=== PATIENT | male | born 1960 | race Caucasian/White ===

== ENCOUNTER 2020-09-25 19:25 | Emergency (ER) | payer BC, OTHER, SELFPAY ==
--- NOTE | 2020-09-25 19:34 | ED.EAR ---
HPI - Ear Problem General Chief complaint: Ear Stated complaint: Cough,Congestion, Lt ear History of Present Illness HPI Narrative: Patient states he has been having sinus congestion, nasal running at time with ear pressure and sore throat that started on Saturday progressed on Saturday and his ear started to really hurt today so he decided to take a nap and if it did not get better he would come in. Patient states that the ear did not feel better but worse . Related Data Home Medications Medication Instructions Recorded Confirmed adalimumab [Humira Pen] 40 mg SUBCUT MONTHLY 09/25/20 09/25/20 aspirin 81 mg PO DAILY 09/25/20 09/25/20 budesonide-formoterol [Symbicort] 4.5 inh INHALATION DAILY 09/25/20 09/25/20 chlorthalidone 52 mg PO DAILY 09/25/20 09/25/20 ibuprofen 800 mg PO DAILY 09/25/20 09/25/20 losartan 25 mg PO DAILY 09/25/20 09/25/20 Allergies Allergy/AdvReac Type Severity Reaction Status Date / Time acetaminophen [From [place]] AdvReac Severe Hallucinati Verified 09/25/20 19:51 ng hydrocodone [From [place]] AdvReac Severe Hallucinati Verified 09/25/20 19:51 ng Review of Systems Review of Systems: Narrative: CONSTITUTIONAL: Denies fever, chills, or sweats. EYES: Denies visual changes, redness, or discharge. ENT: Reports rhinorrhea, congestion, sore throat, or complains of otalgia. CARDIOVASCULAR:Denies chest pain, palpitations, or edema. RESPIRATORY: Reports cough or dyspnea. GASTROINTESTINAL: Denies abdominal pain, nausea, vomiting, or diarrhea. GENITOURINARY: Denies dysuria or hematuria. SKIN:[Denies rash or itching. MUSCULOSKELETAL:Denies back pain, joint pain, or myalgia. NEUROLOGIC: Denies headache, numbness, or weakness. PSYCHIATRIC:Denies anxiety or depression PMFSH Social History Social History Alcohol intake: current Comments At time as signature, I have reviewed and agree with nursing past medical, social, surgical and family history. Please see nursing chart for further information. There is no relevant family history pertinent to the presenting complaint. Exam Narrative: Exam Narrative: My normal exam GENERAL:Well-appearing, well-nourished, and in no acute distress. HEAD:Normocephalic, atraumatic. EYES: PERRLA and EOMI. ENT: Nares clear, clear rhinorrhea . Mucous membranes moist. left TM bulging and fluid noted with erythema and blood noted in auditory canal. Pharyngeal erythema congestion noted. NECK: Supple. CHEST: Clear to auscultation. No respiratory distress. HEART: Regular rate and rhythm. No murmur heard. Normal peripheral pulses. ABDOMEN: Soft, nontender, nondistended, normal active bowel sounds. EXTREMITIES: Normal range of motion. No edema. SKIN: Warm, dry, no rash. NEURO: No focal deficits. Alert and oriented x3. Course OUTPATIENT ADMITTING CLERK/PA Physician Supervision Discussion with patient that he could take antihistamines but it is not recommended for long period of time since he has high blood pressure but for the next couple of day he may benefit from it and get the fluid out from behind his ear. Vital Signs Vital signs: Vital Signs Temperature 97.7 F 09/25/20 19:38 Pulse Rate 09/25/20 19:38 Respiratory Rate 09/25/20 19:38 Blood Pressure 146/82 H 09/25/20 19:38 Pulse Oximetry 98 09/25/20 19:38 Temperature 97.7 F 09/25/20 19:38 Pulse Rate 09/25/20 19:38 Respiratory Rate 18 09/25/20 19:38 Blood Pressure 146/82 H 09/25/20 19:38 Pulse Oximetry 98 09/25/20 19:38 Medical Decision Making Vital Signs Vital Signs: Vital Signs Temperature 97.7 F 09/25/20 19:38 Pulse Rate 09/25/20 19:38 Respiratory Rate 09/25/20 19:38 Blood Pressure 146/82 H 09/25/20 19:38 Pulse Oximetry 98 09/25/20 19:38 Temperature 97.7 F 09/25/20 19:38 Pulse Rate 09/25/20 19:38 Respiratory Rate 18 09/25/20 19:38 Blood Pressure 146/82 H 09/25/20 19:38 Pulse Oximetry 98 09/25/20 19:38 Discharge Plan [facility]charge [facility]
[2020-09-25 19:38] VITALS: BP 146/82; PULSE 69; RESP 18; TEMP 36.5; O2SAT 98
== END 2020-09-25 20:02 | disposition home or self-care (01) ==
PROVIDERS: Emergency Provider Nurse Practitioner Family
DX: H72.92 Unspecified perforation of tympanic membrane, left ear (principal); H66.90 Otitis media, unspecified, unspecified ear; I10 Essential (primary) hypertension; J45.909 Unspecified asthma, uncomplicated; M06.9 Rheumatoid arthritis, unspecified; Z96.653 Presence of artificial knee joint, bilateral
CPT/HCPCS: 99213; G0463

== ENCOUNTER 2022-07-02 18:55 | Emergency (ER) | payer BC, OTHER, SELFPAY ==
[2022-07-02 19:09] VITALS: BP 133/77; PULSE 84; RESP 18; TEMP 37.4; O2SAT 95
--- NOTE | 2022-07-02 19:33 | ED.URI ---
HPI - URI/Sore Throat General Chief Complaint: Upper Respiratory Infection Stated Complaint: covid + home test Source: patient Mode of arrival: ambulatory Limitations: no limitations History of Present Illness HPI Narrative: 62-year-old male [facility] complains of headache, runny nose, cough, body aches, chills, fatigue since yesterday. Patient reports that he tested positive for COVID tonight at 5:00 p.m.. Patient reports that he is here today wanting antivirals. Patient reports that he has inhaler at home that he has not used. Patient is a nonsmoker. Patient denies recent travel. Patient denies sick contacts. Patient has shortness of breath, wheezing, nausea vomiting or diarrhea. Patient has history of RA, has received his last Humira injection approximately 1 week ago MD elicited complaint: cough, rhinorrhea and nasal congestion Onset (ago): day(s) (2) Able to tolerate fluids by mouth: Yes Exacerbating factors: nothing Relieving factors: nothing Treatments prior to arrival: cold medicine Related Data Home Medications Medication Instructions Recorded Confirmed adalimumab 40 mg/0.8 mL 40 mg subcut MONTHLY 09/25/20 07/02/22 subcutaneous pen kit (Humira Pen) chlorthalidone 25 mg tablet 52 mg PO DAILY 09/25/20 07/02/22 losartan 25 mg tablet 25 mg PO DAILY 09/25/20 07/02/22 mometasone-formoterol HFA 200 inhalation 07/02/22 mcg-5 mcg/actuation aerosol inhaler (Dulera) tamsulosin 0.4 mg capsule mg PO 07/02/22 Allergies Allergy/AdvReac Type Severity Reaction Status Date / Time acetaminophen [From [place]] AdvReac Severe Hallucinati Verified 10/11/20 10:49 ng hydrocodone [From [place]] AdvReac Severe Hallucinati Verified 10/11/20 10:49 ng Review of Systems Constitutional: Constitutional: Reports chills, Reports fatigue, Denies fever(s) and Denies weakness ENT: Denies vertigo, Denies dizziness, Denies epistaxis, Reports nasal congestion and Reports sore throat Respiratory: Respiratory: Reports cough, Denies dyspnea and Denies wheezing Gastrointestinal: Gastrointestinal: Denies diarrhea, Denies nausea and Denies vomiting Integumentary/Breasts: Skin/Breast: Denies pruritus, Denies erythema, Denies rash and Denies skin ulcer Neurologic: Denies confusion, Denies vertigo, Denies dizziness, Denies syncope and Reports headache(s) PMFSH Family History Family History Father Heart disease Mother Diabetes mellitus Heart disease Grandparent Diabetes mellitus Social History Social History Smoking status: Never smoker Alcohol intake: current Substance use: never Substance use type: does not use Gender identity (if verbalized by the patient): Male Comments At time of signature, I agree with nursing past medical, surgical, social and family history. There is no relevant family history pertinent to the presenting complaint. Exam Const: General: healthy appearing and no acute distress Nutritional Appearance: well nourished Orientation/consciousness: patient oriented x3 Limitations: no limitations HENMT: Head: normal to inspection Ears: external ears normal, TM's normal bilaterally and EAC's normal Face and sinus: normal facial exam Mouth: Yes Normal oral and palatal mucosa present, Yes lip normal and Yes moist mucous membranes Teeth and gingiva: dentition normal Throat: posterior oropharynx normal and uvula midline Other: Moderate nasal congestion noted Eyes: Conjunctivae: conjunctivae normal Neck: Neck: normal visual inspection Resp: Effort & Inspection: normal respiratory effort and not labored Auscultation: clear to auscultation bilaterally, no crackles, no rales, no rhonchi and no wheezes Cardio: Rate: regular rate Rhythm: regular rhythm Heart sounds: no murmurs Skin: General skin exam: normal color Rashes: no rashes Neuro: General: patient reinaldo
== END 2022-07-02 19:47 | disposition home or self-care (01) ==
PROVIDERS: Emergency Provider Nurse Practitioner Family
DX: U07.1 COVID-19 (principal); I10 Essential (primary) hypertension; J45.909 Unspecified asthma, uncomplicated; M06.9 Rheumatoid arthritis, unspecified; Z96.653 Presence of artificial knee joint, bilateral
CPT/HCPCS: 99213; G0463

== ENCOUNTER 2023-09-16 08:43 | Inpatient (IN) | payer BC, OTHER, SELFPAY ==
[2023-09-16] VITALS (33 sets, daily range): BP systolic 108–150; BP diastolic 66–84; PULSE 78–118; RESP 10–23; TEMP 36.8–38.1; O2SAT 92–99; BMI 29.5
--- NOTE | ~2023-09-16 | US_ITS ---
EXAMINATION: US carotid duplex BI DATE: 09/20/2023 11:56 INDICATION: Cerebrovascular disease. TECHNIQUE: Grayscale, color Doppler, and pulsed Doppler images of the cervical carotid arteries were obtained. The degree of vessel stenosis is placed in one of the following categories: normal, <50%, 5 0-69%, >=70% but less than near-occlusion, near-occlusion, or total occlusion. Note that percent sten osis relative to normal distal artery lumen diameter is indirectly measured from velocity measurement s as described by Jaxon, et al. Radiology 2003; 229:340-346. COMPARISON: None. FINDINGS: RIGHT: The right common carotid artery (CCA) peak systolic velocity (PSV) is 68 cm/s. The right internal car otid artery (ICA) PSV is 50 cm/s. The right ICA end-diastolic velocity (EDV) is 20 cm/s. The right IC A/CCA PSV ratio is 0.7. Grayscale and color Doppler images yield an estimate of <50% diameter reducti on from plaque in the ICA. There is antegrade flow in the right vertebral artery. LEFT: The left CCA PSV is 58 cm/s. The left ICA PSV is 63 cm/s. The left ICA EDV is 22 cm/s. The left ICA/C CA PSV ratio is 1.1. Grayscale and color Doppler images yield an estimate of <50% diameter reduction from plaque in the ICA. There is antegrade flow in the left vertebral artery. IMPRESSION: 1. <50% stenosis in the right internal carotid artery. 2. <50% stenosis in the left internal carotid artery. Reviewed, dictated and finalized at location A.
--- NOTE | ~2023-09-16 | CT_ITS ---
EXAMINATION: CT chest abdomen pelvis w con DATE: 09/21/2023 16:44 INDICATION: sepsis, chest wall cellulitis . TECHNIQUE: Computed tomography (CT) of the chest, abdomen, and pelvis was performed with 100 mL Omnip aque-350 intravenous contrast. Automated exposure control and iterative reconstruction technique were employed. The dose-length product was 1090.88 mGy-cm. COMPARISON: CT soft tissue neck, 10/08 FINDINGS: CHEST: Thoracic aorta: No significant dilation. No dissection. Lung parenchyma and airways: Biapical pleural scarring. Bilateral dependent atelectasis. Patent airwa ys. Thoracic inlet, axillae and chest wall: No thyroid or soft tissue mass. Prominent right subpectoral a nd axillary lymph nodes. Enlarged right paratracheal lymph nodes. Subcutaneous stranding in the right lower neck. Mediastinum: No mass or lymphadenopathy. Heart and pericardium: Mild cardiomegaly. No pericardial effusion. Coronary artery calcifications: Moderate. Pleura: Trace left pleural and small right pleural fluid collections. Thoracic bones: No acute osseous finding in the chest. ABDOMEN/PELVIS: Liver: Normal. Biliary/Gallbladder: Cholelithiasis. No bile duct dilation. Pancreas: No mass or duct dilation. Spleen: 13 mm hemangioma. Adrenals:No mass. Kidneys: No suspicious mass, obstructing stone, or hydronephrosis. Simple bilateral renal cysts. Mild bilateral perinephric and periureteral stranding. GI tract: No small or large bowel dilation. Normal appendix. Diverticulosis without diverticulitis. Mesentery/Peritoneum: No ascites, mass, or free air. Retroperitoneum: No mass Atherosclerotic abdominal aortic and/or arterial calcifications. Pelvis: Pelvic organs are within normal limits. Minimal free pelvic fluid. Soft Tissues: Soft tissues and body wall unremarkable. Abdominopelvic bones: No acute osseous finding in the abdomen/pelvis. IMPRESSION: Bilateral dependent atelectasis, greater in the right lung. Infection is not excluded. Trace left and small right pleural effusions. Right lower neck subcutaneous stranding, with paratracheal lymphadenopathy, similar to the prior exam ination. Correlate for recent procedure or clinical findings of infection/cellulitis. Mild perinephric stranding and periureteral stranding, which could represent ascending infection. Cor relate with urinalysis. Reviewed, dictated and finalized at location K. IMPRESSION: Bilateral dependent atelectasis, greater in the right lung. Infection is not ex cluded. Trace left and small right pleural effusions. Right lower neck subcutaneous stranding, with paratracheal lymphadenopathy, sim ilar to the prior examination. Correlate for recent procedure or clinical findi ngs of infection/cellulitis. Mild perinephric stranding and periureteral stranding, which could represent as cending infection. Correlate with urinalysis.
--- NOTE | ~2023-09-16 | CT_ITS ---
CT soft tissue neck w con Ordering provider: Juany Pastor PA-C History: 63 years Male with . swelling/fullness R lateral lower neck . Comparison: None. Technique: CT soft tissues neck was performed with contrast. . Automated exposure control and iterat gibran reconstruction technique were employed. The dose-length product was 611.87 mGy-cm. 100 mL Omnipaq ue 350 was given IV. Findings: LOWER HEAD: The visualized brain parenchyma, optic globes/orbits and mastoids are normal. Bilateral ethmoid sinus disease. Bilateral maxillary sinus disease. SALIVARY GLANDS: Normal. THYROID: Normal. SUPRAHYOID DEEP SPACES: Enlarged lymph nodes are seen in the parapharyngeal and posterior triangle ar eas. The largest measures 1.4 x 0.9 CNM. CAROTID ARTERIES: Normal. JUGULAR VEINS: Normal. TONSILS: Normal. ORAL CAVITY: Partially obscured by dental amalgam but normal as visualized. PHARYNX, LARYNX AND TRACHEA: Patent and normal. No prevertebral soft tissue swelling. SUPERFICIAL SOFT TISSUES: Fat stranding in the right supraclavicular area with multiple lymph nodes t he largest measures 2.2 cm. Edema in the right subcutaneous tissues of the supraclavicular area is al so noted THORACIC INLET/VISUALIZED UPPER CHEST: Normal. SKELETAL: Age appropriate degenerative changes. IMPRESSION: 1. Fat stranding in the right lower neck with swelling and subcutaneous edema. This is most likely i nflammatory. Follow-up advised. 2. Enlarged lymph nodes in the parapharyngeal and posterior triangle areas. Reviewed, dictated and finalized at location A. IMPRESSION: 1. Fat stranding in the right lower neck with swelling and subcutaneous edema. This is most likely inflammatory. Follow-up advised. 2. Enlarged lymph nodes in the parapharyngeal and posterior triangle areas.
--- NOTE | ~2023-09-16 | MR_ITS ---
MRI of the cervical spine Clinical History: Demyelinating disease Technique: Axial T2-weighted and gradient images, and sagittal T1-weighted, T2-weighted, and STIR tania ges were acquired. Following intravenous administration of 20 cc MultiHance gadolinium, T1-weighted f at-sat imaging was performed in the axial and sagittal planes. Findings: There is no fracture or subluxation of the cervical spine. No suspicious bone marrow signal abnormality seen. At C2-C3, there is mild central disc bulge. There is mild bilateral facet arthropathy. No central can al stenosis, cord compression or definite neural foraminal narrowing. At C3-C4, there is disc osteophyte complex and mild facet arthropathy, with moderate to severe canal stenosis and cord compression. There is bilateral significant neural foraminal narrowing. At C4-C5, there is advanced degenerative disc narrowing. Disc osteophyte complex and facet arthropath y result in moderate to severe spinal canal stenosis and cord compression. There is severe bilateral neural foraminal narrowing. At C5-C6, there is advanced degenerative disc narrowing. There is disc osteophyte complex resulting i n moderate canal stenosis and cord compression. There is severe bilateral neural foraminal narrowing. At C6-C7, there is disc osteophyte complex resulting in moderate to severe spinal canal stenosis and cord compression. There is moderate to severe bilateral neural foraminal narrowing, left worse than r ight, with left-sided facet arthropathy in particular. Possible minimal areas of central increased signal in the spinal cord, this is most likely related to myelomalacia/compression changes rather than demyelinating disease. Paravertebral soft tissues are u nremarkable. No abnormal postcontrast enhancement identified. Impression: Severe degenerative spondylosis, as detailed above, with moderate to severe spinal canal stenosis and cord compression at C3-C4, C4-C5, C5-C6, and C6-C7. Mild increased signal centrally in the cord is l ikely related to myelomalacia/cord compression rather than demyelinating disease. Multilevel neural foraminal narrowing, as above. Reviewed, dictated and finalized at location M. Impression: Severe degenerative spondylosis, as detailed above, with moderate to severe spi nal canal stenosis and cord compression at C3-C4, C4-C5, C5-C6, and C6-C7. Mild increased signal centrally in the cord is likely related to myelomalacia/cord compression rather than demyelinating disease. Multilevel neural foraminal narrowing, as above.
--- NOTE | ~2023-09-16 | MR_ITS ---
MR brain/brain stem wo/w con Ordering provider: Mateo Fonseca MD History: 63 years Male with . hallucinations, bacteremia . Comparison: CT head performed yesterday. Technique: MRI brain was performed with and without contrast. 20 mL of MultiHance was given IV. FINDINGS: BONES: Normal. CRANIOCERVICAL JUNCTION: normal. PITUITARY: Normal. MAJOR INTRACRANIAL VESSELS: Normal flow void. OPTIC NERVES AND CRANIAL NERVES VII AND VIII COMPLEXES: Bright signal is seen in the right optic nerv e with postcontrast enhancement. Evaluation for optic neuritis is advised. BRAIN PARENCHYMA AND CSF SPACES: Mild nonspecific T2 white matter hyperintensities are seen in a yvette ateral periventricular and deep white matter distribution which are likely related to chronic ischemi c small vessel disease. Mild diffuse cortical atrophy. The brainstem and cerebellum are normal. No ac baljinder or chronic intracranial hemorrhage. No extra axial fluid collections. Diffusion weighted and ADC mapping images reveal no recent ischemia. No midline shift or mass effect. No abnormal contrast enhan cement. PARANASAL SINUSES: Bilateral ethmoid sinus disease. Bilateral sphenoid sinus disease. Bilateral maxil esa sinus disease. MASTOIDS: Minimal fluid effusions seen in the left mastoid air cells posteriorly. SUPERFICIAL/SURROUNDING SOFT TISSUES: Normal. IMPRESSION: 1. Multiple T2 and FLAIR hyperintense signal areas which is suggestive of deep white matter ischemic changes versus white matter disease. Clinical correlation advised. 2. T2 bright signal in the right optic nerve with postcontrast enhancement. Evaluation for optic arely ritis is advised.. 3. Pansinusitis. 4. No other definite abnormality seen. Reviewed, dictated and finalized at location A. IMPRESSION: 1. Multiple T2 and FLAIR hyperintense signal areas which is suggestive of deep white matter ischemic changes versus white matter disease. Clinical correlatio n advised. 2. T2 bright signal in the right optic nerve with postcontrast enhancement. Ev aluation for optic neuritis is advised.. 3. Pansinusitis. 4. No other definite abnormality seen.
--- NOTE | ~2023-09-16 | MR_ITS ---
MRI of the thoracic spine Clinical History: Demyelinating disease Technique: Axial T2-weighted and gradient images, and sagittal T1-weighted, T2-weighted, and STIR tania ges were acquired. Following intravenous administration of 20 cc MultiHance gadolinium, T1-weighted f at-sat imaging was performed in the axial and sagittal planes. Findings: There is no fracture or subluxation of the thoracic spine. Vertebral bodies maintain normal height and alignment. No suspicious bone marrow signal abnormality seen. No disc bulge or herniation seen at any thoracic level. There is no spinal canal stenosis, cord compr ession, or definite neural foraminal narrowing at any thoracic level. No abnormal signal seen in the spinal cord. Paravertebral soft tissues are unremarkable. No abnormal postcontrast enhancement seen. IMPRESSION: No significant abnormality. Reviewed, dictated and finalized at [facility]. IMPRESSION: No significant abnormality.
--- NOTE | ~2023-09-16 | MR_ITS ---
EXAMINATION: MR brain/brain stem wo/w con DATE: 09/24/2023 13:11 INDICATION: Right optic neuritis. TECHNIQUE: Magnetic resonance imaging (MRI) of the brain and brainstem was performed without and with 20 mL Multihance intravenous contrast. Sequences included sagittal and axial T1-weighted SE, axial d iffusion-weighted FS SE, axial 3D SWAN, axial T2-weighted FLAIR, and axial T2-weighted FSE. Postcontr ast axial and coronal T1-weighted SE was obtained. Apparent diffusion coefficient (ADC) maps were cre ated. COMPARISON: 09/18/2023 FINDINGS: There are no areas of restricted diffusion to suggest acute infarction. No intracranial hemorrhage or abnormal intracranial mass lesion. There are scattered areas of nonspecific increased T2-weighted si gnal intensity in the cerebral white matter, predominantly involving the deep and periventricular whi te matter which is within normal limits for age and likely sequela of chronic small vessel ischemic d isease. There are no intraparenchymal signal abnormalities seen on the other pulse sequences. The helena tricles are symmetric and normal in size. There are no abnormal extra-axial fluid collections. Flow v oids are seen in the cerebral arteries on the T2-weighted sequences consistent with their expected pa tency. Visualized orbits and soft tissues are unremarkable. Specifically there is no asymmetric swell ing or abnormal T2 signal or enhancement along either optic nerve. There has been interval decrease i n previously moderate severity, currently mild mucosal thickening in the bilateral ethmoid maxillary and sphenoid sinuses. Unchanged small left mastoid effusion. There are no areas of abnormal enhanceme nt on the post contrast images. IMPRESSION: 1. Mild scattered foci of white matter T2 hyperintensity which is within normal limits for age and li raissa sequela of chronic small vessel ischemic disease. No acute intracranial process. 2. Normal symmetric appearance to the bilateral optic nerves with no swelling, increased T2 signal or enhancement to suggest optic neuritis. 3. Interval improvement in previously moderate, now mild mucosal thickening throughout the bilateral maxillary, ethmoid and sphenoid sinuses. Reviewed, dictated and finalized at location A. IMPRESSION: 1. Mild scattered foci of white matter T2 hyperintensity which is within normal limits for age and likely sequela of chronic small vessel ischemic disease. No acute intracranial process. 2. Normal symmetric appearance to the bilateral optic nerves with no swelling, increased T2 signal or enhancement to suggest optic neuritis. 3. Interval improvement in previously moderate, now mild mucosal thickening thr oughout the bilateral maxillary, ethmoid and sphenoid sinuses.
--- NOTE | ~2023-09-16 | US_ITS ---
EXAMINATION: US venous doppler [facility] DATE: 09/22/2023 08:34 INDICATION: Fever. TECHNIQUE: Grayscale ultrasound images without and with compression and Doppler ultrasound images of the bilateral lower extremity veins were obtained. COMPARISON: None. FINDINGS: The visualized portions of right common femoral vein, profunda (deep) femoral vein, femoral vein, pop liteal vein, peroneal veins, posterior tibial veins, and greater saphenous vein outflow are patent. The visualized portions of left common femoral vein, profunda femoral vein, femoral vein, popliteal v ein, peroneal veins, posterior tibial veins, and greater saphenous vein outflow are patent. IMPRESSION: 1. No deep venous thrombosis. Reviewed, dictated and finalized at location E.
--- NOTE | ~2023-09-16 | US_ITS ---
EXAMINATION: US venous doppler [facility] DATE: 09/23/2023 14:31 INDICATION: Lower limb swelling TECHNIQUE: Grayscale images without and with compression and Doppler images of the bilateral upper ex tremity veins were obtained. COMPARISON: None. FINDINGS: There is noncompressible occlusive appearing thrombus of the right cephalic vein at the elbow The rig ht internal jugular vein, subclavian vein, axillary vein, brachial vein, basilic vein, cephalic vein, radial vein, and ulnar vein are patent. IMPRESSION: 1. Occlusive appearing superficial venous thrombosis in the portion of the right cephalic vein at the elbow. No other venous thrombosis throughout the remainder of the right upper limb. Reviewed, dictated and finalized at location A. IMPRESSION: 1. Occlusive appearing superficial venous thrombosis in the portion of the righ t cephalic vein at the elbow. No other venous thrombosis throughout the remaind er of the right upper limb.
--- NOTE | 2023-09-16 09:59 | ED.GENADULT ---
HPI - General Adult General Chief complaint: Unspecified Stated complaint: swollen neck, vomiting, Time Seen by Provider: 09/16/23 09:41 Source: patient Mode of arrival: ambulatory Limitations: no limitations History of Present Illness HPI narrative: patient is a 63-year-old male who presents the ED with report of swelling to his right lateral neck. Patient reports he has had sinus drainage and a mild cough over the last several days. He has been taking DayQuil/ NyQuil for the symptoms with relief. This morning, he woke up with nausea and fullness/ swelling to his right lateral lower neck/ upper chest. Reports some discomfort with turning/rotating neck to L. Denies vomiting, abdominal pain. Denies any known injury. He then prompted here for further evaluation. He denies noticing any swelling yesterday. He denies difficulty breathing or swallowing. Denies shortness of breath. Denies fevers. Denies anterior chest pain. Related Data Home Medications Medication Instructions Recorded Confirmed chlorthalidone 25 mg tablet 25 mg PO DAILY 09/25/20 09/16/23 losartan 25 mg tablet 25 mg PO DAILY 09/25/20 09/16/23 mometasone-formoterol HFA 200 2 puff inhalation BID 07/02/22 09/16/23 mcg-5 mcg/actuation aerosol inhaler (Dulera) adalimumab 40 mg/0.8 mL See Rx Instructions .Route .COMPLEX 09/16/23 09/16/23 subcutaneous pen kit (Humira Pen) Allergies Allergy/AdvReac Type Severity Reaction Status Date / Time acetaminophen [From [place]] AdvReac Severe Hallucinati Verified 10/11/20 10:49 ng hydrocodone [From [place]] AdvReac Severe Hallucinati Verified 10/11/20 10:49 ng Review of Systems Review of Systems: CONSTITUTIONAL: Denies fever, chills, or sweats. ENT: See HPI. CARDIOVASCULAR: Denies chest pain. RESPIRATORY: Denies dyspnea. GASTROINTESTINAL: See HPI. GENITOURINARY: Denies dysuria or hematuria. MUSCULOSKELETAL: See HPI. NEUROLOGIC: Denies headache, dizziness, numbness, or weakness. All systems reviewed & are unremarkable except as noted in HPI and below PMFSH Past Medical History Medical History (Updated 09/16/23 @ 17:11 by Juany Pastor PA-C) Asthma Hypertension Rheumatoid arthritis Surgical History Surgical History History of bilateral knee arthroplasty (2016) Family History Family History Father Heart disease Mother Diabetes mellitus Heart disease Grandparent Diabetes mellitus Social History Social History (Updated 09/16/23 @ 13:26 by Gail Schreiber PA-C) Social History: Surrogate medical decision maker: Tori Irene, spouse. Code status: Full code. Smoking status: Never smoker Alcohol intake: current Substance use: never Substance use type: does not use Do You Feel Safe in your Home?: Yes Lack of Transportation: No Lack of Food: Never True Current Housing: I Have Housing Concerned About Future Housing: No Difficulty Paying Gas/Electric Bills: No Difficulty Paying for Meds: No Currently Unemployed: No Education: Trade/Vocational Certificate Difficulty w/ Childcare or Family Care: No Additional living arrangements comments: Lives with spouse in [place]. Additional occupation/education comments: [employer]. Spiritual care concerns: No Exam Narrative: GENERAL: Well appearing, well-nourished, non-toxic, in no acute distress. HEAD: Normocephalic, atraumatic. NECK: No midline cervical spinal tenderness. Area of swelling, fullness to R lateral lower neck down to R clavicular region, extending to R upper chest. No appreciable crepitus. Mild bruising vs erythema forming. Mild focal tenderness. No significant warmth or palpable fluctuance. No wounds. RESPIRATORY: Airway patent, respirations nonlabored. Clear to auscultation bilaterally, no rales, rhonchi, wheezing. No focal lung sounds. No stridor. CARDIOVASCULAR
[2023-09-16 10:00] LABS: Basophils Absolute Auto 0.1 K/mm3 (0.0-0.1); Basophils Percent Auto 0.4 % (0.2-1.2); Eosinophils Percent Auto 0.1 % (0-4.4); Hematocrit 39.9 % (42.0-52.0); Hemoglobin 14.1 g/dL (14.0-18.0); Immature Granulocyte Absolute 0.24 K/mm3 (0.00-0.031); Immature Granulocyte Percent A 1.2 % (0-0.5); Lymphocytes Percent Auto 3.4 % (18.3-44.2); Mean Corpuscular HGB Conc 35.3 g/dl (32-36); Mean Corpuscular Hemoglobin 34.6 pg (26-34); Mean Platelet Volume 10.8 fl (7.4-10.4); Monocytes Absolute Auto 1.7 K/mm3 (0.1-0.6); Monocytes Percent Auto 8.1 % (2.6-8.5); Neutrophils Percent Auto 86.8 % (45.5-73.1); Platelet Count Result 251 k/mm3 (150-375); Red Blood Count 4.07 M/mm3 (4.6-6.20); Red Cell Distribution Width 12.2 % (11.5-14.5); White Blood Count 20.7 K/mm3 (4.5-10.0)
[2023-09-16 10:11] LABS: Alanine Aminotransferase 30 U/L (6-50); Alkaline Phosphatase 73 U/L (38-126); Anion Gap 8 mmol/L (4-12); Aspartate Amino Transferase 36 U/L (17-59); Bilirubin,Total 0.8 mg/dL (0.2-1.3); Blood Urea Nitrogen 23 mg/dL (9-20); Calcium 9.1 mg/dL (8.4-10.2); Carbon Dioxide 27 mmol/L (22-30); Chloride 103 mmol/L (98-107); Estimated CRCL calculation 98 ml/min; Estimated Glomerular Filt Rate > 60; Glucose 111 mg/dL (65-110); Potassium 3.2 mmol/L (3.4-5.0); Sodium 138 mmol/L (137-145)
[2023-09-16 10:36] LABS: Influenza A QL RT-PCR Negative (Negative); Influenza B QL RT-PCR Negative (Negative); RSV RNA, RT-PCR Negative (Negative); SARS-CoV-2 RNA PCR Negative (Negative)
[2023-09-16] MEDS: POTASSIUM CHLORIDE 20 MEQ ER TABLET 40 MEQ PO (11:12)
[2023-09-16 11:20] LABS: Magnesium 1.6 mg/dL (1.6-2.3)
[2023-09-16] MEDS: MAGNESIUM SULF 1 GM/D5W 100 ML 1 GM/100 ML BAG IVPB (11:56)
[2023-09-16] MEDS: PIPERACILLN/TAZ 3.375GM/NS50ML 3.375 GM/50 ML BAG IVPB (13:09)
[2023-09-16] MEDS: MORPHINE SULFATE (*CRX) 4 MG/ML INJ IV PUSH (13:09)
[2023-09-16] MEDS: ONDANSETRON INJ 4 MG/2 ML VIAL IV PUSH (13:09)
--- NOTE | 2023-09-16 13:18 | PM.IMHP ---
H&P: HPI History of Present Illness Date/Time: 09/16/23 14:15 Chief Complaint: Swelling in the right neck. Narrative: This is a very pleasant 63-year-old male with hypertension, asthma, and rheumatoid arthritis on Humira who presented to the emergency department for evaluation of swelling in the right neck the patient provides the following history. He gives a 3 day history of sinus congestion and nonproductive cough for which he has been taking DayQuil and NyQuil with symptom relief. This morning he awoke with discomfort and fullness in the right lower neck/upper chest and with further questioning he mentions that bilateral supraclavicular lymph nodes seemed a bit swollen and tender the last day or so. He has not had any injury or trauma and denied open wounds over the affected area. He also denies fever, otalgia, odynophagia, dental pain, shortness of breath, and difficulties swallowing. He has no history of cellulitis and has no known history multidrug resistant organisms. In the ED: He was afebrile on arrival with stable vital signs. Labs were significant for a WBC count of 20.7, potassium 3.2, BUN 23, creatinine 0.80, lactic acid 1.2. Viral panel was negative. Soft tissue neck CT showed fat stranding in the right lower neck with swelling and subcutaneous edema, likely inflammatory, and enlarged lymph nodes in the pair of pharyngeal and posterior triangle areas. He was given a dose of piperacillin/tazobactam and vancomycin and is being admitted in this setting for further treatment. Review of Systems Review of Systems: 12 systems were reviewed and are negative except for as per HPI. [facility] Past Medical History Medical History (Updated 09/16/23 @ 20:12 by Gail Schreiber PA-C) Asthma Hypertension Immunocompromised patient Rheumatoid arthritis Surgical History Surgical History History of bilateral knee arthroplasty (2016) Family History Family History Father Heart disease Mother Diabetes mellitus Heart disease Grandparent Diabetes mellitus Social History Social History Social History: Surrogate medical decision maker: Tori Irene, spouse. Code status: Full code. Smoking status: Never smoker Alcohol intake: current Substance use: never Substance use type: does not use Do You Feel Safe in your Home?: Yes Lack of Transportation: No Lack of Food: Never True Current Housing: I Have Housing Concerned About Future Housing: No Difficulty Paying Gas/Electric Bills: No Difficulty Paying for Meds: No Currently Unemployed: No Education: Trade/Vocational Certificate Difficulty w/ Childcare or Family Care: No Additional living arrangements comments: Lives with spouse in [place]. Additional occupation/education comments: [employer]. Spiritual care concerns: No Meds Home Medications and Allergies Home Medications Medication Instructions Recorded Confirmed Type chlorthalidone 25 mg tablet 25 mg PO DAILY 09/25/20 09/16/23 History losartan 25 mg tablet 25 mg PO DAILY 09/25/20 09/16/23 History mometasone-formoterol HFA 200 2 puff inhalation BID 07/02/22 09/16/23 History mcg-5 mcg/actuation aerosol inhaler (Dulera) adalimumab 40 mg/0.8 mL See Rx Instructions .Route .COMPLEX 09/16/23 09/16/23 History subcutaneous pen kit (Humira Pen) Allergies Allergy/AdvReac Type Severity Reaction Status Date / Time acetaminophen [From [place]] AdvReac Severe Hallucinati Verified 10/11/20 10:49 ng hydrocodone [From [place]] AdvReac Severe Hallucinati Verified 10/11/20 10:49 ng Vital Signs Vital Signs - 24 hr 09/16/23 08:49 09/16/23 09:40 09/16/23 09:44 Temperature 99.1 F Pulse Rate 106 H 95 Respiratory Rate 14 20 18 Blood Pressure 126/84 121/72 Pulse Oximetry 95 96 95 Oxygen Delivery Room
[2023-09-16 13:19] LABS: Lactic Acid Reflex 1.2 mmol/L (0.7-2.0)
--- NOTE | 2023-09-16 13:42 | PC.NURSE ---
called report at 1342- Nurse busy in a patient room and was told she would call back in about five minutes
--- NOTE | 2023-09-16 14:06 | ADMGEN ---
This patient, Montez Irene, was admitted to Medical Room 241-. Patient/family oriented to hospital policies and general routines including ID bracelet, bed and alarms, visiting hours, pain management, procedures, bathroom and other care routines, personal items, smoking policy, room service/diet, and visiting hours. Information on how to activate the Rapid Response Team has been discussed. Patient/Family are encouraged to report perceived risks to care and to ask questions if they do not understand what they are told or what they should do.
[2023-09-16] MEDS: VANCOMYCIN 1,250 MG/NS 250 ML 1,250 MG/250 ML BAG 166.67 MG IVPB ×2 (14:21→15:50)
[2023-09-16 15:06] LABS: MRSA (PCR) NOT DETECTED (NOT DETECTE)
[2023-09-16] MEDS: CEFEPIME 2 GM/NS 50 ML 2 GM/50 ML BAG IVPB ×2 (15:32→21:58)
[2023-09-16] MEDS: MORPHINE SULFATE (*CRX) 4 MG/ML INJ 2 MG IV PUSH (15:56)
--- NOTE | 2023-09-16 20:20 | PCRCNOTE ---
Patient is refusing to wear his home cpap unit due to too much going on . Pt states he will wear it Saturday night.
[2023-09-16] MEDS: FLUTICASONE/SALMETEROL 230-21 MCG INHALER 1 PUFF 2 PUFF INHALATION (20:30)
[2023-09-16] MEDS: LACTATED RINGERS 1,000 ML 100 ML IV CONT (22:37)
[2023-09-17] VITALS (14 sets, daily range): BP systolic 116–126; BP diastolic 62–69; PULSE 86–102; RESP 16; TEMP 37.1–37.4; O2SAT 91–95
[2023-09-17] MEDS: VANCOMYCIN 1,500 MG/NS 500 ML 1,500 MG/500 ML BAG 250 MG IVPB ×2 (01:47→13:51)
[2023-09-17] MEDS: CEFEPIME 2 GM/NS 50 ML 2 GM/50 ML BAG IVPB ×3 (05:11→22:15)
[2023-09-17 05:26] LABS: Hematocrit 37.2 % (42.0-52.0); Hemoglobin 12.6 g/dL (14.0-18.0); Mean Corpuscular HGB Conc 33.9 g/dl (32-36); Mean Corpuscular Hemoglobin 34.3 pg (26-34); Mean Corpuscular Volume 101.4 fl (80-100); Mean Platelet Volume 11.3 fl (7.4-10.4); Platelet Count Result 232 k/mm3 (150-375); Red Blood Count 3.67 M/mm3 (4.6-6.20); Red Cell Distribution Width 12.8 % (11.5-14.5); White Blood Count 30.7 K/mm3 (4.5-10.0)
[2023-09-17 05:50] LABS: Anion Gap 7 mmol/L (4-12); Blood Urea Nitrogen 20 mg/dL (9-20); Calcium 8.2 mg/dL (8.4-10.2); Carbon Dioxide 25 mmol/L (22-30); Chloride 102 mmol/L (98-107); Estimated CRCL calculation 88 ml/min; Estimated Glomerular Filt Rate > 60; Glucose 129 mg/dL (65-110); Magnesium 1.8 mg/dL (1.6-2.3); Potassium 3.1 mmol/L (3.4-5.0); Sodium 134 mmol/L (137-145)
[2023-09-17 05:57] LABS: CRP 22.8 mg/dL (<1.0)
--- NOTE | 2023-09-17 07:18 | PM.IMPN ---
Progress Note: A&P Assessment and Plan (1) Cellulitis of neck: Code(s): L03.221 - Cellulitis of neck Status: Acute Assessment and Plan: Swelling to right neck without airway compromise CT of soft tissue neck shows fat stranding in the right lower neck with swelling with subcutaneous edema, most likely inflammatory. TMAX: 100.6 started on cefepime and vancomycin wbc 20.7-->30.7 upper respiratory panel negative, MRSA negative 09/16: Patient with ?burning? sore throat for 1 week with poor intake. Subjective chills. Suspect that he may have strep pharyngitis. Strep PCR ordered with culture. Procalcitonin was positive at 5.2 indicating bacterial infection. Patient is hemodynamically stable. While he does have quite an increase in his white count he likely has a degree of dehydration given his poor intake. Will put him on NS at 100 mL an hour. (2) Immunocompromised patient: Code(s): D84.9 - Immunodeficiency, unspecified Status: Acute Assessment and Plan: On Humira for RA. Medication currently on hold. (3) Hypokalemia: Code(s): E87.6 - Hypokalemia Status: Acute Assessment and Plan: Potassium 3.1 today replace with K+ 40 meq x 1 (4) Hypertension: Code(s): I10 - Essential (primary) hypertension Status: Acute Assessment and Plan: Blood pressures ranging 108-120's/60-70 review daily Resume home chlorthalidone and losartan (5) Asthma: Code(s): J45.909 - Unspecified asthma, uncomplicated Status: Acute Assessment and Plan: Stable Continue Dulera Plan Feeding: regular Analgesia: Tylenol Thromboembolic prophylaxis: Lovenox Lines: PIV Antibiotics: Cefepime and Vancomycin Disposition: Home when medically ready Advance Care Plan I have confirmed that the patient's Advanced Care Plan is present, code status is documented, or surrogate decision maker is listed in patient medical record.: Yes Medication Reconciliation I have utilized all available resources to obtain, update and review the patients current medications (includes all prescriptions, OTC, herbals, cannabis, and nutritional supplements).: Yes Subjective Date/time seen: 09/17/23 07:18 Interval history: This is a very pleasant 63-year-old male with hypertension, asthma, and rheumatoid arthritis on Humira who presented to the emergency department for evaluation of swelling in the right neck. 09/16: Patient is seen resting in bed with at bedside. He does not appear in acute distress. He states over the last week he has had a sore throat that he describes as burning. He has not been able to eat anything of substance other than Jell-O. He does admit to having 3 episodes of vomiting yesterday. He also has subjective chills and a minor headache. He denies dizziness, chest pain, shortness a breath, abdominal pain, diarrhea or constipation. His reports that he has also been having lower back pain which the patient attributes to poor body mechanics over time and likely arthritis. They also mention that he has intermittently been having capillary breaks to his left and right eye that occurs approximately every 3 months. Nursing and mention that the patient would like to transfer to [facility] given the elevation in his white count and specialist at that location. I did discuss with them that clinically he does not meet the means for transfer at this time. Unfortunately rheumatology does not admit to inpatient and medicine would not accept this transfer as there is no clinical need at this time. Review of Systems Review of Systems: 12 systems were reviewed and are negative except for as per HPI. All systems reviewed & are unremarkable except as noted in HPI and below Exam Narrative: General: well appearing, appears stated age. HEENT: normocephalic, atraumatic. Mucous membranes moist. EOMI,
[2023-09-17] MEDS: FLUTICASONE/SALMETEROL 230-21 MCG INHALER 1 PUFF 2 PUFF INHALATION ×2 (08:01→19:25)
[2023-09-17 08:49] LABS: Procalcitonin 5.2 ng/mL
[2023-09-17] MEDS: LOSARTAN POTASSIUM 25 MG TABLET PO (09:00)
[2023-09-17] MEDS: ENOXAPARIN 40 MG/0.4 ML SYRINGE SUB-Q (09:00)
[2023-09-17] MEDS: CHLORTHALIDONE 25 MG TABLET PO (09:00)
[2023-09-17] MEDS: POTASSIUM CHLORIDE 20 MEQ ER TABLET 40 MEQ PO (09:03)
[2023-09-17 10:29] LABS: Band Neutrophils Percent 28 % (0-6); Lymphocytes Absolute Manual 0.61 K/mm3 (1.1-4.5); Monocytes Absolute Manual 0.61 K/mm3 (0.1-0.90); Monocytes Percent Manual 2 % (3-9); Neutrophils Absolute Manual 29.47 K/mm3 (1.3-6.7); Neutrophils Percent Manual 68 % (46-73); Total Cells Counted 100
[2023-09-17 10:30] LABS: Platelet Estimate Adequate (Adequate); Schistocytes None Seen
[2023-09-17] MEDS: SODIUM CHLORIDE 0.9% IV 1,000 ML 100 ML IV CONT (11:06)
[2023-09-17 11:51] LABS: Strep Group A RT-PCR NOT DETECTED (Negative)
[2023-09-17 16:12] LABS: Monoscreen Negative (Negative); Negative Monotest Control Negative (Negative); Positive Monotest Control Positive (Positive)
[2023-09-18] VITALS (13 sets, daily range): BP systolic 125–141; BP diastolic 65–76; PULSE 71–82; RESP 14–18; TEMP 36.4–37.6; O2SAT 92–98
[2023-09-18] MEDS: SODIUM CHLORIDE 0.9% IV 1,000 ML 100 ML IV CONT ×2 (00:55→16:03)
[2023-09-18 02:09] LABS: Vancomycin Trough 8.2 ug/mL (10.0-20.0)
[2023-09-18] MEDS: VANCOMYCIN 1,750 MG/NS 500 ML 1,750 MG/500 ML BAG 250 MG IVPB ×3 (02:46→18:57)
[2023-09-18 04:54] LABS: Hemoglobin 11.5 g/dL (14.0-18.0); Mean Corpuscular HGB Conc 35.9 g/dl (32-36); Mean Corpuscular Hemoglobin 35.3 pg (26-34); Mean Corpuscular Volume 98.2 fl (80-100); Platelet Count Result 189 k/mm3 (150-375); Red Blood Count 3.26 M/mm3 (4.6-6.20); Red Cell Distribution Width 12.4 % (11.5-14.5); White Blood Count 27.7 K/mm3 (4.5-10.0)
[2023-09-18 05:14] LABS: Estimated CRCL calculation 111 ml/min; Estimated Glomerular Filt Rate > 60; Magnesium 1.8 mg/dL (1.6-2.3)
[2023-09-18 05:22] LABS: CRP 26.5 mg/dL (<1.0)
[2023-09-18 05:37] LABS: Procalcitonin 3.4 ng/mL
[2023-09-18 05:52] LABS: Band Neutrophils Percent 4 % (0-6); Neutrophils Percent Manual 96 % (46-73); Platelet Estimate Adequate (Adequate); Schistocytes None Seen; Total Cells Counted 100
[2023-09-18] MEDS: CEFEPIME 2 GM/NS 50 ML 2 GM/50 ML BAG IVPB ×3 (06:03→20:57)
[2023-09-18] MEDS: ACETAMINOPHEN 325 MG TABLET 650 MG PO ×2 (07:56→20:56)
[2023-09-18] MEDS: CHLORTHALIDONE 25 MG TABLET PO (08:13)
[2023-09-18] MEDS: ENOXAPARIN 40 MG/0.4 ML SYRINGE SUB-Q (08:13)
[2023-09-18] MEDS: LOSARTAN POTASSIUM 25 MG TABLET PO (08:13)
[2023-09-18 08:29] LABS: Alanine Aminotransferase 32 U/L (6-50); Alkaline Phosphatase 70 U/L (38-126); Anion Gap 7 mmol/L (4-12); Aspartate Amino Transferase 46 U/L (17-59); Bilirubin,Total 0.7 mg/dL (0.2-1.3); Blood Urea Nitrogen 17 mg/dL (9-20); Calcium 8.4 mg/dL (8.4-10.2); Carbon Dioxide 24 mmol/L (22-30); Chloride 100 mmol/L (98-107); Estimated CRCL calculation 111 ml/min; Estimated Glomerular Filt Rate > 60; Glucose 108 mg/dL (65-110); Potassium 3.1 mmol/L (3.4-5.0); Sodium 131 mmol/L (137-145)
[2023-09-18] MEDS: FLUTICASONE/SALMETEROL 230-21 MCG INHALER 1 PUFF 2 PUFF INHALATION (08:35)
--- NOTE | 2023-09-18 16:12 | PM.IMPN ---
Progress Note: A&P Assessment and Plan (1) Sepsis: Qualifiers: Sepsis acute organ dysfunction status: unspecified Sepsis type: sepsis due to unspecified organism Qualified Code(s): A41.9 - Sepsis, unspecified organism Code(s): A41.9 - Sepsis, unspecified organism Status: Acute Assessment and Plan: Patient developed sore throat that progressed to swelling and erythema to right neck without airway compromise. Sepsis present on admission with fever, leukocytosis, subjective chills and tachycardia. CT of soft tissue neck shows fat stranding in the right lower neck with swelling with subcutaneous edema, most likely inflammatory. Cultures obtained and started on cefepime and vancomycin WBC 21K-->31K -->27K Monospot negative. Group A Strept PCR negative, Influenza/RSV/COVID PCR negative. MRSA note detected. BCx 09/15 growing Group A strept. Repeat BCx 09/16 NGTD having odd neurologic symptoms. Related to strept toxin? Doubt meningeal inflammation. Continue current abx. Check Echo. Check brain MRI. (2) Cellulitis of neck: Code(s): L03.221 - Cellulitis of neck Status: Acute Assessment and Plan: As above (3) Immunocompromised patient: Code(s): D84.9 - Immunodeficiency, unspecified Status: Acute Assessment and Plan: Patient with RA on Humira. Humira on hold. (4) Hypokalemia: Code(s): E87.6 - Hypokalemia Status: Acute Assessment and Plan: Potassium low and has naima replaced Potassium better at 3.1 Continue to replace. Replace mag today as well. Stop IV fluids since might be washing out potassium (5) Hypertension: Code(s): I10 - Essential (primary) hypertension Status: Acute Assessment and Plan: Patient's blood pressure was reviewed on 09/17 Blood pressure remains well controlled. Will hold chlorthalidone as we try to correct potassium (6) Asthma: Code(s): J45.909 - Unspecified asthma, uncomplicated Status: Acute Assessment and Plan: Stable . no wheezing. Hold Advair given this increases risk of PNA Plan Brief run of NSVT - Check Echo. Replace electrolytes. Continue tele DVT prophylaxis - Lovenox Code status - full Disposition: Home when medically ready Subjective Date/time seen: 09/18/23 16:12 Interval history: 63yo male with HTN, asthma and RA on Humira who presented to the emergency department for evaluation of swelling in the right neck. Assuming care. Chart reviewed. Patient's sore throat is better. The neck pain is improved. He is able to look to the left and right without much difficulty now. Last night he was having hallucinations when he closes eyes seeing pictures of bases. Does feel mildly confused today. He states when he looks out the window to the right he sees spots like bugs flying in different directions (but not if looking elsewhere). He denies any chest pain or palpitations. The drainage in the back of his throat is improved as well. No shortness of breath. No weakness in arms or legs. No numbness or tingling in his extremities. He has been up walking to the bathroom. Exam Narrative: AF 98.6 129/69 75 18 94% ra Gen - NARD siting up in the chair Neck -normal ROM without signs of meningismus. Bulky adenopathy right supraclavicular area. Chest - CTA bilaterally, nml RR CV - RRR S1/S2. Telemetry showing 8 beat run of nonsustained V-tach as well as PVCs. Abd - Soft, NT/ND, Positive BS Ext - No pedal edema Neuro - Alert and orientedx4. Nonfocal exam. Psych - Nml mood and affect Skin - Warm and dry. Large erythematous patch starting at the base of the right side of the neck extending into his right upper arm and right upper chest. Spares the axilla. No open areas. Objective Data Vital Signs Vital Signs: Vital Signs - 24 hr 09/17/23 16:29 09/17/23 20:45 09/17/23 20:00 Temperature 99.0 F 98.8 F Pulse R
[2023-09-18] MEDS: MAGNESIUM SULF 2 GM/WATER 50ML 2 GM/50 ML BAG IVPB (17:59)
[2023-09-18] MEDS: POTASSIUM CHLORIDE 20 MEQ ER TABLET 40 MEQ PO (17:59)
[2023-09-19] VITALS (11 sets, daily range): BP systolic 121–141; BP diastolic 68–75; PULSE 65–75; RESP 14–20; TEMP 36.3–37.1; O2SAT 94–99
[2023-09-19 02:18] LABS: Vancomycin Trough 17.5 ug/mL (10.0-20.0)
[2023-09-19] MEDS: VANCOMYCIN 1,750 MG/NS 500 ML 1,750 MG/500 ML BAG 250 MG IVPB ×3 (03:42→18:35)
[2023-09-19 05:20] LABS: Hematocrit 34.2 % (42.0-52.0); Hemoglobin 11.9 g/dL (14.0-18.0); Mean Corpuscular HGB Conc 34.8 g/dl (32-36); Mean Corpuscular Hemoglobin 34.3 pg (26-34); Mean Corpuscular Volume 98.6 fl (80-100); Mean Platelet Volume 11.4 fl (7.4-10.4); Platelet Count Result 223 k/mm3 (150-375); Red Blood Count 3.47 M/mm3 (4.6-6.20); White Blood Count 26.9 K/mm3 (4.5-10.0)
[2023-09-19 05:42] LABS: Alanine Aminotransferase 33 U/L (6-50); Albumin Level 3.1 g/dL (3.5-5.1); Alkaline Phosphatase 81 U/L (38-126); Anion Gap 6 mmol/L (4-12); Aspartate Amino Transferase 38 U/L (17-59); Bilirubin,Total 0.7 mg/dL (0.2-1.3); Blood Urea Nitrogen 13 mg/dL (9-20); Carbon Dioxide 26 mmol/L (22-30); Chloride 101 mmol/L (98-107); Estimated CRCL calculation 128 ml/min; Estimated Glomerular Filt Rate > 60; Glucose 108 mg/dL (65-110); Potassium 2.8 mmol/L (3.4-5.0); Sodium 133 mmol/L (137-145)
[2023-09-19 05:50] LABS: CRP 18.8 mg/dL (<1.0)
--- NOTE | 2023-09-19 05:51 | ECG_ITS ---
Test Date: 2023-09-19 11:14:56 Measurements Intervals Dale Rate: 61 P: 31 AK: 159 QRS: -12 QRSD: 99 T: -10 QT: 441 QTc: 447 Interpretive Statements SINUS RHYTHM VOLTAGE CRITERIA FOR LVH CONSIDER INFERIOR INFARCT, AGE INDETERMINATE ABNORMAL ECG No previous ECG available for comparison Electronically Signed On 09-19-2023 16:59:17 CDT by Magdy Robles D.O.
[2023-09-19 05:53] LABS: Band Neutrophils Percent 13 % (0-6); Eosinophils Absolute Manual 0.26 K/mm3 (0.02-0.50); Eosinophils Percent Manual 1 % (0-4); Lymphocytes Absolute Manual 1.61 K/mm3 (1.1-4.5); Monocytes Percent Manual 3 % (3-9); Neutrophils Absolute Manual 24.21 K/mm3 (1.3-6.7); Neutrophils Percent Manual 77 % (46-73); Total Cells Counted 100
[2023-09-19 05:55] LABS: Anisocytosis 1+; Hypochromasia 2+; Platelet Estimate Adequate (Adequate)
[2023-09-19 05:56] LABS: Schistocytes None Seen
[2023-09-19] MEDS: CEFEPIME 2 GM/NS 50 ML 2 GM/50 ML BAG IVPB (05:57)
[2023-09-19 06:05] LABS: Procalcitonin 2.1 ng/mL
[2023-09-19] MEDS: POTASSIUM CHLORIDE 20 MEQ ER TABLET 40 MEQ PO ×2 (06:21→13:26)
[2023-09-19] MEDS: POTASSIUM CHLORIDE INJ 40 MEQ in SODIUM CHLORIDE 0.9% IV 500 ML 130 MEQ IVPB (06:22)
[2023-09-19] MEDS: LOSARTAN POTASSIUM 25 MG TABLET PO (08:08)
[2023-09-19] MEDS: CYANOCOBALAMIN 1,000 MCG TABLET 1000 MCG PO (08:08)
[2023-09-19] MEDS: THIAMINE HCL 200 MG/2 ML VIAL 100 MG IV PUSH (08:08)
[2023-09-19] MEDS: ENOXAPARIN 40 MG/0.4 ML SYRINGE SUB-Q (08:08)
[2023-09-19] MEDS: ACETAMINOPHEN 325 MG TABLET 650 MG PO (08:14)
[2023-09-19 08:56] LABS: Folic Acid 8.3 ng/mL (2.76->20)
[2023-09-19 09:33] LABS: Anion Gap 7 mmol/L (4-12); Blood Urea Nitrogen 12 mg/dL (9-20); Calcium 8.1 mg/dL (8.4-10.2); Carbon Dioxide 24 mmol/L (22-30); Chloride 101 mmol/L (98-107); Estimated CRCL calculation 128 ml/min; Estimated Glomerular Filt Rate > 60; Glucose 164 mg/dL (65-110); Potassium 3.3 mmol/L (3.4-5.0); Sodium 132 mmol/L (137-145)
[2023-09-19] MEDS: cefTRIAXone 2 GM/NS 100 ML 2 GM/100 ML BAG IVPB (12:52)
--- NOTE | 2023-09-19 12:59 | PM.IMPN ---
Progress Note: A&P Assessment and Plan (1) Sepsis: Qualifiers: Sepsis acute organ dysfunction status: unspecified Sepsis type: sepsis due to unspecified organism Qualified Code(s): A41.9 - Sepsis, unspecified organism Code(s): A41.9 - Sepsis, unspecified organism Status: Acute Assessment and Plan: Patient developed sore throat that progressed to swelling and erythema to right neck without airway compromise. Sepsis present on admission with fever, leukocytosis, subjective chills and tachycardia. CT of soft tissue neck shows fat stranding in the right lower neck with swelling with subcutaneous edema, most likely inflammatory. Cultures obtained and started on cefepime and vancomycin WBC 21K-->31K -->27K --> 27K Monospot negative. Group A Strept PCR negative, Influenza/RSV/COVID PCR negative. MRSA note detected. BCx 09/15 growing Group A strept. Repeat BCx 09/16 NGTD Echo ordered Continue IV Vanco for now. Okay to change Cefepime to Rocephin. Watch WBC. Repeat scans if WBC does not improve as expected. (2) Right optic neuritis: Code(s): H46.9 - Unspecified optic neuritis Status: Acute Assessment and Plan: Patient having visual changes. MRI brain showin. Multiple T2 and FLAIR hyperintense signal areas which is suggestive of deep white matter ischemic changes versus white matter disease. 2. T2 bright signal in the right optic nerve with postcontrast enhancement 3. Pansinusitis. Optic neuritis usually causes pain but patietn only conplains of visual changes. Could be related to his RA. Consider related to his current inflammartory process. B12 and folate deficiency can cause this so will check levels. Ischemic neuropathy? No steroids given ongoing infection. Will consult neurology. (3) White matter disease, unspecified: Code(s): R90.82 - White matter disease, unspecified Status: Acute Assessment and Plan: As above. Could be part of the process associated with his optic nerve findings or related to chronic cerebral white matter disease. Neurology consult (4) Cellulitis of neck: Code(s): L03.221 - Cellulitis of neck Status: Acute Assessment and Plan: As above (5) Immunocompromised patient: Code(s): D84.9 - Immunodeficiency, unspecified Status: Acute Assessment and Plan: Patient with RA on Humira. Humira on hold. (6) Hypokalemia: Code(s): E87.6 - Hypokalemia Status: Acute Assessment and Plan: Potassium low and was replaced. Potassium 2.8 this morning and replaced again. Mag 2.0 Continue to replace. (7) Hypertension: Code(s): I10 - Essential (primary) hypertension Status: Acute Assessment and Plan: Patient's blood pressure was reviewed on 09/18 Blood pressure remains well controlled. Holding chlorthalidone as we correct potassium (8) Asthma: Code(s): J45.909 - Unspecified asthma, uncomplicated Status: Acute Assessment and Plan: Stable . no wheezing. Holding Advair Plan Brief run of NSVT - Check Echo. Replace electrolytes. Continue tele DVT prophylaxis - Lovenox Code status - full Disposition: Home when medically ready Subjective Date/time seen: 09/19/23 12:59 Interval history: 63yo male with HTN, asthma and RA on Humira who presented to the emergency department for evaluation of swelling in the right neck. Patient feels better. Still has the spots (like flying bugs) when he looks to the right but this symptom has improved. It is with both eyes. No nausea or vomiting. Eating better. Had a bowel movement. He is up walking to the bathroom. Also having less episodes with seeing pictures and faces when he closes his eyes. Exam Narrative: AF 98.0 128/68 68 16 97% ra Gen - NARD HEENT -the oropharynx is clear. Palpable temporal pulses without bruits. Neck -decrease in the bulky carmen
--- NOTE | 2023-09-19 15:30 | WPDNEURCNPN ---
Assessment and Plan Assessment and plan (1) Right optic neuritis: Code(s): H46.9 - Unspecified optic neuritis Status: Acute (2) White matter disease, unspecified: Code(s): R90.82 - White matter disease, unspecified Status: Acute (3) Asthma: Code(s): J45.909 - Unspecified asthma, uncomplicated Status: Acute (4) Cellulitis of neck: Code(s): L03.221 - Cellulitis of neck Status: Acute Plan The patient is being treated for cellulitis on the right side of the neck. The white cell count fairly high at around 27,000. The finding of optic neuritis on the right side indeed would be of some concern since he does see dark hole in the right field of vision. However there is no significant afferent pupillary defect. I am unable to perform detailed fundus examination here. He has had eye examination within the past year has been told that he has some growth of small blood vessels frequently. There is a history of rheumatoid arthritis which can also lead to vasculitis in some cases. The finding on the MRI of the brain could also result from vasculitis or vascular disease. The possibility of multiple sclerosis may also be a consideration although given his age and stage this will be lesser of the likelihood. Would suggest to treat his infection 1st then in 2 months time he should have a detailed eye examination and follow-up with me to see if he will require a spinal tap and more detailed focus study of the retro-orbital area and brain and also MRI of the cervical and thoracic spine to look for demyelinating disease. He may also require an opinion from a neuro floor covering installer which I can arrange. Inflammatory reaction of the optic nerve on the same side from infection and the neck did come to mind but I am not sure about this as a different possibility however it would be relevant to follow it up as his infection improved. I discussed these possibilities with the patient and given him my phone number to call to see me in 2-3 months time after discharge. Consult date: 09/19/23 HPI: Montez Irene is a 63 year old male with history of a pain and swelling in the right side of the neck found to have cellulitis being treated for the same. White cell count still around 27,000. He had some strange symptoms according to the hospitalist's notes and they ordered an MRI of the brain to look into it which shows some white matter changes and evidence for some swelling around the right optic nerve. Patient states that he does have some visual difficulty with the right eye when he is looking at the window he sees a black hole in his right visual field as against the left side. 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 Other than that he denies any bladder or bowel changes. No weakness in upper lower limbs. He has been healthy and a worse than tobias. Does not smoke. He may drink 2 beers a day. He also history of bronchial asthma for which she uses inhaler. Usually he will have an eye examination once a year and has been found to have some excessive blood vessels probably for 18 in the eyes for which the eye doctors at taking care of or observing them. No history of previous stroke or myocardial infarction or any cardiac disease. Review of Systems Review of Systems: Patient still has some discomfort in the right side of the neck for which she is being treated at this time. All systems reviewed & are unremarkable except as noted in HPI and below PMFSH Past Medical History Medical History (Updated 09/19/23 @ 15:38 by Tacos Rollins MD) Asthma Hypertension Immunocompromised patient Rheumatoid arthritis Right optic neuritis White matter disease, unspecified Surgical History Surgical History History of bilateral knee arthroplasty (2016) Family History Family History (Reviewed
[2023-09-19 19:30] LABS: Cholesterol 138 mg/dL (0-200); HDL Direct 17 mg/dL; Triglycerides 135 mg/dL (<150)
[2023-09-19 19:34] LABS: Fibrinogen 695 mg/dl (215-510)
[2023-09-19 19:39] LABS: Vancomycin Trough 29.1 ug/mL (10.0-20.0)
[2023-09-19 19:41] LABS: LDL Cholesterol Direct 96 mg/dL
[2023-09-19 19:46] LABS: CRP 15.7 mg/dL (<1.0)
[2023-09-19 19:53] LABS: Vitamin D 25 Hydroxy 25.9 ng/mL
--- NOTE | 2023-09-19 19:54 | PHAR ---
VANCOMYCIN TROUGH LEVEL = 29.1 VANC PLACED ON HOLD & RANDOM LEVEL ORDERED FOR 1200 09/19. FUTURE DOSES PER FUTURE LEVELS.
--- NOTE | 2023-09-19 20:18 | PC.NURSE ---
Stopped patient's vancomycin early due to vancomycin trough level being high. Discussed with pharmacist prior to doing so. Charted accurate intake of vancomycin.
[2023-09-20] VITALS (7 sets, daily range): BP systolic 125–147; BP diastolic 69–86; PULSE 64–76; RESP 16–20; TEMP 36.3–37.2; O2SAT 97–99
--- NOTE | 2023-09-20 | ECHO_ITS ---
Patient Info Name: Montez Irene Age: 63 years : 1960 Gender: Male Ht: 75 in Wt: 235 lbs BSA: 2.39 m2 HR: 64 bpm BP: 140 / 76 mmHg Technical Quality: Fair Exam Date: 09/20/2023 10:59 AM Exam Location: Echo Lab Patient Status: Inpatient Admit Date: 09/17/2023 Staff Ordering Physician: Tacos Rollins MD Field Adjuster: Mary Diaz RDCS Attending Provider: Lilia Durant APRN Referring Physician: Ria MATHEW; Exam Type: CA echo dop bubble study w con Study Info Indications I69.90 - Unspecified sequelae of unspecified cerebrovascular disease Complete two-dimentional, color flow and Doppler transthoracic echocardiogram is performed with agitated saline and with contrast to opacify the left ventricle and to improve the delineation of the left ventricle endocardial borders. Contrast/Agitated Saline Contrast/Ag. Saline: Definity Amount: 2.00 ml IV Access Condition: patent with no signs of infiltration Contrast/Ag. Saline: Agitated Saline Amount: 14.00 ml IV Access Condition: patent with no signs of infiltration Summary 1. Definity contrast administered improved wall motion interpretation. 2. Left ventricular chamber dimension is normal. 3. Left ventricular systolic function is normal, estimated at 60-65%. 4. The left ventricular diastolic function is normal. 5. Left atrial chamber dimension is moderately enlarged. 6. Right atrial chamber dimension is moderately enlarged. 7. There is trace aortic valve regurgitation. 8. The mitral valve has moderately calcified annulus. 9. There is mild to moderate mitral valve regurgitation. 10. There is mild to moderate tricuspid valve regurgitation. 11. Mild pulmonary hypertension, estimated pulmonary arterial systolic pressure is 49 mmHg. 12. There is trace pulmonic regurgitation. Left Ventricle Definity contrast administered improved wall motion interpretation. Tissue doppler E/e' is not performed. Left ventricular chamber dimension is normal. Left ventricular systolic function is normal, estimated at 60-65%. The left ventricular diastolic function is normal. Right Ventricle Right ventricular systolic function is normal and with normal TAPSE 2.1 cm. Right ventricular chamber dimension is normal. Left Atria Left atrial chamber dimension is moderately enlarged. Right Atria Right atrial chamber dimension is moderately enlarged. Atrial Septum Agitated saline injection with and without valsalva maneuver opacified right side cardiac chambers without shunt to left side cardiac chambers. Intact interatrial septum visualized by 2D and agitated saline imaging. Aortic Valve The aortic valve is trileaflet. There is no aortic valve stenosis. There is trace aortic valve regurgitation. Pulmonic Valve There is trace pulmonic regurgitation. Mitral Valve The mitral valve has moderately calcified annulus. There is no mitral valve stenosis. There is mild to moderate mitral valve regurgitation. Tricuspid Valve There is mild to moderate tricuspid valve regurgitation. Mild pulmonary hypertension, estimated pulmonary arterial systolic pressure is 49 mmHg. Pericardium/Pleural There is no pericardial effusion. Inferior Vena Cava Normal inferior vena cava with >50% collapse upon inspiration consistent with normal right atrial pressure, 5 mmHg. Aorta The aortic root size at the sinus of Valsalva is normal. Left Ventricular Outflow Tract Name
[2023-09-20 06:24] LABS: Basophils Absolute Auto 0.1 K/mm3 (0.0-0.1); Basophils Percent Auto 0.4 % (0.2-1.2); Eosinophils Absolute Auto 0.4 K/mm3 (0-0.3); Eosinophils Percent Auto 1.8 % (0-4.4); Hematocrit 33.1 % (42.0-52.0); Hemoglobin 11.9 g/dL (14.0-18.0); Immature Granulocyte Absolute 0.12 K/mm3 (0.00-0.031); Immature Granulocyte Percent A 0.6 % (0-0.5); Lymphocytes Absolute Auto 1.87 K/mm3 (0.9-3.2); Lymphocytes Percent Auto 9.7 % (18.3-44.2); Mean Corpuscular Hemoglobin 34.7 pg (26-34); Mean Corpuscular Volume 96.5 fl (80-100); Mean Platelet Volume 11.4 fl (7.4-10.4); Monocytes Absolute Auto 1.1 K/mm3 (0.1-0.6); Monocytes Percent Auto 5.7 % (2.6-8.5); Neutrophils Absolute Auto 15.8 K/mm3 (1.3-6.7); Neutrophils Percent Auto 81.8 % (45.5-73.1); Platelet Count Result 257 k/mm3 (150-375); Red Blood Count 3.43 M/mm3 (4.6-6.20); Red Cell Distribution Width 12.1 % (11.5-14.5); White Blood Count 19.3 K/mm3 (4.5-10.0)
[2023-09-20 06:38] LABS: Alanine Aminotransferase 33 U/L (6-50); Albumin Level 3.1 g/dL (3.5-5.1); Alkaline Phosphatase 81 U/L (38-126); Anion Gap 7 mmol/L (4-12); Aspartate Amino Transferase 33 U/L (17-59); Bilirubin,Total 0.6 mg/dL (0.2-1.3); Blood Urea Nitrogen 11 mg/dL (9-20); Carbon Dioxide 26 mmol/L (22-30); Chloride 100 mmol/L (98-107); Estimated CRCL calculation 128 ml/min; Estimated Glomerular Filt Rate > 60; Glucose 104 mg/dL (65-110); Magnesium 1.9 mg/dL (1.6-2.3); Sodium 133 mmol/L (137-145)
[2023-09-20 06:50] LABS: CRP 12.1 mg/dL (<1.0)
[2023-09-20 06:51] LABS: Procalcitonin 1.2 ng/mL
[2023-09-20] MEDS: MAGNESIUM SULF 2 GM/WATER 50ML 2 GM/50 ML BAG IVPB (08:13)
[2023-09-20] MEDS: CHOLECALCIFEROL 400 UNITS TABLET (VIT D) PO (09:17)
[2023-09-20] MEDS: THIAMINE HCL 100 MG TABLET PO (09:17)
[2023-09-20] MEDS: POTASSIUM CHLORIDE 20 MEQ ER TABLET 40 MEQ PO (09:17)
[2023-09-20] MEDS: CYANOCOBALAMIN 1,000 MCG TABLET 1000 MCG PO (09:17)
[2023-09-20] MEDS: LOSARTAN POTASSIUM 25 MG TABLET PO (09:18)
[2023-09-20] MEDS: ENOXAPARIN 40 MG/0.4 ML SYRINGE SUB-Q (09:18)
[2023-09-20] MEDS: ACETAMINOPHEN 325 MG TABLET 650 MG PO (09:24)
--- NOTE | 2023-09-20 11:11 | PM.IMPN ---
Progress Note: A&P Assessment and Plan (1) Sepsis: Qualifiers: Sepsis acute organ dysfunction status: unspecified Sepsis type: sepsis due to unspecified organism Qualified Code(s): A41.9 - Sepsis, unspecified organism Code(s): A41.9 - Sepsis, unspecified organism Status: Acute Assessment and Plan: Patient developed sore throat that progressed to swelling and erythema to right neck without airway compromise. Sepsis present on admission with fever, leukocytosis, subjective chills and tachycardia. CT of soft tissue neck shows fat stranding in the right lower neck with swelling with subcutaneous edema, most likely inflammatory. Cultures obtained and started on cefepime and vancomycin WBC 21K-->31K -->27K --> 27K --> 19K Monospot negative. Group A Strept PCR negative, Influenza/RSV/COVID PCR negative. MRSA note detected. BCx 09/15 growing Group A strept. Repeat BCx 09/16 NGTD Echo ordered. Carotid doppler ordered. Changed Cefepime to Rocephin 09/18. WBC better. Okay to stop Vanco now. Follow. (2) Right optic neuritis: Code(s): H46.9 - Unspecified optic neuritis Status: Acute Assessment and Plan: Patient having visual changes. MRI brain showin. Multiple T2 and FLAIR hyperintense signal areas which is suggestive of deep white matter ischemic changes versus white matter disease. 2. T2 bright signal in the right optic nerve with postcontrast enhancement 3. Pansinusitis. Optic neuritis usually causes pain but patient only conplains of visual changes. Could be related to his RA or other autoimmune process. Consider related to his current inflammatory process since symptoms better as his clinical condition improves. B12 and folate levels okay. Ischemic neuropathy? No steroids since has ongoing infection. Neurology consult noted and appreciated. (3) White matter disease, unspecified: Code(s): R90.82 - White matter disease, unspecified Status: Acute Assessment and Plan: As above. Could be part of the process associated with his optic nerve findings or related to chronic cerebral white matter disease. Neurology consulted (4) Cellulitis of neck: Code(s): L03.221 - Cellulitis of neck Status: Acute Assessment and Plan: As above (5) Immunocompromised patient: Code(s): D84.9 - Immunodeficiency, unspecified Status: Acute Assessment and Plan: Patient with RA on Humira. Humira on hold. (6) Hypokalemia: Code(s): E87.6 - Hypokalemia Status: Acute Assessment and Plan: Potassium low and was replaced. Chlorthalidone held Potassium 3.0 this morning and replaced again. Mag 2.0 Continue to replace. (7) Hypertension: Code(s): I10 - Essential (primary) hypertension Status: Acute Assessment and Plan: Patient's blood pressure was reviewed on 09/19 Blood pressure remains well controlled. Holding chlorthalidone as we correct potassium (8) Asthma: Code(s): J45.909 - Unspecified asthma, uncomplicated Status: Acute Assessment and Plan: Stable . no wheezing. Holding Advair Plan Brief run of NSVT - No recurrence. [place] related to low potassium. Echo ordered. Replace electrolytes. Okay to stop tele DVT prophylaxis - Lovenox Code status - full Disposition: Home when medically ready Subjective Date/time seen: 09/20/23 11:11 Interval history: 63yo male with HTN, asthma and RA on Humira who presented to the emergency department for evaluation of swelling in the right neck. Walking to the BR. No CP or SOB. Still with mild headache better with Tylenol. Vision changes improving. No longer seeing faces or pictures when he closes his eyes. Exam Narrative: AF 97.3 125/86 69 16 97% ra Gen - NARD Neck -decrease in the bulky adenopathy in the right supraclavicular area and less tender Chest - CTA bilaterally, nml RR CV - RRR
[2023-09-20] MEDS: PERFLUTREN LIPID MICROSPHERES 1.5 ML VIAL DILUTED TO 10 ML TOTAL VOLUME IV PUSH (11:33)
[2023-09-20] MEDS: cefTRIAXone 2 GM/NS 100 ML 2 GM/100 ML BAG IVPB (14:00)
[2023-09-21] VITALS (7 sets, daily range): BP systolic 127–154; BP diastolic 76–83; PULSE 65–74; RESP 16–18; TEMP 36.7–37.8; O2SAT 95–98
[2023-09-21 04:58] LABS: Basophils Absolute Auto 0.1 K/mm3 (0.0-0.1); Basophils Percent Auto 0.4 % (0.2-1.2); Eosinophils Absolute Auto 0.3 K/mm3 (0-0.3); Eosinophils Percent Auto 1.7 % (0-4.4); Hematocrit 36.4 % (42.0-52.0); Hemoglobin 12.3 g/dL (14.0-18.0); Immature Granulocyte Absolute 0.14 K/mm3 (0.00-0.031); Immature Granulocyte Percent A 0.8 % (0-0.5); Lymphocytes Absolute Auto 2.09 K/mm3 (0.9-3.2); Lymphocytes Percent Auto 12.6 % (18.3-44.2); Mean Corpuscular HGB Conc 33.8 g/dl (32-36); Mean Corpuscular Hemoglobin 34.4 pg (26-34); Mean Corpuscular Volume 101.7 fl (80-100); Mean Platelet Volume 11.2 fl (7.4-10.4); Monocytes Absolute Auto 1.2 K/mm3 (0.1-0.6); Monocytes Percent Auto 7.2 % (2.6-8.5); Neutrophils Absolute Auto 12.8 K/mm3 (1.3-6.7); Neutrophils Percent Auto 77.3 % (45.5-73.1); Platelet Count Result 278 k/mm3 (150-375); Red Blood Count 3.58 M/mm3 (4.6-6.20); White Blood Count 16.6 K/mm3 (4.5-10.0)
[2023-09-21 05:10] LABS: Alanine Aminotransferase 34 U/L (6-50); Albumin Level 3.3 g/dL (3.5-5.1); Alkaline Phosphatase 79 U/L (38-126); Anion Gap 9 mmol/L (4-12); Aspartate Amino Transferase 36 U/L (17-59); Bilirubin,Total 0.7 mg/dL (0.2-1.3); Blood Urea Nitrogen 13 mg/dL (9-20); Carbon Dioxide 26 mmol/L (22-30); Chloride 98 mmol/L (98-107); Estimated CRCL calculation 128 ml/min; Estimated Glomerular Filt Rate > 60; Glucose 114 mg/dL (65-110); Magnesium 2.1 mg/dL (1.6-2.3); Potassium 3.1 mmol/L (3.4-5.0); Sodium 133 mmol/L (137-145)
[2023-09-21] MEDS: ACETAMINOPHEN 325 MG TABLET 650 MG PO ×2 (08:10→18:05)
[2023-09-21] MEDS: CYANOCOBALAMIN 1,000 MCG TABLET 1000 MCG PO (08:10)
[2023-09-21] MEDS: THIAMINE HCL 100 MG TABLET PO (08:10)
[2023-09-21] MEDS: CHOLECALCIFEROL 400 UNITS TABLET (VIT D) PO (08:10)
[2023-09-21] MEDS: LOSARTAN POTASSIUM 25 MG TABLET PO (08:10)
[2023-09-21] MEDS: ENOXAPARIN 40 MG/0.4 ML SYRINGE SUB-Q (08:20)
[2023-09-21 10:04] LABS: EVB DNA,QN PCR 3.45; Epstein Barr Virus PCR 2803 copies/mL; Source WHOLE BLOOD
[2023-09-21] MEDS: cefTRIAXone 2 GM/NS 100 ML 2 GM/100 ML BAG IVPB (12:21)
--- NOTE | 2023-09-21 14:05 | PM.IMPN ---
Progress Note: A&P Assessment and Plan (1) Sepsis: Qualifiers: Sepsis acute organ dysfunction status: unspecified Sepsis type: sepsis due to unspecified organism Qualified Code(s): A41.9 - Sepsis, unspecified organism Code(s): A41.9 - Sepsis, unspecified organism Status: Acute Assessment and Plan: Patient developed sore throat that progressed to swelling and erythema to right neck without airway compromise. Sepsis present on admission with fever, leukocytosis, subjective chills and tachycardia. CT of soft tissue neck shows fat stranding in the right lower neck with swelling with subcutaneous edema, most likely inflammatory. Cultures obtained and started on cefepime and vancomycin WBC 21K-->31K -->27K --> 27K --> 19K --> 16K Monospot negative. Group A Strept PCR negative, Influenza/RSV/COVID PCR negative. MRSA note detected. BCx 09/15 growing Group A strept. Repeat BCx 09/16 NGTD Echo showing EF 60% with moderate valvular disease and mild pHTN. Carotid doppler showing <50% in the bilateral ICA. EBV DNA 2800 with 3.5 log copies/mL Changed Cefepime to Rocephin 09/18. Vanco stopped 09/19 WBC continuing to trend down. Clinically better except for erythema tracking caudally. Dependent erthema? Discussed case with ID at [facility] [place] (Dr Corado). The EBV could be reactive from the current infection or possibly chronic given his immune state. If chronic, then he is at risk for lymphoproliferative disorders. Also unclear why erythema spreading as he improves and inflammatory markers improve. Check CT ch/A/P. Follow. (2) Right optic neuritis: Code(s): H46.9 - Unspecified optic neuritis Status: Acute Assessment and Plan: Patient having visual changes. MRI brain showin. Multiple T2 and FLAIR hyperintense signal areas which is suggestive of deep white matter ischemic changes versus white matter disease. 2. T2 bright signal in the right optic nerve with postcontrast enhancement 3. Pansinusitis. Optic neuritis usually causes pain but patient only conplains of visual changes. Could be related to his RA or other autoimmune process. Suspect related to his current inflammatory process since symptoms have resolved as his clinical condition improved. B12 and folate levels okay. Ischemic neuropathy? No steroids since has ongoing infection. Neurology consult noted and appreciated. (3) White matter disease, unspecified: Code(s): R90.82 - White matter disease, unspecified Status: Acute Assessment and Plan: As above. Could be part of the process associated with his optic nerve findings or related to chronic cerebral white matter disease. Neurology consulted (4) Cellulitis of neck: Code(s): L03.221 - Cellulitis of neck Status: Acute Assessment and Plan: As above (5) Immunocompromised patient: Code(s): D84.9 - Immunodeficiency, unspecified Status: Acute Assessment and Plan: Patient with RA on Humira. Humira on hold. (6) Hypokalemia: Code(s): E87.6 - Hypokalemia Status: Acute Assessment and Plan: Potassium low and was replaced. Chlorthalidone held Potassium 3.1 this morning and replaced again. Mag 2.1 Continue to replace. (7) Hypertension: Code(s): I10 - Essential (primary) hypertension Status: Acute Assessment and Plan: Patient's blood pressure was reviewed on 09/20 Blood pressure remains reasonably well controlled. Holding chlorthalidone as we correct potassium (8) Asthma: Code(s): J45.909 - Unspecified asthma, uncomplicated Status: Acute Assessment and Plan: Stable . no wheezing. Holding Advair Plan Brief run of NSVT - No recurrence. [place] related to low potassium. Echo as above. Replace electrolytes. DVT prophylaxis - Lovenox Code status - full Disposition: Home when medically ready Subjective Date/time seen: 09/21/23 14:0
[2023-09-21] MEDS: SODIUM CHLORIDE 0.9% IV 1,000 ML 100 ML IV CONT (16:53)
[2023-09-21 19:30] LABS: Add Urine Microscopic? YES; Appearance Urine Clear (Clear); Bacteria Urine None Seen /hpf; Bilirubin Urine Negative (Negative); Blood Urine Trace (Negative); Color Urine Yellow (Yellow); Glucose Urine UA Negative (Negative); Ketones Urine Negative (Negative); Leukocyte Esterase Ur Negative LEU/UL (Negative); Nitrate Urine Negative (Negative); Non Pathogenic Casts 0-2; Protein Urine 1+ mg/dL (Negative); Specific Grav Ur > 1.045 (1.001-1.035); Squamous Epithelial Cell Urine None Seen /hpf (Few); WBC Urine 0-5 /hpf (0-3); pH Urine 7.5 (5.0-9.0)
[2023-09-22] VITALS (8 sets, daily range): BP systolic 120–168; BP diastolic 65–104; PULSE 67–88; RESP 16–20; TEMP 36.5–37.6; O2SAT 90–98
[2023-09-22 05:10] LABS: Basophils Absolute Auto 0.1 K/mm3 (0.0-0.1); Basophils Percent Auto 0.5 % (0.2-1.2); Eosinophils Absolute Auto 0.2 K/mm3 (0-0.3); Eosinophils Percent Auto 1.8 % (0-4.4); Hematocrit 34.4 % (42.0-52.0); Immature Granulocyte Absolute 0.13 K/mm3 (0.00-0.031); Lymphocytes Absolute Auto 2.01 K/mm3 (0.9-3.2); Lymphocytes Percent Auto 15.6 % (18.3-44.2); Mean Corpuscular HGB Conc 34.9 g/dl (32-36); Mean Corpuscular Hemoglobin 34.2 pg (26-34); Monocytes Absolute Auto 1.3 K/mm3 (0.1-0.6); Monocytes Percent Auto 9.9 % (2.6-8.5); Neutrophils Absolute Auto 9.2 K/mm3 (1.3-6.7); Neutrophils Percent Auto 71.2 % (45.5-73.1); Platelet Count Result 310 k/mm3 (150-375); Red Blood Count 3.51 M/mm3 (4.6-6.20); Red Cell Distribution Width 12.1 % (11.5-14.5); White Blood Count 12.9 K/mm3 (4.5-10.0)
[2023-09-22 05:35] LABS: Alanine Aminotransferase 31 U/L (6-50); Albumin Level 3.2 g/dL (3.5-5.1); Alkaline Phosphatase 76 U/L (38-126); Anion Gap 7 mmol/L (4-12); Aspartate Amino Transferase 31 U/L (17-59); Bilirubin,Total 0.6 mg/dL (0.2-1.3); Blood Urea Nitrogen 12 mg/dL (9-20); Calcium 8.2 mg/dL (8.4-10.2); Carbon Dioxide 26 mmol/L (22-30); Chloride 102 mmol/L (98-107); Estimated CRCL calculation 111 ml/min; Estimated Glomerular Filt Rate > 60; Glucose 116 mg/dL (65-110); Sodium 135 mmol/L (137-145)
[2023-09-22] MEDS: CYANOCOBALAMIN 1,000 MCG TABLET 1000 MCG PO (09:43)
[2023-09-22] MEDS: ENOXAPARIN 40 MG/0.4 ML SYRINGE SUB-Q (09:43)
[2023-09-22] MEDS: LOSARTAN POTASSIUM 25 MG TABLET PO (09:43)
[2023-09-22] MEDS: THIAMINE HCL 100 MG TABLET PO (09:43)
[2023-09-22] MEDS: CHOLECALCIFEROL 400 UNITS TABLET (VIT D) PO (09:43)
[2023-09-22] MEDS: cefTRIAXone 2 GM/NS 100 ML 2 GM/100 ML BAG IVPB (12:56)
--- NOTE | 2023-09-22 16:16 | PM.IMPN ---
Progress Note: A&P Assessment and Plan (1) Sepsis: Qualifiers: Sepsis acute organ dysfunction status: unspecified Sepsis type: sepsis due to unspecified organism Qualified Code(s): A41.9 - Sepsis, unspecified organism Code(s): A41.9 - Sepsis, unspecified organism Status: Acute Assessment and Plan: Patient developed sore throat that progressed to swelling and erythema to right neck without airway compromise. Sepsis present on admission with fever, leukocytosis, subjective chills and tachycardia. CT of soft tissue neck shows fat stranding in the right lower neck with swelling with subcutaneous edema, most likely inflammatory. Cultures obtained and started on cefepime and vancomycin. WBC 21K-->31K -->27K --> 27K --> 19K --> 16K -->13K Monospot negative. Group A Strept PCR negative,. Influenza/RSV/COVID PCR negative. MRSA not detected. BCx 09/15 growing Group A strept. Repeat BCx 09/16 NGTD Surface Echo showing EF 60% with moderate valvular disease and mild pHTN. Carotid doppler showing <50% in the bilateral ICA. EBV DNA 2800 with 3.5 log copies/mL Changed Cefepime to Rocephin 09/18. Vanco stopped 09/19 WBC and CRP continuing to trend down. Clinically better and erythema fading. Suspect erythema is dependent and stopping at the waist band Discussed case with ID at [place] (Dr Corado) on 09/20. The EBV could be reactive from the current infection or possibly chronic given his immune state. If chronic, then he is at risk for lymphoproliferative disorders (need to make sure his adenopathy resolves). Fever again yesterday. On DVT prophylaxis. LE venous dopplers negative for DVT. CT Ch/A/P showing bilateral dependent atelectasis, greater in the right lung. Infection is not excluded. Trace left and small right pleural effusions. Right lower neck subcutaneous stranding, with paratracheal lymphadenopathy, similar to the prior examination. Mild perinephric stranding and periureteral stranding, which could represent ascending infection. UA showing SG 1.045, 1+ protein and 6-10 RBC. Renal fxn normal so doubt urinary issue. Fever associated with atelectasis? Incentive spirometry ordered and patient is compliant. Order CPAP at night. Some cough with swallowing so will have Speech evaluate the patient. Check doppler RUE. BCx repeated Follow. (2) Right optic neuritis: Code(s): H46.9 - Unspecified optic neuritis Status: Acute Assessment and Plan: Patient having visual changes. MRI brain showin. Multiple T2 and FLAIR hyperintense signal areas which is suggestive of deep white matter ischemic changes versus white matter disease. 2. T2 bright signal in the right optic nerve with postcontrast enhancement 3. Pansinusitis. Optic neuritis usually causes pain but patient only conplains of visual changes. Could be related to his RA or other autoimmune process. Suspect related to his current inflammatory process since symptoms have resolved as his clinical condition improved. B12 and folate levels okay. Ischemic neuropathy? No steroids since has ongoing infection. Neurology consult noted and appreciated. Coagulopathy workup ordered. Okay to stop B12 and thiamine. (3) White matter disease, unspecified: Code(s): R90.82 - White matter disease, unspecified Status: Acute Assessment and Plan: As above. Could be part of the process associated with his optic nerve findings or related to chronic cerebral white matter disease. Neurology consulted (4) Cellulitis of neck: Code(s): L03.221 - Cellulitis of neck Status: Acute Assessment and Plan: As above (5) Immunocompromised patient: Code(s): D84.9 - Immunodeficiency, unspecified Status: Acute Assessment and Plan: Patient with RA on Humira. Humira on hold. (6) Hypokalemia: Code(s): E87.6 - Hypokalemia Status: Acute Assessment and Plan: Potassium low and was replaced. Chlorthalid
--- NOTE | 2023-09-22 18:59 | ECG_ITS ---
Test Date: 2023-09-22 19:25:10 Measurements Intervals [place] Rate: 66 P: 37 KS: 154 QRS: -16 QRSD: 101 T: -1 QT: 432 QTc: 455 Interpretive Statements SINUS RHYTHM POSSIBLE LEFT ATRIAL ENLARGEMENT LEFT VENTRICULAR HYPERTROPHY WITH ST-T CHANGE INFERIOR INFARCT, AGE INDETERMINATE ABNORMAL ECG Compared to ECG 09/19/2023 11:14:56 No significant changes Electronically Signed On 09-22-2023 20:46:59 CDT by Magdy Robles D.O.
[2023-09-22] MEDS: POTASSIUM CHLORIDE 20 MEQ ER TABLET 40 MEQ PO (19:59)
[2023-09-23] VITALS (7 sets, daily range): BP systolic 134–178; BP diastolic 76–92; PULSE 65–87; RESP 18–20; TEMP 36.4–36.6; O2SAT 95–100
[2023-09-23 04:14] LABS: Methylmalonic Acid 114 nmol/L (69-390)
[2023-09-23 04:55] LABS: Basophils Percent Auto 0.4 % (0.2-1.2); Eosinophils Absolute Auto 0.3 K/mm3 (0-0.3); Eosinophils Percent Auto 2.5 % (0-4.4); Hematocrit 35.3 % (42.0-52.0); Hemoglobin 12.1 g/dL (14.0-18.0); Immature Granulocyte Absolute 0.08 K/mm3 (0.00-0.031); Immature Granulocyte Percent A 0.8 % (0-0.5); Lymphocytes Percent Auto 16.9 % (18.3-44.2); Mean Corpuscular HGB Conc 34.3 g/dl (32-36); Mean Corpuscular Hemoglobin 33.9 pg (26-34); Mean Corpuscular Volume 98.9 fl (80-100); Monocytes Absolute Auto 1.3 K/mm3 (0.1-0.6); Monocytes Percent Auto 11.9 % (2.6-8.5); Neutrophils Absolute Auto 7.2 K/mm3 (1.3-6.7); Neutrophils Percent Auto 67.5 % (45.5-73.1); Platelet Count Result 316 k/mm3 (150-375); Red Blood Count 3.57 M/mm3 (4.6-6.20); Red Cell Distribution Width 12.3 % (11.5-14.5); White Blood Count 10.7 K/mm3 (4.5-10.0)
[2023-09-23 05:02] LABS: Alanine Aminotransferase 31 U/L (6-50); Albumin Level 3.4 g/dL (3.5-5.1); Alkaline Phosphatase 70 U/L (38-126); Anion Gap 9 mmol/L (4-12); Aspartate Amino Transferase 27 U/L (17-59); Bilirubin,Total 0.6 mg/dL (0.2-1.3); Blood Urea Nitrogen 13 mg/dL (9-20); Calcium 8.5 mg/dL (8.4-10.2); Carbon Dioxide 26 mmol/L (22-30); Chloride 102 mmol/L (98-107); Estimated CRCL calculation 98 ml/min; Estimated Glomerular Filt Rate > 60; Glucose 122 mg/dL (65-110); Magnesium 2.1 mg/dL (1.6-2.3); Potassium 3.4 mmol/L (3.4-5.0); Sodium 137 mmol/L (137-145)
[2023-09-23] MEDS: CHOLECALCIFEROL 400 UNITS TABLET (VIT D) PO (09:05)
[2023-09-23] MEDS: POTASSIUM CHLORIDE 20 MEQ ER TABLET 40 MEQ PO (09:05)
[2023-09-23] MEDS: LOSARTAN POTASSIUM 25 MG TABLET PO ×2 (09:05→16:31)
[2023-09-23] MEDS: ENOXAPARIN 40 MG/0.4 ML SYRINGE SUB-Q (09:09)
--- NOTE | 2023-09-23 09:14 | WPDNEUROPN ---
Progress Note: A&P Assessment and Plan (1) White matter disease, unspecified: Code(s): R90.82 - White matter disease, unspecified Status: Acute (2) Right optic neuritis: Code(s): H46.9 - Unspecified optic neuritis Status: Acute (3) Immunocompromised patient: Code(s): D84.9 - Immunodeficiency, unspecified Status: Acute (4) Rheumatoid arthritis: Code(s): M06.9 - Rheumatoid arthritis, unspecified Status: Acute Plan Mr. Irene is a 63 year old male with a history of HTN, asthma, RA on Humira who presented with R neck swelling, concerning for infectious lymphadenitis. MRI brain obtained due to vision concerns which showed white matter lesions in the subcortical region as well as increased signal/contrast enhancement in the R optic nerve. Considering infectious etiology given same side as infection vs inflammatory (h/o RA) vs demyelinating (MS/NMO). We are not administrating high dose steroids currently due to patient's current infection. His vision symptoms have resolved. He denied any vision loss or double vision. - I would recommend obtaining MRI cervical spine and thoracic spine with and without contrast to see if there is any evidence of demyelination in the spine - Agree with outpatient follow-up with Dr. Rollins -- patient already given clinic number to call Subjective Date/time seen: 09/23/23 09:14 Interval history: Mr. Irene is a 63 year old male with a history of HTN, asthma, RA on Humira who presented with R neck swelling in the setting of sinus congestion and cough. His initial work-up was significant for WBC of 20.7. Soft tissue neck CT showed fat stranding in the right lower neck with swelling and subcutaneous edema, likely inflammatory, and enlarged lymph nodes in the pair of pharyngeal and posterior triangle areas. He was started on IV antibiotics and subsequently admitted. Blood cultures from admission growing GAS. He is on vancomycin and Rocephin currently. During admission he noted visual changes. MRI brain was done with and without contrast which showed T2 hyperintensities in the deep white matter, T2 hyperintensity involving the R optic nerve with post-contrast enhancement. Steroids have been held due to current infection. Dr. Fonseca discussed case with [facility] ID who brought up that MRI findings could be caused by embolism from thrombophlebitis. When asked about what his visual symptoms were, he reports that about a week ago, whenever he would close his eyes, he would see images like a 'movie' and when he would open his eyes it would go away. He reports that it involved both eyes. He denies any focal vision loss, double vision, dysphagia, dysarthria, focal weakness/numbness, bowel/bladder incontinence. He is no longer having the vision symptoms. Review of Systems Review of Systems: All systems reviewed & are unremarkable except as noted in HPI and below Exam Const: General: comfortable, no acute distress and well nourished Nutritional Appearance: well nourished HENMT: Head: normocephalic and atraumatic Ears: hearing grossly normal bilaterally and external ears normal Face/Nose/Sinus: Normal external nose present and normal facial exam Face and sinus: normal facial exam Mouth: Yes Normal oral and palatal mucosa present Eyes: General: appearance normal, both eyes and all related structures Eyelids: eyelids normal Conjunctivae: conjunctivae normal Pupils: Equal, round and reactive pupils present EOM: EOMs intact bilaterally and No Nystagmus present Resp: Effort & Inspection: normal respiratory effort Skin: General skin exam: normal color and no rashes or lesions noted Neuro: Cranial nerves: Yes CN's II-XII intact bilaterally, Yes Equal, round and reactive pupils present, Yes Bilaterally intact EOM present, Yes Nystagmus not present, Yes Normal facial strength present, Yes facial symmetry, Yes Midline tongue present, Yes Symmetric palate elevation present, Yes Normal he
--- NOTE | 2023-09-23 09:40 | PCSTNOTE ---
Please refer to the Bedside Swallow Evaluation in the EMR. Please note, silent aspiration cannot be ruled out at bedside. The above pleasant and cooperative pt was seen for a swallow evaluation at bedside. The pt was positioned upright in a chair. He was alert & oriented and able to follow commands. He is currently on a regular diet and denies dysphagia. Oral mucosa is normal; natural dentition is in good condition; Informal oral peripheral exam revealed lingual and labial structures to be normal. He was able to dry swallow on command and exhibited a strong cough and clear vocal quality. He was tested with uncontrolled amounts of applesauce, pudding, cracker and thin liquids. The oral stages appeared WNL. No oral residue, leakage, or pocketing was noted. During the pharyngeal stage, swallow reflex appeared prompt & laryngeal elevation adequate. No overt s/s of aspiration were exhibited; however, silent aspiration cannot be ruled at bedside. General impression is normal swallow ability. Recommendation: Continue current diet. Thank you for this referral.
[2023-09-23] MEDS: LINEZOLID 600 MG TABLET PO ×2 (11:25→19:57)
--- NOTE | 2023-09-23 11:52 | IVDEFINITY ---
Prior to administration of IV Definity the patient was educated on the risks and benefits of the imaging enhancing agent including potential adverse side effects. The patient verbalized understanding. Allergies were verified. No exclusion criteria were identified and at least one of the following inclusion criteria were met: 1) physician request, 2) patient technically difficult to image (per the [place] [employer] guidelines of two or more segments not discernable within the apical view), or 3) questionable left ventricular function. ?
[2023-09-23 15:08] LABS: Thrombin Clotting Time 16 sec (13-19)
[2023-09-23 15:18] LABS: Hexagonal Phase Confirm POSITIVE (NEGATIVE); Lupus dRVVT Screen 39 sec (< OR = 45); PTT-LA Screen 45 sec (< OR = 40)
--- NOTE | 2023-09-23 15:21 | PM.IMPN ---
Progress Note: A&P Assessment and Plan (1) Sepsis: Qualifiers: Sepsis acute organ dysfunction status: unspecified Sepsis type: sepsis due to unspecified organism Qualified Code(s): A41.9 - Sepsis, unspecified organism Code(s): A41.9 - Sepsis, unspecified organism Status: Acute Assessment and Plan: Patient developed sore throat that progressed to swelling and erythema to right neck without airway compromise. Sepsis present on admission with fever, leukocytosis, subjective chills and tachycardia. CT of soft tissue neck shows fat stranding in the right lower neck with swelling with subcutaneous edema, most likely inflammatory. Cultures obtained and started on cefepime and vancomycin. WBC 21K-->31K -->27K --> 27K --> 19K --> 16K -->13K Monospot negative. Group A Strept PCR negative,. Influenza/RSV/COVID PCR negative. MRSA not detected. BCx 09/15 growing Group A strept. Repeat BCx 09/16 NGTD Surface Echo showing EF 60% with moderate valvular disease and mild pHTN. Carotid doppler showing <50% in the bilateral ICA. EBV DNA 2800 with 3.5 log copies/mL Changed Cefepime to Rocephin 09/18. Vanco stopped 09/19 WBC and CRP continuing to trend down. Clinically better and erythema fading. Suspect erythema is dependent and stopping at the waist band Discussed case with ID at [place] (Dr Corado) on 09/20. The EBV could be reactive from the current infection or possibly chronic given his immune state. If chronic, then he is at risk for lymphoproliferative disorders (need to make sure his adenopathy resolves). Fever again yesterday. On DVT prophylaxis. LE venous dopplers negative for DVT. CT Ch/A/P showing bilateral dependent atelectasis, greater in the right lung. Infection is not excluded. Trace left and small right pleural effusions. Right lower neck subcutaneous stranding, with paratracheal lymphadenopathy, similar to the prior examination. Mild perinephric stranding and periureteral stranding, which could represent ascending infection. UA showing SG 1.045, 1+ protein and 6-10 RBC. Renal fxn normal so doubt urinary issue. Fever associated with atelectasis? Incentive spirometry ordered and patient is compliant. CPAP ordered and tolerating. Some cough with swallowing but normal Speech evaluation. Doppler RUE pending BCx repeated and are NGTD MRI order of cervical and lumbar region No recurrent fever. Follow. Discussed with [facility] ID who recommended abx adjustment which was done (2) Right optic neuritis: Code(s): H46.9 - Unspecified optic neuritis Status: Acute Assessment and Plan: Patient having visual changes. MRI brain showin. Multiple T2 and FLAIR hyperintense signal areas which is suggestive of deep white matter ischemic changes versus white matter disease. 2. T2 bright signal in the right optic nerve with postcontrast enhancement 3. Pansinusitis. Optic neuritis usually causes pain but patient only conplains of visual changes. Could be related to his RA or other autoimmune process. Suspect related to his current inflammatory process since symptoms have resolved as his clinical condition improved. B12 and folate levels okay. Ischemic neuropathy? No steroids since has ongoing infection. Neurology consult noted and appreciated. Coagulopathy workup ordered with positive lupus anticoagulant. Will discuss with neurology (3) White matter disease, unspecified: Code(s): R90.82 - White matter disease, unspecified Status: Acute Assessment and Plan: As above. Could be part of the process associated with his optic nerve findings or related to chronic cerebral white matter disease. Neurology consulted (4) Cellulitis of neck: Code(s): L03.221 - Cellulitis of neck Status: Acute Assessment and Plan: As above (5) Immunocompromised patient: Code(s): D84.9 - Immunodeficiency, unspecified Status: Acute Assessment and Plan: Patient with RA on Humira.
[2023-09-24] VITALS (7 sets, daily range): BP systolic 141–174; BP diastolic 81–87; PULSE 62–72; RESP 18–20; TEMP 36.4–37.3; O2SAT 96–99
[2023-09-24 04:47] LABS: Basophils Absolute Auto 0.1 K/mm3 (0.0-0.1); Basophils Percent Auto 0.6 % (0.2-1.2); Eosinophils Absolute Auto 0.3 K/mm3 (0-0.3); Eosinophils Percent Auto 3.1 % (0-4.4); Hematocrit 35.9 % (42.0-52.0); Hemoglobin 12.4 g/dL (14.0-18.0); Immature Granulocyte Absolute 0.08 K/mm3 (0.00-0.031); Immature Granulocyte Percent A 0.9 % (0-0.5); Lymphocytes Absolute Auto 1.64 K/mm3 (0.9-3.2); Lymphocytes Percent Auto 18.4 % (18.3-44.2); Mean Corpuscular HGB Conc 34.5 g/dl (32-36); Mean Corpuscular Hemoglobin 34.3 pg (26-34); Mean Corpuscular Volume 99.4 fl (80-100); Mean Platelet Volume 10.8 fl (7.4-10.4); Monocytes Absolute Auto 0.9 K/mm3 (0.1-0.6); Monocytes Percent Auto 10.6 % (2.6-8.5); Neutrophils Absolute Auto 5.9 K/mm3 (1.3-6.7); Neutrophils Percent Auto 66.4 % (45.5-73.1); Platelet Count Result 369 k/mm3 (150-375); Red Blood Count 3.61 M/mm3 (4.6-6.20); Red Cell Distribution Width 12.3 % (11.5-14.5); White Blood Count 8.9 K/mm3 (4.5-10.0)
[2023-09-24 05:00] LABS: Alanine Aminotransferase 27 U/L (6-50); Albumin Level 3.3 g/dL (3.5-5.1); Alkaline Phosphatase 64 U/L (38-126); Anion Gap 9 mmol/L (4-12); Aspartate Amino Transferase 26 U/L (17-59); Bilirubin,Total 0.5 mg/dL (0.2-1.3); Blood Urea Nitrogen 13 mg/dL (9-20); Calcium 8.4 mg/dL (8.4-10.2); Carbon Dioxide 23 mmol/L (22-30); Chloride 105 mmol/L (98-107); Estimated CRCL calculation 88 ml/min; Estimated Glomerular Filt Rate > 60; Glucose 136 mg/dL (65-110); Magnesium 2.1 mg/dL (1.6-2.3); Potassium 3.7 mmol/L (3.4-5.0); Sodium 137 mmol/L (137-145)
[2023-09-24] MEDS: LINEZOLID 600 MG TABLET PO ×2 (08:25→20:33)
[2023-09-24] MEDS: LOSARTAN POTASSIUM 50 MG TABLET PO (08:25)
[2023-09-24] MEDS: ENOXAPARIN 40 MG/0.4 ML SYRINGE SUB-Q (08:26)
[2023-09-24] MEDS: CHOLECALCIFEROL 400 UNITS TABLET (VIT D) PO (08:26)
[2023-09-24 09:19] LABS: APC Ratio 4.5 ratio (>=2.1)
--- NOTE | 2023-09-24 10:15 | PCNWS ---
Weekly nutritional screen. Patient is tolerating current diet with adequate intake. No weight loss reported. No nutritional needs at this time.
[2023-09-24 11:13] LABS: Anti Cardio Antibody IgM <2.0 MPL-U/mL; Anti Cardiolipin Antibody IgA <2.0 APL-U/mL; Anti Cardiolipin Antibody IgG <2.0 GPL-U/mL
--- NOTE | 2023-09-24 11:50 | PC.NURSE ---
To MRI via WC.
--- NOTE | 2023-09-24 13:10 | PC.NURSE ---
Returned from MRI via wheelchair.
[2023-09-24] MEDS: ACETAMINOPHEN 325 MG TABLET 650 MG PO (15:21)
--- NOTE | 2023-09-24 15:46 | PM.IMPN ---
Progress Note: A&P Assessment and Plan (1) Cervical spinal stenosis: Code(s): M48.02 - Spinal stenosis, cervical region Status: Acute Assessment and Plan: Neurology ordered MRIs showing: Brain MRI showing resolution of the optic neuritis and improvement of the sinusitis. Thoracic MRI showing no significant abnormalities. Cervical MRI showing severe degenerative spondylosis with moderate to severe spinal canal stenosis and cord compression at C3-C4, C4-C5, C5-C6, and C6-C7. Mild increased signal centrally in the cord is likely related to myelomalacia/cord compression rather than demyelinating disease. Suspect cervical spinal stenosis with cord compression related to RA. Discussed with neurology who will see patient in the morning to discuss. Recommended Neurosurgery consult to discuss prognosis and education about how to prevent complications. He will be need to notify anesthesiologist about this issue to prevent cervical hyperextension with intubation. Copies of these reports provided to patient. Hopefully home tomorrow (2) Sepsis: Qualifiers: Sepsis acute organ dysfunction status: unspecified Sepsis type: sepsis due to unspecified organism Qualified Code(s): A41.9 - Sepsis, unspecified organism Code(s): A41.9 - Sepsis, unspecified organism Status: Acute Assessment and Plan: Patient developed sore throat that progressed to swelling and erythema to right neck without airway compromise. Sepsis present on admission with fever, leukocytosis, subjective chills and tachycardia. CT of soft tissue neck shows fat stranding in the right lower neck with swelling with subcutaneous edema, most likely inflammatory. Cultures obtained and started on cefepime and vancomycin. WBC 21K-->31K -->27K --> 27K --> 19K --> 16K -->13K --> normal Monospot negative. Group A Strept PCR negative,. Influenza/RSV/COVID PCR negative. MRSA not detected. BCx 09/15 growing Group A strept. Repeat BCx 09/16 NGTD Surface Echo showing EF 60% with moderate valvular disease and mild pHTN. Carotid doppler showing <50% in the bilateral ICA. EBV DNA 2800 with 3.5 log copies/mL Changed Cefepime to Rocephin 09/18. Vanco stopped 09/19 WBC and CRP continuing to trend down. Clinically better and erythema fading. Suspect erythema is dependent and stopping at the waist band Discussed case with ID at [place] (Dr Corado) on 09/20. The EBV could be reactive from the current infection or possibly chronic given his immune state. If chronic, then he is at risk for lymphoproliferative disorders (need to make sure his adenopathy resolves). Fever again yesterday. On DVT prophylaxis. LE venous dopplers negative for DVT. CT Ch/A/P showing bilateral dependent atelectasis, greater in the right lung. Infection is not excluded. Trace left and small right pleural effusions. Right lower neck subcutaneous stranding, with paratracheal lymphadenopathy, similar to the prior examination. Mild perinephric stranding and periureteral stranding, which could represent ascending infection. UA showing SG 1.045, 1+ protein and 6-10 RBC. Renal fxn normal so doubt urinary issue. Fever associated with atelectasis? Incentive spirometry ordered and patient is compliant. CPAP ordered and tolerating (when he wears this). Some cough with swallowing but normal Speech evaluation. Doppler RUE showing superficial thrombophlebitis. Warm compresses ordered. BCx repeated and are NGTD No recurrent fever. Discussed with [facility]ard[facility] ID who recommended abx adjustment which was done (3) Right optic neuritis: Code(s): H46.9 - Unspecified optic neuritis Status: Acute Assessment and Plan: Patient having visual changes. MRI brain showin. Multiple T2 and FLAIR hyperintense signal areas which is suggestive of deep white matter ischemic changes versus white matter disease. 2. T2 bright signal in the right optic nerve with postcontrast enhancement 3. Pansinusitis. Optic neuritis usually
[2023-09-25] VITALS: BP 146/81; PULSE 65; RESP 18; TEMP 36.8; O2SAT 95
[2023-09-25 03:53] VITALS: BP 151/92; PULSE 76; RESP 18; TEMP 36.7; O2SAT 95
[2023-09-25 04:04] LABS: Antithrombin III Activity 59 % normal (80-135)
[2023-09-25 06:48] VITALS: BP 148/77; PULSE 66; RESP 18; TEMP 36.5; O2SAT 99
--- NOTE | 2023-09-25 07:49 | PM.IMPN ---
Progress Note: A&P Assessment and Plan (1) Cervical spinal stenosis: Code(s): M48.02 - Spinal stenosis, cervical region Status: Acute (2) Sepsis: Qualifiers: Sepsis acute organ dysfunction status: unspecified Sepsis type: sepsis due to unspecified organism Qualified Code(s): A41.9 - Sepsis, unspecified organism Code(s): A41.9 - Sepsis, unspecified organism Status: Acute (3) Right optic neuritis: Code(s): H46.9 - Unspecified optic neuritis Status: Acute (4) White matter disease, unspecified: Code(s): R90.82 - White matter disease, unspecified Status: Acute (5) Cellulitis of neck: Code(s): L03.221 - Cellulitis of neck Status: Acute (6) Hypokalemia: Code(s): E87.6 - Hypokalemia Status: Acute (7) Hypertension: Code(s): I10 - Essential (primary) hypertension Status: Acute (8) Asthma: Code(s): J45.909 - Unspecified asthma, uncomplicated Status: Acute Plan (1) Cervical spinal stenosis: Code(s): M48.02 - Spinal stenosis, cervical region Status: Acute Assessment and Plan: Neurology ordered MRIs showing: Brain MRI showing resolution of the optic neuritis and improvement of the sinusitis. Thoracic MRI showing no significant abnormalities. Cervical MRI showing severe degenerative spondylosis with moderate to severe spinal canal stenosis and cord compression at C3-C4, C4-C5, C5-C6, and C6-C7. Mild increased signal centrally in the cord is likely related to myelomalacia/cord compression rather than demyelinating disease. Suspect cervical spinal stenosis with cord compression related to RA. Discussed with neurology who will see patient in the morning to discuss. Recommended Neurosurgery consult to discuss prognosis and education about how to prevent complications. He will be need to notify anesthesiologist about this issue to prevent cervical hyperextension with intubation. Copies of these reports provided to patient. 09/24: per neurologist recommendation, consult neurosurgeon for evaluation treatment. I had a thorough discussion about patient condition of myelomalacia/cord compression, regarding risk of quadriplegia due to progression or manner neck injury. Patient patient request to be discharged and follow up with his own neurosurgeon, and they have declined to to see our neurosurgeon in [facility] (2) Sepsis: Qualifiers: Sepsis acute organ dysfunction status: unspecified Sepsis type: sepsis due to unspecified organism Qualified Code(s): A41.9 - Sepsis, unspecified organism Code(s): A41.9 - Sepsis, unspecified organism Status: Acute Assessment and Plan: Patient developed sore throat that progressed to swelling and erythema to right neck without airway compromise. Sepsis present on admission with fever, leukocytosis, subjective chills and tachycardia. CT of soft tissue neck shows fat stranding in the right lower neck with swelling with subcutaneous edema, most likely inflammatory. Cultures obtained and started on cefepime and vancomycin. WBC 21K-->31K -->27K --> 27K --> 19K --> 16K -->13K --> normal Monospot negative. Group A Strept PCR negative,. Influenza/RSV/COVID PCR negative. MRSA not detected. BCx 09/15 growing Group A strept. Repeat BCx 09/16 NGTD Surface Echo showing EF 60% with moderate valvular disease and mild pHTN. Carotid doppler showing <50% in the bilateral ICA. EBV DNA 2800 with 3.5 log copies/mL Changed Cefepime to Rocephin 09/18. Vanco stopped 09/19 WBC and CRP continuing to trend down. Clinically better and erythema fading. Suspect erythema is dependent and stopping at the waist band Discussed case with ID at [place] (Dr Corado) on 09/20. The EBV could be reactive from the current infection or possibly chronic given his immune state. If chronic, then he is at risk for lymphoproliferative disorders (need to make sure his adenopathy resolves). Fever
[2023-09-25 08:00] VITALS: BP 150/97; PULSE 61; RESP 16; TEMP 36.5; O2SAT 93
[2023-09-25] MEDS: ENOXAPARIN 40 MG/0.4 ML SYRINGE SUB-Q (08:22)
[2023-09-25] MEDS: LINEZOLID 600 MG TABLET PO (08:22)
[2023-09-25] MEDS: LOSARTAN POTASSIUM 50 MG TABLET PO (08:22)
[2023-09-25] MEDS: CHOLECALCIFEROL 400 UNITS TABLET (VIT D) PO (08:22)
--- NOTE | 2023-09-25 09:59 | WPDNEUROPN ---
Subjective Date/time seen: 09/25/23 09:59 Interval history: 63 years old right-handed with ongoing history of rheumatoid arthritis in addition to the history of hypertension, bronchial asthma, rheumatoid arthritis for which he is on Humira underwent investigation during this particular hospitalization MRI of the cervical spine was obtained which revealed severe degenerative spondylosis with moderate to severe spinal canal stenosis and cord compression at the level of C3-4 C4-C5 C5-C6 and C6 and 7 along with the multilevel neural foraminal narrowing. Patient has had the thoracic MRI as well which is normal and the MRI of the brain only revealed mild scattered foci of white matter hyperintensities which is within normal limits for the age on the basis of the chronic small vessel ischemic disease with bilaterally symmetrical optic nerves without any swelling or enhancement. I received a call from Dr. Fonseca and discussed with the patient this morning about the finding he will definitely need a neurosurgical intervention on elective basis and we can make an appointment with the neurosurgical services either at [facility] or [facility] at this stage he can be discharged if our neurosurgical group have been consulted and they want to see him before he goes home they can decide accordingly. On re-examination today he is awake alert cooperative, in no obvious acute distress, generally feeling well. Pupils round regular carroll of vision full in all 4 quadrants extraocular movements full with no nystagmus facial sensation intact face symmetrical tongue midline uvula midline motor examination revealed him to have no drift of the upper extremities against gravity and with no focal atrophy of the muscles of the upper extremities reflexes are sluggish but symmetrical motor exam of the lower extremities normal he is able to stand on heels and toes take steps and the Romberg's test is negative. Objective Data Vital Signs Vital Signs: Vital Signs - 24 hr 09/24/23 12:00 09/24/23 16:00 09/24/23 19:28 Temperature 36.4 C 36.4 C 36.6 C Pulse Rate 72 64 71 Respiratory Rate 18 18 18 Blood Pressure 156/83 H 174/85 H 141/81 H Pulse Oximetry 99 98 97 Oxygen Delivery 09/25/23 00:00 09/25/23 03:53 09/25/23 06:48 Temperature 36.8 C 36.7 C 36.5 C Pulse Rate 65 76 66 Respiratory Rate 18 18 18 Blood Pressure 146/81 H 151/92 H 148/77 H Pulse Oximetry 95 95 99 Oxygen Delivery 09/25/23 08:00 09/25/23 08:20 Temperature 36.5 C Pulse Rate 61 Respiratory Rate 16 Blood Pressure 150/97 H Pulse Oximetry 93 Oxygen Delivery Room Air Intake/Output Intake/Output: Intake & Output 09/22/23 09/23/23 09/24/23 09/25/23 23:59 23:59 23:59 23:59 Intake Total 2435 1270 2320 Output Total 1100 Balance 1335 1270 2320 Meds/Results Medications: Active Medications Generic Name Dose Route Start Last Admin Trade Name Freq PRN Reason Stop Dose Admin Acetaminophen 650 mg 09/16/23 12:59 09/24/23 15:21 Acetaminophen 325 Mg Tablet PO 650 mg Q4H PRN Administration Mild Pain (1-3) or Fever Enoxaparin Sodium 40 mg 09/17/23 09:00 09/25/23 08:22 Enoxaparin 40 Mg/0.4 Ml Syringe SUB-Q 40 mg DAILY FIOR Administration Linezolid 600 mg 09/23/23 12:00 09/25/23 08:22 Linezolid 600 Mg Tablet PO 09/30/23 23:59 600 mg Q12HR FIOR Administration Losartan Potassium 50 mg 09/24/23 09:00 09/25/23 08:22 Losartan Potassium 50 Mg Tablet PO 50 mg DAILY FIOR Administration Morphine Sulfate 2 mg 09/16/23 14:58 09/16/23 15:56 Morphine Sulfate (*Crx) 4 Mg/Ml Inj IV PUSH 2 mg Q2H PRN Administration Pain Rated 7-10 Ondansetron HCl 4 mg 09/16/23 12:59 Ondansetron Inj 4 Mg/2 Ml Vial IV PUSH Q4H PRN Nausea Vitamin D 400 units 09/20/23 09:00 09/25/23 08:22 Cholecalciferol 400 Units Tablet (Vit D) PO 400 units QAM FIOR Administration Radiology Results: ITS Impressions Soft Tissue Neck CT
[2023-09-25 10:00] VITALS: BP 143/93; PULSE 67; RESP 16; TEMP 36.6; O2SAT 97
--- NOTE | 2023-09-25 10:47 | PM.DS ---
DS: Admitting Diagnosis Discharge Date 09/24 Admitting Diagnosis (1) Cervical spinal stenosis: Code(s): M48.02 - Spinal stenosis, cervical region Status: Acute (2) Sepsis: Qualifiers: Sepsis acute organ dysfunction status: unspecified Sepsis type: sepsis due to unspecified organism Qualified Code(s): A41.9 - Sepsis, unspecified organism Code(s): A41.9 - Sepsis, unspecified organism Status: Acute (3) Right optic neuritis: Code(s): H46.9 - Unspecified optic neuritis Status: Acute (4) White matter disease, unspecified: Code(s): R90.82 - White matter disease, unspecified Status: Acute (5) Cellulitis of neck: Code(s): L03.221 - Cellulitis of neck Status: Acute (6) Hypokalemia: Code(s): E87.6 - Hypokalemia Status: Acute (7) Hypertension: Code(s): I10 - Essential (primary) hypertension Status: Acute (8) Asthma: Code(s): J45.909 - Unspecified asthma, uncomplicated Status: Acute DS: Discharge Diagnosis Discharge Diagnosis (1) Cervical spinal stenosis: Code(s): M48.02 - Spinal stenosis, cervical region Status: Acute (2) Sepsis: Qualifiers: Sepsis acute organ dysfunction status: unspecified Sepsis type: sepsis due to unspecified organism Qualified Code(s): A41.9 - Sepsis, unspecified organism Code(s): A41.9 - Sepsis, unspecified organism Status: Acute (3) Right optic neuritis: Code(s): H46.9 - Unspecified optic neuritis Status: Acute (4) White matter disease, unspecified: Code(s): R90.82 - White matter disease, unspecified Status: Acute (5) Cellulitis of neck: Code(s): L03.221 - Cellulitis of neck Status: Acute (6) Hypokalemia: Code(s): E87.6 - Hypokalemia Status: Acute (7) Hypertension: Code(s): I10 - Essential (primary) hypertension Status: Acute (8) Asthma: Code(s): J45.909 - Unspecified asthma, uncomplicated Status: Acute DS: Summary Hospital Course Hospital Course: This is a very pleasant 63-year-old male with hypertension, asthma, and rheumatoid arthritis on Humira who presented to the emergency department for evaluation of swelling in the right neck the patient provides the following history. He gives a 3 day history of sinus congestion and nonproductive cough for which he has been taking DayQuil and NyQuil with symptom relief. This morning he awoke with discomfort and fullness in the right lower neck/upper chest and with further questioning he mentions that bilateral supraclavicular lymph nodes seemed a bit swollen and tender the last day or so. He has not had any injury or trauma and denied open wounds over the affected area. He also denies fever, otalgia, odynophagia, dental pain, shortness of breath, and difficulties swallowing. He has no history of cellulitis and has no known history multidrug resistant organisms. In the ED: He was afebrile on arrival with stable vital signs. Labs were significant for a WBC count of 20.7, potassium 3.2, BUN 23, creatinine 0.80, lactic acid 1.2. Viral panel was negative. Soft tissue neck CT showed fat stranding in the right lower neck with swelling and subcutaneous edema, likely inflammatory, and enlarged lymph nodes in the pair of pharyngeal and posterior triangle areas. He was given a dose of piperacillin/tazobactam and vancomycin and is being admitted in this setting for further treatment. The following med issues have been addressed during hospitalization (1) Cervical spinal stenosis: Code(s): M48.02 - Spinal stenosis, cervical region Status: Acute Assessment and Plan: Neurology ordered MRIs showing: Brain MRI showing resolution of the optic neuritis and improvement of the sinusitis. Thoracic MRI showing no significant abnormalities. Cervical MRI showing severe degenerative spondylosis with moderate to severe spinal canal
[2023-09-29 07:53] LABS: Factor V (Leiden) Mutation NEGATIVE
== END 2023-09-25 11:20 | disposition home or self-care (01) | DRG 872 ==
LOC: ANHED 13:04 → ANH2MED 13:24
PROVIDERS: General Practice; Internal Medicine; Nurse Practitioner Acute Care; Physician Assistant; Psychiatry & Neurology Neurology; Admitting Provider Internal Medicine; Emergency Provider Physician Assistant; Visit Provider Hospitalist
DX: A40.0 Sepsis due to streptococcus, group A (principal); H46.9 Unspecified optic neuritis; L03.221 Cellulitis of neck; D84.9 Immunodeficiency, unspecified; I47.20 Ventricular tachycardia, unspecified; G95.89 Other specified diseases of spinal cord; M48.02 Spinal stenosis, cervical region; E87.6 Hypokalemia; G47.33 Obstructive sleep apnea (adult) (pediatric); I10 Essential (primary) hypertension; J45.909 Unspecified asthma, uncomplicated; J01.40 Acute pansinusitis, unspecified; M06.9 Rheumatoid arthritis, unspecified; M47.22 Other spondylosis with radiculopathy, cervical region; Z96.653 Presence of artificial knee joint, bilateral
CPT/HCPCS: 11043; 36415; 70491; 70553; 71260; 72156; 72157; 74177; 80048; 80053; 80061; 80202; 81001; 81240; 81241; 81291; 82306; 82565; 82607; 82746; 83605; 83735; 83921; 84145; 84443; 85025; 85027; 85300; 85303; 85306; 85307; 85384; 85613; 85730; 86140; 86147; 86308; 87040; 87081; 87181; 87637; 87641; 87651; 92610; 93005; 93880; 93970; 93971; 94640; 96361; 96365; 96366; 96367; 96372; 96375; 96376; 99285; A9270; A9577; C8929; G0378; J0692; J0696; J1650; J2270; J2405; J2543; J3370; J3411; J3475; J7030; J7040; J7120; Q9957; Q9967

== ENCOUNTER 2024-06-26 00:50 | Day surgery (SDC) | payer BC, SELFPAY ==
[2024-06-22 09:37] VITALS: BMI 28.6
--- OUTSIDE RECORDS SUMMARY | 2024-06-26 00:52 | XMS_ITS | Clinical Summary ---
Author Organization [facility] [employer] Address [address] [place] [address] Care Team Providers Care Orderly Name Role Phone [address] Primary Care Prov ider Source Comments [facility],non-owned Affiliates and Associated Physician Practices is amultiple site organization consisting of ambulatory clinics and hospital sitesin [place], [place], [place] and [place]. This disclosure is being madepursuant to the Care Everywhere program and may not contain all information available regarding this patient. Last updated 17.[facility] [employer] Allergies Active Allergy Reactions Criticality Noted Date Comments Hydrocodone Rash Medium 09/26/2015 Medications * Be aware that medications may not be up to date on this document. Alwaysverify current medications with the patient. Medication Sig Dispensed Refills Start Date End Date Status chlorthalidone (HYGROTON) 25 MG tablet 09/29/2019 Active DULERA 200-5 MCG/ACT inhaler Inhale 2 (two) puffs by mouth 2 times daily 06/22/2021 Active aspirin EC (Ecotrin) 81 MG tablet Take 1 (one) tablet by mouth 10/03/2021 Active triamcinolone acetonide (Kenalog) 0.1 % cream APPLY TO AFFECTED AREAS TWICE DAILY NEEDED FOR RASH 04/03/2023 Active losartan (Cozaar) 50 MG tablet Take 1 (one) tablet by mouth once daily 09/25/2023 Active folic acid (Folvite) 1 MG tablet Take 1 (one) tablet by mouth once daily 90 tablet 4 10/07/2023 Active methotrexate 2.5 MG tablet TAKE 5 TABLETS BY MOUTH EVERY 7 DAYS 20 tablet 5 03/24/2024 Active ibuprofen (Motrin) 800 MG tablet Take 1 (one) tablet by mouth 3 times daily 270 tablet 1 04/20/2024 Active tiZANidine (Zanaflex) 4 MG tablet TAKE 1 TABLET BY MOUTH EVERY 8 HOURS NEEDED FOR MUSCLE SPASMS 90 tablet 1 06/11/2024 Active tiZANidine (Zanaflex) 4 MG tablet Take 1 (one) tablet by mouth every 8 hours as needed For muscle spasms. 90 tablet 1 02/20/2024 06/11/2024 Discontinued Active Problems Problem Noted Date Diagnosed Date Rheumatoid arthritis involvi ng multiple sites with positive rheumatoid factor 08/07/2018 Asthma 08/31/2009 Allergic rhinitis 08/31/2009 ED (erectile dysfunction) 08/31/2009 RA (rheumatoid arthritis) 08/31/2009 Resolved Problems Problem Noted Date Diagnosed Date Resolved Date Encounter for therapeutic drug monitoring 10/28/2017 09/03/2022 Encounters Date Type Department Care Team Description 06/12/2024 Orders Only [facility] - Rheumatology [facility] [place] [address] [address] Vickie Benavides MD Rheumatoid arthritis involving multiple sites with positive rheumatoid factor; Encounter for therapeutic drug monitoring; Encounter for long-term (current) use of high-risk medication 06/11/2024 Refill [facility] - Rheumatology [address] [place] [address] Bib Nagy MD Refill Request 05/01/2024 Orders Only [facility] - Rheumatology [facility] [place] [address] Vickie Benavides MD Rheumatoid arthritis involving multiple sites with positive rheumatoid factor; Encounter for therapeutic drug monitoring; Encounter for long-term (current) use of high-risk medication 04/20/2024 2:00 PM FINANCIAL AID OFFICER Office Visit [facility] [place] [address] Vickie Benavides MD Rheumatoid arthritis involving multiple sites with positive rheumatoid factor (Primary Dx); Encounter for therapeutic drug monitoring; Encounter for long-term (current) use of high-risk medication 04/20/2024 Travel from Last 3 Months Immunizations Name Administration Dates Next Due FLU VACCINE TRI IIV3 SPLIT P F IM (FLUVIRIN) 12/19/2012 HEP A VACCINE, ADULT 10/22/1995,10/17/1994 INFLUENZA VACCINE 01/02/2022, 9,02/04/2002,2001,03/21/2000,01/16/1999,04/27/1998,1 04/20/1996 INFLUENZA VACCINE, QUADR. (A FLURIA, FLUZONE QUADRIVALENT; 6MO+) (IIV4) 02/04/2002,04/06/2001 MENINGOCOCAL MENINGITIS 02/17/1997,06/07/1992 MMR 04/18/1978 POLIO OPV 08/17/1979,04/18/1978 TD (AGE 7-ADULT) 10/11/2017,01/04/1992 TDAP (7yrs+) 12/17/2019,07/31/2007 TYPHOID ORAL 01/04/1992 TYPHOID VACCINE 12/17/1994 TYPHOID VACCINE H-P 04/27/1998 YELLOW FEVER 10/12/1988 Zoster Hzv Vacc Recombinant Inj Im 03/23/2020, iNFLUENZA VACCINE, RECOM-THORNTON, QUADR. (FLUBLOCK QUADRIVALENT; 18Y+) (RIV4) 12/28/2019 Family History Medical History Relation Name Comments Heart Disease Father Arthritis - Rheumatoid Mother Diabetes Mother Relation Name Status Comments Father Mother Social History Tobacco Use Types Packs/Day Years Used Date Smoking Tobacco: Some Days Cigarettes Last attempted to quit: 05/21/2012 Cigars Smokeless Tobacco: Never Tobacco Cessation:Ready to Q uit: Not Asked; Counseling Given: Not Answered Comments:1 CIGAR PER WEEK, quit cigarettes 05/2012 Alcohol Use Standard Drinks/Week Comments Yes 0.8 (1 standard drink = 0.6 oz p ure alcohol) social PHQ-2 Answer Date Recorded Patient Health Questionnaire-2 Score 0 02/13/2023 Sex and Gender Information Value Date Recorded Sex Assigned at Not on file Gender Identity Not on file Sexual Orientation Not on file Last Filed Vital Signs Vital Sign Reading Time Taken Comments Blood Pressure 119/77 04/20/2024 2:15 PM FINANCIAL AID OFFICER Pulse 58 04/20/2024 2:15 PM FINANCIAL AID OFFICER Temperature 36.7 C (98 F) 04/20/2024 2:15 PM FINANCIAL AID OFFICER Respiratory Rate 18 01/18/2021 9:14 AM CDT Oxygen Saturation 96% 04/20/2024 2:15 PM FINANCIAL AID OFFICER Inhaled Oxygen Concentration - - Weight 106.9 kg (235 lb 9.6 oz) 04/20/2024 2:15 PM FINANCIAL AID OFFICER Height 190.5 cm (6' 3 ) 08/28/2023 2:40 PM CDT Body Mass Index 29.45 08/28/2023 2:40 PM CDT Plan of Treatment Upcoming Encounters Date Type Department Care Team (Late st Contact Info) Description 07/06/2024 8:20 AM CDT Office Visit [facility] - Sleep Services [address] [place] [phone] Samaria Young DO [address] [place] [address] 09/21/2024 2:00 PM CDT Office Visit [facility] - Rheumatology [address] [place] [address] Vickie Benavides MD [address] [place] [phone] Health Maintenance Due Date Last Done Comments COLOGUARD (AGES 45-75) - COLON CA SCREENING 1960 COLON MONITORING 1960 COLONOSCOPY - COLON CA SCREENING 1960 CT COLONOGRAPHY - COLON CA SCREENING 1960 Colorectal Cancer Screening 1960 FIT - COLON CA SCREENING 1960 FLEX SIG - COLON CA SCREENING 1960 LIPID TESTING 1960 HIV SCREENING 06/28/1975 HEPATITIS C SCREENING 06/23/1978 PNEUMOCOCCAL VACCINE 50+ (1 of 2 - PCV) 06/28/1979 Respiratory Syncytial Virus (RSV) Vaccine Pt: or over 60 yrs (1 - Risk 60-74 years 1-dose series) 2020 COVID-19 VACCINE (5 - season) 2023 11/24/2021, 04/01/2021, 05/20/2020, Additional history exists DEPRESSION SCREENING 03/18/2024 02/13/2023 SCREENING FOR DIABETES 03/02/2027 , 04/17/2022, 08/07/2018 DTAP/TDAP/TD VACCINES (5 - Td or Tdap) 12/16/2029 12/17/2019, 10/11/2017, 07/31/2007, Additional history exists MENINGOCOCCAL GROUPS A/C/Y/W VACCINE Aged Out 02/17/1997, 06/07/1992 No longer eligibl e based on patient's age to complete this topic ZOSTER VACCINE Completed 03/23/2020, 12/17/2019 INFLUENZA VACCINE Completed 11/29/2023, , 01/02/2022, Additional history exists HEPATITIS B VACCINE Aged Out No longe r eligible based on patient's age to complete this topic HIB VACCINE Aged Out No longer eligi ble based on patient's age to complete this topic HPV VACCINE Aged Out No longer eligi ble based on patient's age to complete this topic MENINGOCOCCAL (Group B) VACCINE SHARED DECISION-MAKING Aged Out No longer eligible based on patient's age to complete this topic Goals Goal Patient Goal Type Associated Problems Recent Progress Patient-Stated? Author [facility] Lifestyle: Have labs drawn Lifestyle No Melissa Munoz Procedures Procedure Name Priority Date/Time Associated Diagnosis Comments COMPREHENSIVE METABOLIC PANEL 03/02/2024 8:47 AM FINANCIAL AID OFFICER from Last 3 Months or Most Recently Relevant to Health Maintenance Results * (ABNORMAL) COMPREHENSIVE METABOLIC PANEL (03/02/2024 8:47 AM FINANCIAL AID OFFICER) Pathologist [facility] [place] Glucose 109(H) 65 - 99 mg/dL [facility] Comment: Fasting reference interval For someone without known diabetes, a glucose value between 100 and 125 mg/dL is consistent with prediabetes and should be confirmed with a follow-up test. BUN 25 7 - 25 mg/dL [facility] Creatinine 0.75 0.70 - 1.35 mg/dL [facility] eGFR by Cystatin C 101 > OR = 60 mL/min/1. 73m2 [facility] BUN/Creatinine Ratio SEE NOTE: 6 - 22 (calc) [facility] Comment: Not Reported: BUN and Creatinine are within reference range. Sodium 135 135 - 146 mmol/L [facility] Potassium 3.8 3.5 - 5.3 mmol/L [facility] Chloride 101 98 - 110 mmol/L [facility] CO2 27 20 - 32 mmol/L [facility] Calcium 9.4 8.6 - 10.3 mg/dL [facility] Protein Total 7.1 6.1 - 8.1 g/dL [facility] Albumin 4.2 3.6 - 5.1 g/dL [facility] Globulin Total 2.9 1.9 - 3.7 g/dL (calc) [facility] Albumin/Globulin Ratio 1.4 1.0 - 2.5 (calc) [facility] Bilirubin Total 0.5 0.2 - 1.2 mg/dL [facility] Alkaline Phosphatase 67 35 - 144 U/L [facility] AST 22 10 - 35 U/L [facility] ALT 17 9 - 46 U/L [facility] Comment: Test Performed at: [employer] [address] [place] [address] CL SNIDER MD 03/02/2024 8:47 AM FINANCIAL AID OFFICER 03/02/2024 8:48 AM FINANCIAL AID OFFICER Vickie Benavides MD LAB - CHEMISTR Y ORDERABLES [facility] [address] [place] [address] from Last 3 Months or Most Recently Relevant to Health Maintenance Advance Directives Documents on File Type Date Recorded Patient Combination Saw Operator Expl anation Adv Directive/Living Will/POA 08/31/2009 Adv Directive/Living Will/POA 08/31/2009 Care Teams Orderly Relationship Specialty Start Date End Date [facility], [facility] [address], [place] [address] PCP - General 10/21/17
--- OUTSIDE RECORDS SUMMARY | 2024-06-26 00:52 | XMS_ITS | Continuity of Care Document ---
Author Name [facility] Organization [facility] Care Team Providers Care Fish Butcher Name Role Phone [facility] Unavailable Unavailable Problems Combined list of problems from Department of [place] and Veterans Affairs facilities. It does not include entries that were removed or entered in error. Problem Status Onset Date Problem Type Date of Resolution Comments Source BPH - benign prostatic hyperplasia Active 4 Diagnosis [facility] LUTS - lower urinary tract symptoms Active 4 Diagnosis -[facility] Essential hypertension Active 4 Diagnosis -[facility] Hyperlipidemia Active 4 Diagnosis -[facility] Encounter for screening for malignant neoplasm of colon Active 4 Diagnosis [facility] Annual wellness exam Active 4 Diagnosis -[facility] Essential hypertension Active Condition -[facility] Hyperlipidemia Active Condition 0055C-3 [facility] Localized, secondary osteoarthritis Active Condition 0055C-[facility] Morbid obesity Active Condition Unknown Organization Obesity Active Condition -[facility] Osteoarthritis of knee Active Condition [facility] Pain of joint of knee Active Condition [facility] Rheumatoid arthritis Active Condition [facility] Smoker Active Condition 0055C-[facility] Encounter for general adult medical examination with abnormal findings Active Diagnosis 0055C[facility]3 [facility] Poor urinary stream Active Diagnosis [facility] Urgency of urination Active Diagnosis [facility] Frequency of micturition Active Diagnosis -[facility] Benign prostatic hyperplasia without lower urinary tract symptoms Active Diagnosis -[facility] Essential (primary) hypertension Active Diagnosis -[facility] Hyperlipidemia, unspecified Active Diagnosis [facility] Medications Combined list of outpatient medications from Department of Defense and Veterans Affairs facilities.Medications provided include 1) outpatient medications from the last 15 months, and 2) patient-reported medications. Medication Details Route Status Patient Instructions Prescription Expires Prescription Number Last Dispense Date Ordering Provider Order Date Order Qty Source Aspirin Enteric Coated 81 mg oral delayed release tablet 1 tab(s), Oral, Daily, Take one tablet by mouth every day * swallow whole - do not crush or chew*, # 90 tab(s), 3 total refill(s ), [facility], Pharmacy : [facility] Oral (given by mouth) Discont inued 02/10/2024 2023 90.0 0055C-[address] [place] [address] [facility] Aspirin Enteric Coated 81 mg oral delayed release tablet 1 tab(s), Oral, Daily, do not crush or chew, # 90 tab(s), 3 total refill(s ), [facility], Pharmacy : [facility] Oral (given by mouth) Ordered 5 2023 90.0 0055C-[address] [place] [address] Pilar budesonide- formoterol 160 mcg-4.5 mcg/inh inhalation aerosol 4.5 Unknown, Unknown, 0 Refill(s ), 0 total refill(s ), Soft Stop Ordered 2023 0055C-[address] [place] [address] [facility] chlorthalid one 25 mg oral tablet 1 tab(s), Oral, Daily, # 90 tab(s), 0 total refill(s ), [facility] Oral (given by mouth) Discont inued 02/06/20232022 90.0 0055C-3 [facility] Pilar chlorthalid one 25 mg oral tablet 1 tab(s), Oral, Daily, # 90 tab(s), 3 total refill(s ), [facility], Pharmacy : [facility] Oral (given by mouth) Discont inued 02/10/2024 4 2023 90.0 0055C-3 [facility] Pilar chlorthalid one 25 mg oral tablet 1 tab(s), Oral, Daily, # 90 tab(s), 3 total refill(s ), [facility], Pharmacy : [facility] Oral (given by mouth) Ordered 5 2023 90.0 0055C-3 [facility] chlorthalid one 25 mg tablet See Instruct ions, # 90 EA, 1 total refill(s ), Acute Complet ed 02/04/2023 3 2022 90.0 Ambulat ory Pharmac y Humira Pen 40 mg/0.4 mL subcutaneou s kit 0.4 mL, SubCutan eous, every 4 wk, # 2 EA, 0 total refill(s ), [facility] SubCut aneous (under the skin) Ordered 2022 2.0 0055C-3 [facility] ibuprofen 800 mg oral tablet 1 tab(s), Oral, every 8 hr, # 30 tab(s), 0 total refill(s ), [facility] Oral (given by mouth) Ordered 2023 30.0 0055C-3 [facility] losartan 25 mg oral tablet 1 tab(s), Oral, Daily, for blood pressure , # 90 tab(s), 3 total refill(s ), [facility] Oral (given by mouth) Discont inued 02/06/20232022 90.0 0055C-3 [facility] losartan 25 mg oral tablet 1 tab(s), Oral, Daily, for blood pressure , # 90 tab(s), 3 total refill(s ), [facility], Pharmacy : [facility] Oral (given by mouth) Complet ed 10/14/2023 4 2023 90.0 0055C-[address] [facility] los[facility] 25 mg tablet See dose instruct ions in comments , # 90 EA, 1 total refill(s ), Acute Complet ed 02/04/2023 3 2022 90.0 Ambulat ory Pharmac y losartan 50 mg oral tablet 50 mg, Oral, Daily, # 90 tab(s), 3 total refill(s ), [facility], Pharmacy : [facility] Oral (given by mouth) Ordered 5 2023 90.0 0055C-3 [facility] losartan 50 mg oral tablet 50 mg, Oral, 0 Refill(s ), Take 1 (one) tablet by mouth once daily, 0 total refill(s ), Soft Stop Oral (given by mouth) Discont inued 02/10/20242023 0055C-[address] [place], [place] [address]Mem[facility] methotrexat e 2.5 mg oral tablet 20 EA, 0 Refill(s ), TAKE 5 TABLETS BY MOUTH EVERY 7 DAYS, 0 total refill(s ), Soft Stop Ordered 2023 0055C-[address] [place], [place] [address]BA[facility] Multi-Day Plus Minerals oral tablet Oral, Daily, 0 total refill(s ), [facility] Oral (given by mouth) Ordered 2023 0055C-[address] [place], [place] [address]BA[facility] multivitami n adult, oral tablet Oral, Daily, 0 total refill(s ), [facility] Oral (given by mouth) Ordered 2023 0055C-[address] [place] [address] Pilar rosuvastati n 5 mg oral tablet 1 tab(s), Oral, Daily, for choleste rol, # 90 tab(s), 3 total refill(s ), Maintena nce, Pharmacy : [facility] Oral (given by mouth) Ordered 5 2023 90.0 0055C-[address] [place], [place] [address]BA[facility] Symbicort 160 mcg-4.5 mcg/inh inhalation aerosol 2 puff(s), Inhale, BID, # 1 EA, 0 total refill(s ), [facility] Inhala tion (breat he in) Discont inued 02/10/20242023 1.0 0055C-[address] [place] [address] [facility] tiZANidine 4 mg oral tablet 72 EA, 0 Refill(s ), TAKE 1 TABLET BY MOUTH EVERY 8 HOURS NEEDED FOR MUSCLE SPASMS, 0 total refill(s ), Soft Stop Ordered 2023 0055C-[address] [place], [place] [address]Memo [facility] Immunizations Combined list of available immunizations from the Department of Defense and Veterans Affairs facilities. Immunization Series Date Given Administered By Site Reaction Lot Number CVX Code Drug [place] Status Comments Source RSV vaccine preF3, recombinant 2023 JAMES NATHAN 303 complet ed Result Comment: [facility]; NDC: 06177-817 8-11 0055A-[address] [place] [address] Influenza, injectable, MDCK-pf 2023 PIERO CHAVEZ KER 153 complet ed Result Comment: Route: Unknown Manufactu rer: OTH (unk) 2912E-[address] [place] [address] COVID-19 vaccine(Comir meagan 12y+) 2023 ALEXRGARCIAFA NTAUZZI 309 complet ed Result Comment: [facility]: [facility] [place]: [id number] [phone] 10 0055A-[address] [place] [address] influenza virus vaccine, inactivated 2023 ALEXRGARCIAFA NTAUZZI 88 complet ed Result Comment: [facility]: [phone] 03 0055A-[address] [place] [address] influenza virus vaccine, unspecified 2022 ALEXRGARCIAFA NTAUZZI 88 complet ed Result Comment: [facility] [place]: 02666-070 3-03 Ambulat ory Pharmac y COVID-19 vaccine(Comir meagan 12y+) 2022 ALEXRGARCIAFA NTAUZZI 309 complet ed Result Comment: [facility] [place]: [id number] 10 Ambulat ory Pharmac y influenza virus vaccine, unspecified 2021 [id number] Unknown complet ed influenza virus vaccine, unspecifi ed 01/02/22 Given Ambulat ory Pharmac y influenza virus vaccine, unspecified 2021 [id number] Unknown complet ed influenza virus vaccine, unspecifi ed 01/02/22 Given Ambulat ory Pharmac y COVID Vaccine Pfizer 2021 [id number] 208 PFIZER complet ed COVID Vaccine Pfizer 11/24/21 Given Ambulat ory Pharmac y COVID Vaccine Pfizer 2021 [id number] 208 PFIZER complet ed COVID Vaccine Pfizer 11/24/21 Given Ambulat ory Pharmac y COVID Vaccine Pfizer 2021 [id number] 208 P[employer]ZER complet ed COVID Vaccine Pfizer 04/01/21 Given Ambulat ory Pharmac y COVID Vaccine Pfizer 2020 TRANSCR IBED 208 PFIZER complet ed COVID Vaccine Pfizer 05/20/20 Given Ambulat ory Pharmac y COVID Vaccine Pfizer 2020 TRANSCR IBED 208 PFIZER complet ed COVID Vaccine Pfizer 05/20/20 Given Ambulat ory Pharmac y COVID Vaccine Pfizer 2020 TRANSCR IBED 208 PFIZER complet ed COVID Vaccine Pfizer 05/01/20 Given Ambulat ory Pharmac y COVID Vaccine Pfizer 2020 TRANSCR IBED 208 P[facility]ZER complet ed COVID Vaccine Pfizer 05/01/20 Given Ambulat ory Pharmac y zoster vaccine, inactivated 2020 Clarence t Arm [id number] 187 GlaxoSmithKli ne complet ed zoster vaccine, inactivat ed 03/23/20 Given Ambulat ory Pharmac y influenza, injectable, quadrivalent- pf 2019 [id number] 150 sanofi pasteur complet ed influenza , injectabl e, quadrival ent-pf 12/28/19 Given Ambulat ory Pharmac y influenza, injectable, quadrivalent- pf 2019 [id number] 150 sanofi pasteur complet ed influenza , injectabl e, quadrival ent-pf 12/28/19 Given Ambulat ory Pharmac y zoster vaccine, inactivated 2019 Shadia bull Arm [id number] 187 GlaxoSmithKli ne complet ed zoster vaccine, inactivat ed 12/17/19 Given Ambulat ory Pharmac y tetanus, diphtheria, acellular pertu is 2019 zMartinef t Arm [id number] 115 Gl[employer]oSmithK[employer] ne complet ed tetanus, diphtheri a, acellular pertussis 12/17/19 Given Ambulat ory Pharmac y zoster vaccine, inactivated 2019 [id number] 187 GlaxoSmithKli ne complet ed zoster vaccine, inactivat ed 12/17/19 Given Ambulat ory Pharmac y tetanus, diphtheria, acellular pertu is 2019 [id number] 115 [employer] complet ed tetanus, diphtheri a, acellular pertussis 12/17/19 Given Ambulat ory Pharmac y tetanus-dipht h toxoids (Td) adult/adol 2017 zzLef t Arm [id number] 09 sanofi pasteur complet ed tetanus-d iphth toxoids (Td) adult/ado l 10/11/17 Given Ambulat ory Pharmac y tetanus-dipht h toxoids (Td) adult/adol 2017 [id number] 09 sanofi pasteur complet ed tetanus-d [facility] toxoids (Td) adult/ado l 10/11/17 Given Ambulat ory Pharmac y tuberculin purified protein derivative 2016 zzLef t Arm [id number] 96 sanofi pasteur complet ed Patient Tolerance : Negative Ambulat ory Pharmac y tuberculin purified protein derivative 2016 [id number] 96 sanofi pasteur complet ed tuberculi n purified protein derivativ e 06/26/16 Given Ambulat ory Pharmac y tuberculin purified protein derivative 2014 zzLef t Arm [id number] 96 sanofi pasteur complet ed Patient Tolerance : Negative Ambulat ory Pharmac y tuberculin purified protein derivative 2014 [id number] 96 sanofi pasteur complet ed tuberculi n purified protein derivativ e 07/21/14 Given Ambulat ory Pharmac y influenza, seasonal, injectable-pf 2012 zzLef t Arm [id number] 140 sanofi pasteur complet ed influenza , seasonal, injectabl e-pf 12/19/12 Given Ambulat ory Pharmac y influenza, seasonal, injectable-pf 2012 [id number] 140 sanofi pasteur complet ed influenza , seasonal, injectabl e-pf 12/19/12 Given Ambulat ory Pharmac y tuberculin purified protein derivative 2011 zzLef t Arm [id number] 96 sanofi pasteur complet ed Patient Tolerance : Negative Ambulat ory Pharmac y tuberculin purified protein derivative 2009 zzLef t Arm [id number] 96 sanofi pasteur complet ed Patient Tolerance : Negative Ambulat ory Pharmac y tuberculin purified protein derivative 2009 [id number] 96 sanofi pasteur complet ed tuberculi n purified protein derivativ e 09/30/09 Given Ambulat ory Pharmac y tetanus, diphtheria, acellular pertu is 2007 zzLef t Arm [id number] 115 sanofi pasteur complet ed tetanus, diphtheri a, acellular pertussis 07/31/07 Given Ambulat ory Pharmac y tetanus, diphtheria, acellular pertu is 2007 [id number] 115 sanofi pasteur complet ed tetanus, diphtheri a, acellular pertussis 07/31/07 Given Ambulat ory Pharmac y tuberculin purified protein derivative 2007 zzLef t Arm [id number] 96 sanofi pasteur complet ed Patient Tolerance : Negative Ambulat ory Pharmac y tuberculin purified protein derivative 2007 [id number] 96 sanofi pasteur complet ed tuberculi n purified protein derivativ e 07/28/07 Given Ambulat ory Pharmac y tuberculin purified protein derivative 2005 [id number] 96 sanofi pasteur complet ed tuberculi n purified protein derivativ e 07/31/05 Given Ambulat ory Pharmac y tuberculin purified protein derivative 2002 zzLef t Arm [id number] 96 sanofi pasteur complet ed Patient Tolerance : Negative Ambulat ory Pharmac y influenza virus vaccine,split 2001 [id number] 15 [facility] complet ed influenza virus vaccine,s plit 02/04/02 Given Ambulat ory Pharmac y influenza virus vaccine,split 2001 [id number] 15 [facility] complet ed influenza virus vaccine,s plit 02/04/02 Given Ambulat ory Pharmac y influenza virus vaccine,split 2001 zzLef t Arm [id number] 15 [facility] complet ed influenza virus vaccine,s plit 04/06/01 Given Ambulat ory Pharmac y influenza virus vaccine,split 2001 [id number] 15 [facility] complet ed influenza virus vaccine,s plit 04/06/01 Given Ambulat ory Pharmac y tuberculin purified protein derivative 2000 zzLef t Arm [id number] 96 [employer]i pasteur complet ed Patient Tolerance : Negative Ambulat ory Pharmac y tuberculin purified protein derivative 2000 [id number] 96 san[employer]i pasteur complet ed tuberculi n purified protein derivativ e 12/24/00 Given Ambulat ory Pharmac y influenza virus vaccine,split 2000 [id number] 15 [facility] complet ed influenza virus vaccine,s plit 03/21/00 Given Ambulat ory Pharmac y influenza virus vaccine,split 2000 [id number] 15 [facility] complet ed influenza virus vaccine,s plit 03/21/00 Given Ambulat ory Pharmac y influenza virus vaccine,split 1998 15 complet ed influenza virus vaccine,s plit 01/16/99 Given Ambulat ory Pharmac y typhoid vaccine, parenteral 1998 [id number] 41 [facility] complet ed typhoid vaccine, parentera l 04/27/98 Given Ambulat ory Pharmac y typhoid vaccine, parenteral 1998 [id number] 41 [facility] complet ed typhoid vaccine, parentera l 04/27/98 Given Ambulat ory Pharmac y tuberculin purified protein derivative 19981981 [id number] 96 [facility] complet ed tuberculi n purified protein derivativ e 04/27/98 Given Ambulat ory Pharmac y influenza virus vaccine,split [id number] 15 [facility] complet ed influenza virus vaccine,s plit 04/27/98 Given Ambulat ory Pharmac y influenza virus vaccine,split [id number] 15 [facility] complet ed influenza virus vaccine,s plit 04/27/98 Given Ambulat ory Pharmac y influenza virus vaccine,split 1996 [id number] 15 [facility] complet ed influenza virus vaccine,s plit 02/17/97 Given Ambulat ory Pharmac y meningococcal polysaccharid e (MPSV4) 1996 [id number] 32 [facility] complet ed meningoco ccal polysacch aride (MPSV4) 02/17/97 Given Ambulat ory Pharmac y influenza virus vaccine,split 1996 [id number] 15 [facility] complet ed influenza virus vaccine,s plit 02/17/97 Given Ambulat ory Pharmac y meningococcal polysaccharid e (MPSV4) 1996 [id number] 32 [facility] complet ed meningoco ccal polysacch aride (MPSV4) 02/17/97 Given Ambulat ory Pharmac y hepatitis A adult vaccine 1995 [id number] 52 [facility] complet ed hepatitis A adult vaccine 10/22/95 Given Ambulat ory Pharmac y hepatitis A adult vaccine 1995 [id number] 52 [facility] complet ed hepatitis A adult vaccine 10/22/95 Given Ambulat ory Pharmac y tuberculin purified protein derivative 1995 96 complet ed tuberculi n purified protein derivativ e 10/22/95 Given Ambulat ory Pharmac y typhoid, parenteral, AKD 1994 [id number] 53 [facility] complet ed typhoid, parentera l, AKD 12/17/94 Given Ambulat ory Pharmac y typhoid, parenteral, AKD 1994 [id number] 53 [facility] complet ed typhoid, parentera l, AKD 12/17/94 Given Ambulat ory Pharmac y typhoid vaccine, unspecified formulation 1994 PIERO CHAVEZ [facility] [id number] 91 complet ed typhoid vaccine, unspecifi ed formulati on 12/17/94 Recorded 0055C-[address] [place] [address] hepatitis A adult vaccine 1994 52 complet ed hepatitis A adult vaccine 10/17/94 Given Ambulat ory Pharmac y hepatitis A adult vaccine 1994 52 complet ed hepatitis A adult vaccine 10/17/94 Given Ambulat ory Pharmac y meningococcal polysaccharid e (MPSV4) 1992 32 complet ed meningoco ccal polysacch aride (MPSV4) 06/07/92 Given Ambulat ory Pharmac y tetanus-dipht h toxoids (Td) adult/adol 1991 09 complet ed tetanus-d iphth toxoids (Td) adult/ado l 01/04/92 Given Ambulat ory Pharmac y typhoid vaccine, live, oral 1991 TRANSCR IBED 25 complet ed typhoid vaccine, live, oral 01/04/92 Given Ambulat ory Pharmac y typhoid vaccine, live, oral 1991 TRANSCR IBED 25 complet ed typhoid vaccine, live, oral 01/04/92 Given Ambulat ory Pharmac y yellow fever vaccine 1988 [id number] 37 [facility] complet ed yellow fever vaccine 10/12/88 Given Ambulat ory Pharmac y yellow fever vaccine 1988 [id number] 37 [facility] complet ed yellow fever vaccine 10/12/88 Given Ambulat ory Pharmac y poliovirus vaccine, live, oral 1979 02 complet ed polioviru s vaccine, live, oral 08/17/79 Given Ambulat ory Pharmac y poliovirus vaccine, live, oral 1978 02 complet ed polioviru s vaccine, live, oral 04/18/78 Given Ambulat ory Pharmac y poliovirus vaccine, live, oral 1978 02 complet ed polioviru s vaccine, live, oral 04/18/78 Given Ambulat ory Pharmac y measles/mumps /rubella virus vaccine 1978 03 complet ed measles/m umps/rube lla virus vaccine 04/18/78 Given Ambulat ory Pharmac y measles/mumps /rubella virus vaccine 1978 03 complet ed measles/m umps/rube lla virus vaccine 04/18/78 Given Ambulat ory Pharmac y Results Combined list of recent chemistry, hematology and other laboratory results from Department of Defense and [facility], ranging from 15 months to all on record, depending upon the facility. Order Name Results Value Reference Range Date Interpretation Specimen Comments Source Hematolog y Eos Absolute 0.2 x10^3/mc L 0.0 - 0.7103 02/02 N 0055A-[address] [place] [address] Hematolog y Eosinophil % Auto 3 % 0 - 5 02/02 N 0055A-[address] [place] [address] Hematolog y Baso Absolute 0.0 x10^3/mc L 0.0 - 0.1103 02/02 N 0055A-[address] [place] [address] Hematolog y Basophil % Auto 0.6 % 0.0 - 2.5 02/02 N 0055A-[address] [place] [address] Hematolog y Neutrophil % Auto 73.4 % 46.0 - 77.0 02/02 N 0055A-[address] [place] [address] Hematolog y Neutro Absolute 6.2 x10^3/mc L 2.0 - 7.0103 02/02 N 0055A-[address] [place] [address] Hematolog y Monocyte % Auto 10 % 1 - 12 02/02 N 0055A-[address] [place] [address] Hematolog y Taney Absolute 0.8 x10^3/mc L 0.2 - 0.8103 02/02 N 0055A-[address] [place] [address] Hematolog y Lymph Absolute 1.1 x10^3/mc L 1.2 - 4.0103 02/02 L 0055A-[address] [place] [address] Hematolog y Lymphocyte % Auto 13.2 % 20.0 - 40.0 02/02 L 0055A-[address] [place] [address] Chemistry eAvg Glucose 108 mg/dL 02/[address] [place] [address] Chemistry Hemoglobin A1c 5.4 % 4.0 - 5.6 02/02 N Interpretiv e Data: Normal: 4.0 - 5.6% Increased Risk: 5.7 - 6.4% Diabetic Range: 6.5% For patients without diabetes, the normal range for the hemoglobin A1c test is between 4% and 5.6%. Hemoglobin A1c levels between 5.7% and 6.4% indicate increased risk of diabetes, and levels of 6.5% or higher indicate diabetes. Because studies have repeatedly shown that out-of-cont rol diabetes results in complicatio ns from the disease, the goal for people with diabetes is a hemoglobin A1c less than 7%. The higher the hemoglobin A1c, the higher the risks of developing complicatio ns related to diabetes. If confirmatio n is needed, consider recalling the patient and ordering Hemoglobin Electrophor esis. [address] [place] [address] Chemistry LDL 148 mg/dL 100 - 130 02/02 H Interpretiv e Data: AGES 0-19: Desirable: < 110 mg/dL Borderline High: 110-129 mg/dL High: >/= 130 mg/dL ADULTS: Desirable: <100 mg/dL Near/above optimal: 100-130 mg/dL Borderline High: 131-159 mg/dL High: 160-189 mg/dL Very High: 190 mg/dL [address] [place] [address] Chemistry HDL Cholesterol 36 mg/dL 40 - 59 02/02 L Interpretiv e Data: HDL (HIGH DENSITY LIPOPROTEIN ): ADULTS: Low: < 40 mg/dL High: >/= 60 mg/dL AGES 0 -19: Low: < 40 mg/dL Borderline Low: 40 - 45 mg/dL Acceptable: > 45 mg/dL [address] [place] [address] Chemistry Cholesterol Total 180 mg/dL 02/02 N Interpretiv e Data: According to the [employer] : AGES 0-19: Desirable: < 170 mg/dL Borderline High: 170-199 mg/dL High Blood Cholesterol : >/= 200 mg/dL ADULTS: Desirable < 200 mg/dL Borderline High: 200-239 mg/dL High Blood Cholesterol : >/= 240 mg/dL [facility] Chemistry Chol/HDL 5 mg/dL 02/02 0055A-3 [facility] Chemistry Triglycerid es 79 mg/dL 7 - 149 02/02 N Interpretiv e Data: AGES 0-9: Desirable: < 75 mg/dL Borderline High: 75-99 mg/dL High: >/= 100 mg/dL AGES 10-19: Desirable: < 90 mg/dL Borderline High: 90-129 mg/dL High: >/= 130 mg/dL ADULTS: Desirable: < 150 mg/dL Borderline High: 150-199 mg/dL High: >/= 240 mg/dL Very High: >/= 500 mg/dL 0055A-3 [facility] Chemistry LDL/HDL 4 02/02 0055A-3 [facility] Hematolog y Platelets 276.0 x10^3/mc L 150.0 - 450.0103 02/02 N 0055A-3 [facility] Hematolog y MPV 11.1 fL 7.4 - 10.4 02/02 H 0055A-3 [facility] Hematolog y MCV 100 fL 80 - 97 02/02 H 0055A-3 [facility] Hematolog y MCHC 35.6 g/dL 33.0 - 36.5 02/02 N 0055A-3 [facility] Hematolog y MCH 36 pg 28 - 33 02/02 H 0055A-3 [facility] Hematolog y Hematocrit 38 % 40 - 49 02/02 L 0055A-3 [facility] Hematolog y Hemoglobin 13.7 g/dL 13.0 - 16.3 02/02 N 0055A-3 [facility] Hematolog y WBC 8.4 x10^3/mc L 4.0 - 11.0103 02/02 N 0055A-3 [facility] Hematolog y RDW 13.0 % 11.0 - 14.9 02/02 N 0055A-3 [facility] Hematolog y RBC 3.8 x10^6/mc L 4.0 - 5.6106 02/02 L 0055A[facility]3 [facility] Phosphorus 2.8 mg/dL 2.3 - 4.7 02/02 N 0055A-[address] [place] [address] Chemistry Potassium Lvl 3.6 mmol/L 3.5 - 5.1 02/02 N 0055A-[address] [place] [address] Chemistry Sodium 138 mmol/L 136 - 145 02/02 N 0055A-[address] [place] [address] Chemistry Creatinine Level 0.90 mg/dL 0.72 - 1.25 02/02 N 0055A-[address] [place] [address] Chemistry Glucose Lvl 117 mg/dL 74 - 99 02/02 H 0055A-[address] [place] [address] Chemistry CO2 24 mmol/L 22 - 29 02/02 N 0055A-[address] [place] [address] Chemistry Calcium 9.6 mg/dL 8.4 - 10.2 02/02 N 0055A-[address] [place] [address] Chemistry Chloride 104 mmol/L 98 - 107 02/02 N 0055A-[address] [place] [address] Chemistry BUN 20 mg/dL 8 - 26 02/02 N 0055A-[address] [place] [address] Chemistry BUN/Creat Ratio 22 mg/dL 12 - 20 02/02 H 0055A-[address] [place] [address] Chemistry Albumin 3.50 g/dL 3.50 - 5.20 02/02 N 0055A-[address] [place] [address] Chemistry AGAP 10.00 0.00 - 15.00 02/02 N 0055A-[address] [place] [address] Chemistry eGFR CKD EPI 96 mL/min/1 .73_m2 02/02 Interpretiv e Data: Estimated Glomerular Filtration Rate (eGFR) calculated using the 2020 Chronic Kidney Disease-Epi demiology (CKD-EPI) Collaborati on creatinine equation; units of measure are mL/min/1.73 m2. Results are only valid for adults (>=18 years) whose serum creatinine is in steady state. eGFR calculation s are not valid for patients with acute kidney injury and for patients on dialysis. Creatinine- based estimates of kidney function may also be inaccurate in patients with reduced creatinine generation due to decreased muscle mass (e.g., malnutritio n, severe hypoalbumin emia, sarcopenia, chronic neuromuscul ar disease, amputations , severe heart failure or liver disease) and in patients with increased creatinine generation due to increased muscle mass (e.g., muscle builders, anabolic steroids) or increased dietary intake. CKD is diagnosed based on abnormaliti es of kidney structure or function, present for >3 months, with implication s for health and disease. CKD is classified and staged based on cause, eGFR and albuminuria (quantified as urine albumin to creatinine ratio). An eGFR >60 mL/min/1.73 m2 in the absence of increased urine albumin excretion or structural abnormaliti es does not CKD. eGFR provides only an estimate of measured GFR within +/- 30% for most patients. As mentioned, nutritional status and muscle mass, among many factors, may lead to inaccuracy in the estimate. Consider ordering the creatinine- cystatin C panel if better accuracy is needed for clinical decision-pat hammond. eGFR (mL/min/1.7 3 m2) CKD stage Interpretat ion Normal 60-89 Mild decrease 45-59 Mild to moderate decrease 30-44 Moderate to severe decrease 15-29 Severe decrease <15 Kidney failure 0055A-[address] [place] [address]- [facility] Chemistry Glucose Lvl 96 mg/dL 74 - 99 10/13 N 0055A-[address] [place], [place] [address]iCopyright Chemistry CO2 23 mmol/L 22 - 10/13 N 0055A-[address] [place], [place] [address]i[employer] Chemistry Creatinine Level 0.80 mg/dL 0.72 - 1.25 10/13 N 0055A-[address] [place], [place] [address]i[employer] Chemistry Potassium Lvl 4.0 mmol/L 3.5 - 5.1 10/13 N 0055A-[address] [place], [place] [address]i[employer] Chemistry Sodium 137 mmol/L 136 - 145 10/13 N 0055A-[address] [place] [address] P[facility] Chemistry AGAP 7.00 0.00 - 15.00 10/13 N 0055A-[address] [place], [place] [address]i[employer] Chemistry Calcium 9.1 mg/dL 8.4 - 10.2 10/13 N 0055A-[address] [place], [place] [address]i[employer] Chemistry BUN 16 mg/dL 8 - 26 10/13 N 0055A-[address] [place], [place] [address]iCopyright Chemistry BUN/Creat Ratio 20 mg/dL 12 - 20 10/13 N 0055A-[address] [place] [address] Chemistry Chloride 107 mmol/L 98 - 107 10/13 N 0055A-3 [facility]- [place] Hematolog y WBC 7.9 x10^3/mc L 4.0 - 11.0103 10/13 N 0055A-3 [facility]- [place] Hematolog y RDW 12.9 % 11.0 - 14.9 10/13 N 0055A-3 [facility]- [place] Hematolog y MPV 11.6 fL 7.4 - 10.4 10/13 H 0055A[facility]- [place] Hematolog y Platelets 263.0 x10^3/mc L 150.0 - 450.0103 10/13 N 0055A-3 [facility]- [place] Hematolog y RBC 3.8 x10^6/mc L 4.0 - 5.6106 10/13 L 0055A-3 [facility]- [place] Hematolog y MCHC 34.0 g/dL 33.0 - 36.5 10/13 N 0055A-3 [facility]- [place] Hematolog y MCV 101 fL 80 - 97 10/13 H 0055A-3 [facility]- [place] Hematolog y Hematocrit 39 % 40 - 49 10/13 L 0055A-3 [facility]- [place] Hematolog y Hemoglobin 13.2 g/dL 13.0 - 16.3 10/13 N 0055A-3 [facility]- [place] Hematolog y MCH 34 pg 28 - 33 10/13 H 0055A-3 [facility]- [place] Hematolog y Neutro Absolute 4.2 x10^3/mc L 2.0 - 7.0103 10/13 N 0055A-3 [facility]- [place] Hematolog y Neutrophil % Auto 52.7 % 46.0 - 77.0 10/13 N 0055A-[facility]- [place] Hematolog y Monocyte % Auto 9 % 1 - 12 10/13 N 0055A-3 [facility]- [place] Hematolog y Lymph Absolute 2.5 x10^3/mc L 1.2 - 4.0103 10/13 N 0055A-3 [facility]- [place] Hematolog y Taney Absolute 0.7 x10^3/mc L 0.2 - 0.8103 10/13 N 0055A-[address] [place] [address] Hematolog y Eos Absolute 0.4 x10^3/mc L 0.0 - 0.7103 10/13 N 0055A-[address] [place] [address] Hematolog y Eosinophil % Auto 6 % 0 - 5 10/13 H 5A-[address] [place] [address] Hematolog y Lymphocyte % Auto 31.3 % 20.0 - 40.0 10/13 N - [address] [place] [address] Hematolog y Baso Absolute 0.1 x10^3/mc L 0.0 - 0.1103 10/13 N 0055A-[address] [place] [address] Hematolog y Basophil % Auto 0.8 % 0.0 - 2.5 10/13 N - [address] [place] [address] Chemistry eGFR CKD EPI 99 mL/min/1 .73_m2 10/13 Interpretiv e Data: Estimated Glomerular Filtration Rate (eGFR) calculated using the 2020 Chronic Kidney Disease-Epi demiology (CKD-EPI) Collaborati on creatinine equation; units of measure are mL/min/1.73 m2. Results are only valid for adults (>=18 years) whose serum creatinine is in steady state. eGFR calculation s are not valid for patients with acute kidney injury and for patients on dialysis. Creatinine- based estimates of kidney function may also be inaccurate in patients with reduced creatinine generation due to decreased muscle mass (e.g., malnutritio n, severe hypoalbumin emia, sarcopenia, chronic neuromuscul ar disease, amputations , severe heart failure or liver disease) and in patients with increased creatinine generation due to increased muscle mass (e.g., muscle builders, anabolic steroids) or increased dietary intake. CKD is diagnosed based on abnormaliti es of kidney structure or function, present for >3 months, with implication s for health and disease. CKD is classified and staged based on cause, eGFR and albuminuria (quantified as urine albumin to creatinine ratio). An eGFR >60 mL/min/1.73 m2 in the absence of increased urine albumin excretion or structural abnormaliti es does not CKD. eGFR provides only an estimate of measured GFR within +/- 30% for most patients. As mentioned, nutritional status and muscle mass, among many factors, may lead to inaccuracy in the estimate. Consider ordering the creatinine- cystatin C panel if better accuracy is needed for clinical decision-pat hammond. eGFR (mL/min/1.7 3 m2) CKD stage Interpretat ion Normal 60-89 Mild decrease 45-59 Mild to moderate decrease 30-44 Moderate to severe decrease 15-29 Severe decrease <15 Kidney failure 0055A[facility] [place] Hematolog y Monocyte % Auto 9 % 1 - 12 09/12 N 0055A-3 [facility]- [place] Hematolog y Neutro Absolute 8.1 x10^3/mc L 2.0 - 7.0103 09/12 H 0055A-3 [facility]- [place] Hematolog y Neutrophil % Auto 67.7 % 46.0 - 77.0 09/12 N 0055A-3 [facility]- [place] Hematolog y Basophil % Auto 0.5 % 0.0 - 2.5 09/12 N 0055A-3 [facility]- [place] Hematolog y Eos Absolute 0.4 x10^3/mc L 0.0 - 0.7103 09/12 N 0055A-3 [facility]- [place] Hematolog y Lymph Absolute 2.3 x10^3/mc L 1.2 - 4.0103 09/12 N 0055A-[facility]- [place] Hematolog y Taney Absolute 1.1 x10^3/mc L 0.2 - 0.8103 09/12 H 0055A-3 [facility]- [place] Hematolog y Eosinophil % Auto 3 % 0 - 5 09/12 N 0055A-3 [facility]- [place] Hematolog y Lymphocyte % Auto 18.9 % 20.0 - 40.0 09/12 L 0055A-3 [facility]- [place] Hematolog y Baso Absolute 0.1 x10^3/mc L 0.0 - 0.1103 09/12 N 0055A-3 [facility]- [place] Hematolog y Platelets 264.0 x10^3/mc L 150.0 - 450.0103 09/12 N 0055A-3 [facility]- [place] Hematolog y RBC 3.9 x10^6/mc L 4.0 - 5.6106 09/12 L 0055A-3 [facility]- [place] Hematolog y MPV 10.4 fL 7.4 - 10.4 09/12 N 0055A-[facility] [place] Hematolog y RDW 11.7 % 11.0 - 14.9 09/12 N 0055A-3 [facility]- [place] Hematolog y WBC 12.0 x10^3/mc L 4.0 - 11.0103 09/12 H 0055A-3 [facility]- [place] Hematolog y Hemoglobin 13.4 g/dL 13.0 - 16.3 09/12 N 0055A-3 [facility] [place] Hematolog y Hematocrit 38 % 40 - 49 09/12 L 0055A-3 [facility] [place] Hematolog y MCV 98 fL 80 - 97 09/12 H 0055A-3 [facility] [place] Hematolog y MCH 35 pg 28 - 33 09/12 H 0055A-3 [facility] [place] Hematolog y MCHC 35.4 g/dL 33.0 - 36.5 09/12 N 0055A-[facility]- [place] Hematolog y Differentia l? Auto (09/13/23 1:11 PM) 09/12 N 0055A-[facility]- [place] Coagulati on aPTT. LC 30 s 09/12 Result Comment: This test has not been validated for monitoring unfractiona lawrence heparin therapy. aPTT-based therapeutic ranges for unfractiona lawrence heparin therapy have not been established . For general guidelines on Heparin monitoring, refer to the [facility] Directory of Services. Performed At: [address] [id number] Silverio Penn PhD Ph:[phone] [facility] CARLOS- [place] Coagulati on Prothrombin Time LC 11.4 s 09/12 Result Comment: Performed At: [address] [id number] Silverio Penn PhD Ph:[phone] 00 5A-3 [facility]- [place] Coagulati on INR LC 1.1 09/12 Result Comment: Reference interval is for non-anticoa gulated patients. Suggested INR therapeutic range for Vitamin K antagonist therapy: Standard Dose (moderate intensity therapeutic range): 2.0 - 3.0 Higher intensity therapeutic range 2.5 - 3.5 0055A-3 [facility] Chemistry eGFR CKD EPI 100 mL/min/1 .73_m2 Interpretiv e Data: Estimated Glomerular Filtration Rate (eGFR) calculated using the 2020 Chronic Kidney Disease-Epi demiology (CKD-EPI) Collaborati on creatinine equation; units of measure are mL/min/1.73 m2. Results are only valid for adults (>=18 years) whose serum creatinine is in steady state. eGFR calculation s are not valid for patients with acute kidney injury and for patients on dialysis. Creatinine- based estimates of kidney function may also be inaccurate in patients with reduced creatinine generation due to decreased muscle mass (e.g., malnutritio n, severe hypoalbumin emia, sarcopenia, chronic neuromuscul ar disease, amputations , severe heart failure or liver disease) and in patients with increased creatinine generation due to increased muscle mass (e.g., muscle builders, anabolic steroids) or increased dietary intake. CKD is diagnosed based on abnormaliti es of kidney structure or function, present for >3 months, with implication s for health and disease. CKD is classified and staged based on cause, eGFR and albuminuria (quantified as urine albumin to creatinine ratio). An eGFR >60 mL/min/1.73 m2 in the absence of increased urine albumin excretion or structural abnormaliti es does not CKD. eGFR provides only an estimate of measured GFR within +/- 30% for most patients. As mentioned, nutritional status and muscle mass, among many factors, may lead to inaccuracy in the estimate. Consider ordering the creatinine- cystatin C panel if better accuracy is needed for clinical decision-pat hammond. eGFR (mL/min/1.7 3 m2) CKD stage Interpretat ion Normal 60-89 Mild decrease 45-59 Mild to moderate decrease 30-44 Moderate to severe decrease 15-29 Severe decrease <15 Kidney failure 0055A-3 [facility] Hematolog y RDW 11.9 % 11.0 - 14.9 N 0055A-[address] [place] [address] Hematolog y RBC 4.0 x10^6/mc L 4.0 - 5.6106 N 0055A-3 [facility] Hematolog y WBC 6.6 x10^3/mc L 4.0 - 11.0103 N 0055A-3 [facility] Hematolog y MPV 10.9 fL 7.4 - 10.4 H 0055A-[address] [place] [address]- [place] Hematolog y MCH 35 pg 28 - 33 H 0055A-[address] [place] [address]- [place] Hematolog y Hemoglobin 14.0 g/dL 13.0 - 16.3 N 0055A-[address] [place] [address] Hematolog y MCV 98 fL 80 - 97 H 0055A-3 [facility]- [place] Hematolog y MCHC 35.8 g/dL 33.0 - 36.5 N 0055A-[address] [place] [address]- [place] Hematolog y Platelets 265.0 x10^3/mc L 150.0 - 450.0103 N 0055A-[address] [place] [address]- [facility] Hematolog y Hematocrit 39 % 40 - 49 L 0055A-[address] [place] [address] Hematolog y Differentia l? Auto (05/16/23 2:25 PM) N 0055A-[address] [place] [address] Chemistry AGAP 10.00 0.00 - 15.00 N 0055A-[address] [place] [address] Chemistry Albumin 3.50 g/dL 3.50 - 5.20 N 0055A-[address] [place] [address] Chemistry Alk Phos 60 U/L 40 - 150 N 0055A-[address] [place] [address] Chemistry Bilirubin Total 0.3 mg/dL 0.2 - 1.2 N 0055A-[address] [place] [address] Chemistry BUN 16 mg/dL 8 - 26 N 0055A-[address] [place] [address] Chemistry ALT 18 U/L 5 - 55 N 0055A-[address] [place] [address] Chemistry AST 20 U/L 5 - 34 N 0055A-[address] [place] [address] Chemistry CO2 27 mmol/L 22 - 29 N 0055A-[address] [place] [address] Chemistry Creatinine Level 0.80 mg/dL 0.72 - 1.25 02/29 /[address] [place] [address] Chemistry Calcium 9.3 mg/dL 8.4 - 10.[address] [place] [address] Chemistry Chloride 98 mmol/L 98 - [address] [place] [address] Chemistry BUN/Creat Ratio 20 mg/dL 12 - [address] [place] [address] Chemistry Protein Total 7.2 g/dL 6.4 - 8.[address] [place] [address] Chemistry Potassium Lvl 3.1 mmol/L 3.5 - 5.[address] [place] [address] Chemistry Sodium 135 mmol/L 136 - [address] [place] [address] Chemistry Glucose Lvl 115 mg/dL 74 - [address] [place] [address] Chemistry CRP 0.10 mg/dL 0.02 - 0.[address] [place] [address] Hematolog y ESR Auto Plus 21 mm/h 0 - 20 H Interpretiv e Data: The clinical significanc e of an ESR result obtained from an abnormal sample, including but not limited to icteric, lipemic, cold agglutinins , anemic conditions, low hemoglobin concentrati ons, hemolysis, or any pathologica l condition that interferes or prevents a clear red cell to plasma interface is subject to a high degree of variability . [address] [place] [address] Hematolog y Neutrophil % Auto 56.1 % 46.0 - 77.[address] [place] [address] Hematolog y Neutro Absolute 3.7 x10^3/mc L 2.0 - 7.[address] [place] [address] Hematolog y Monocyte % Auto 12 % 1 - [address] [place] [address] Hematolog y Taney Absolute 0.8 x10^3/mc L 0.2 - 0.[address] [place] [address] Hematolog y Basophil % Auto 0.8 % 0.0 - 2.5 N 0055A-[address] [place] [address]- [facility] Hematolog y Eosinophil % Auto 3 % 0 - 5 N 0055A-[address] [place] [address] Hematolog y Eos Absolute 0.2 x10^3/mc L 0.0 - 0.7103 N 0055A-[address] [place] [address] Hematolog y Lymph Absolute 1.8 x10^3/mc L 1.2 - 4.0103 N 0055A-[address] [place] [address] Hematolog y Lymphocyte % Auto 28.2 % 20.0 - 40.0 N 005-[address] [place] [address] Hematolog y Baso Absolute 0.0 x10^3/mc L 0.0 - 0.1103 N 0055A-[address] [place] [address] P[place] Urinalysi s UA Bili Negative (05/16/23 2:24 PM) N -[address] [place] [address] Urinalysi s UA Leuk Esterase Negative (05/16/23 2:24 PM) N 5A-[address] [place] [address] Urinalysi s UA Ketones Negative mg/dL N 005-[address] [place] [address]- [place] Urinalysi s UA Glucose Negative mg/dL N 0055A-[address] [place] [address] Urinalysi s UA Color Yellow *NA* (05/16/23 2:24 PM) -[address] [place] [address] Urinalysi s UA Clarity Clear *NA* (05/16/23 2:24 PM) 0055A-[address] [place] [address] Urinalysi s UA Blood Negative (05/16/23 2:24 PM) N 0055A-[address] [place] [address]- [place] Urinalysi s UA RBC TNP 0055A-[address] [place] [address]- [place] Urinalysi s UA Protein Negative mg/dL N 0055A-[address] [place] [address]- [place] Urinalysi s UA pH 7.0 *NA* (05/16/23 2:24 PM) 5 - 8 0055A-3 [facility]- [place] Urinalysi s UA Nitrite Negative (05/16/23 2:24 PM) N 0055A-3 [facility]- [place] Urinalysi s UA WBC TNP 0055A-3 [facility]- [place] Urinalysi s UA Urobilinoge n 0.2 E.U./dL 0.2 - 1.0.. N 0055A-3 [facility]- [place] Urinalysi s UA Spec [place] 1.015 1.001 - 1.035 N 0055A-3 [facility]- [place] Urinalysi s UA Nitrite Negative ( 12:43 PM) 12/31 N 0055A-3 [facility] [place] Urinal[facility] UA pH 6.5 ( 12:43 PM) 5 - 8 12/31 N 0055A-[address] [place] [address]- [place] Urinalysi s UA RBC TNP 12/31 0055A-3 [facility] [place] Urinalysi s UA Protein Negative mg/dL 12/31 N 0055A-3 [facility] [place] Urinalysi s UA WBC TNP 12/31 0055A-[address] [place] [address]- [place] Urinalysi s UA Urobilinoge n 0.2 E.U./dL 0.2 - 1.0.. 12/31 N 0055A-[address] [place] [address]- [place] Urinalysi s UA Spec [place] 1.020 1.001 - 1.035 12/31 N 0055A-3 [facility]- [place] Urinalysi s UA Bili Negative ( 12:43 PM) 12/31 N 0055A-3 [facility]- [place] Urinalysi s UA Blood Negative ( 12:43 PM) 12/31 N 0055A-[address] [place], [place] [address]GRP- [place] Urinalysi s UA Clarity Clear ( 12:43 PM) 12/31 N 0055A-[address] [place] [address]- [place] Urinalysi s UA Color Yellow ( 3 12:43 PM) 12/31 N 0055A-3 [facility] [place] Urinalysi s UA Glucose Negative mg/dL 12/31 N 0055A-3 [facility] [place] Urinalysi s UA Ketones Negative mg/dL 12/31 N 0055A-3 [facility] [place] Urinalysi s UA Leuk Esterase Negative ( 3 12:43 PM) 12/31 N 0055A-[address] [place] [address]- [place] Hematolog y Hematocrit 40 % 40 - 49 12/31 N 0055A-3 [facility] [place] Hemat[facility] y MCV 100 fL 80 - 97 12/31 H 0055A-[address] [place] [address]- [place] Hematolog y MPV 11.2 fL 7.4 - 10.4 12/31 H 0055A-[address] [place] [address]- [place] Hematolog y MCH 35 pg 28 - 33 12/31 H 0055A-[address] [place] [address]- [place] Hematolog y Hemoglobin 14.0 g/dL 13.0 - 16.3 12/31 N 0055A-[address] [place] [address]- [place] Hematolog y MCHC 34.7 g/dL 33.0 - 36.5 12/31 N 0055A-[address] [place] [address]- [place] Hematolog y WBC 8.1 x10^3/mc L 4.0 - 11.0103 12/31 N 0055A-[address] [place] [address]- [place] Hematolog y RDW 11.8 % 11.0 - 14.9 12/31 N 0055A-[address] [place] [address]- [place] Hematolog y RBC 4.1 x10^6/mc L 4.0 - 5.6106 12/31 N 0055A-3 [facility] [place] Hematolog y Platelets 298.0 x10^3/mc L 150.0 - 450.0103 12/31 N 0055A-[address] [place] [address] Chemistry AGAP 11.00 0.00 - 15.00 12/31 N 0055A-[address] [place] [address] Chemistry Albumin 3.60 g/dL 3.50 - 5.20 10/16 /2023 N 0055A-[address] [place] [address] Chemistry AST 20 U/L 5 - 34 12/31 N 0055A-[address] [place] [address] Chemistry Alk Phos 55 U/L 40 - 150 12/31 N 0055A-[address] [place] [address] Chemistry ALT 18 U/L 5 - 55 12/31 N 0055A-[address] [place] [address] Chemistry CO2 25 mmol/L 22 - 29 12/31 N 0055A-[address] [place] [address] Chemistry Creatinine Level 0.70 mg/dL 0.72 - 1.25 12/31 L 0055A-[address] [place] [address] Chemistry Calcium 9.3 mg/dL 8.4 - 10.2 12/31 N 0055A-[address] [place] [address] Chemistry Chloride 101 mmol/L 98 - 107 12/31 N 0055A-[address] [place] [address] Chemistry Bilirubin Total 0.5 mg/dL 0.2 - 1.2 12/31 N 0055A-[address] [place] [address] Chemistry BUN/Creat Ratio 31 mg/dL 12 - 20 12/31 H 0055A-[address] [place] [address] Chemistry BUN 22 mg/dL 8 - 26 12/31 N 0055A-[address] [place] [address] Chemistry Protein Total 7.6 g/dL 6.4 - 8.3 12/31 N 0055A-[address] [place] [address] Chemistry Potassium Lvl 4.0 mmol/L 3.5 - 5.1 12/31 N 0055A-[address] [place] [address] Chemistry Sodium 137 mmol/L 136 - 145 12/31 N 0055A-[address] [place] [address] Chemistry Glucose Lvl 102 mg/dL 74 - 99 12/31 H 0055A-[address] [place] [address] Chemistry CRP 1.02 mg/dL 0.02 - 0.50 12/31 H 0055A-[address] [place] [address] Hematolog y ESR Auto Plus 39 mm/h 0 - 20 12/31 H Interpretiv e Data: The clinical significanc e of an ESR result obtained from an abnormal sample, including but not limited to icteric, lipemic, cold agglutinins , anemic conditions, low hemoglobin concentrati ons, hemolysis, or any pathologica l condition that interferes or prevents a clear red cell to plasma interface is subject to a high degree of variability . 0055A-[address] [place] [address] Hematolog y Basophil % Auto 0.6 % 0.0 - 2.5 12/31 N 0055A-[address] [place] [address] Hematolog y Baso Absolute 0.1 x10^3/mc L 0.0 - 0.1103 12/31 N 0055A-[address] [place] [address] Hematolog y Eos Absolute 0.2 x10^3/mc L 0.0 - 0.7103 12/31 N 0055A-[address] [place] [address] Hematolog y Lymphocyte % Auto 19.6 % 20.0 - 40.0 12/31 L 0055A-[address] [place] [address] Hematolog y Eosinophil % Auto 2 % 0 - 5 12/31 N 0055A-[address] [place] [address] Hematolog y Lymph Absolute 1.6 x10^3/mc L 1.2 - 4.0103 12/31 N 0055A-[address] [place] [address] Hematolog y Taney Absolute 0.8 x10^3/mc L 0.2 - 0.8103 12/31 N 0055A-[address] [place] [address] Hematolog y Monocyte % Auto 10 % 1 - 12 12/31 N 0055A-[address] [place] [address] Hematolog y Neutro Absolute 5.5 x10^3/mc L 2.0 - 7.0103 12/31 N 0055A-[address] [place] [address] Hematolog y Neutrophil % Auto 67.7 % 46.0 - 77.0 12/31 N 0055A-[address] [place] [address] Chemistry eGFR CKD EPI 104 mL/min/1 .73_m2 12/31 Interpretiv e Data: Estimated Glomerular Filtration Rate (eGFR) calculated using the 2020 Chronic Kidney Disease-Epi demiology (CKD-EPI) Collaborati on creatinine equation; units of measure are mL/min/1.73 m2. Results are only valid for adults (>=18 years) whose serum creatinine is in steady state. eGFR calculation s are not valid for patients with acute kidney injury and for patients on dialysis. Creatinine- based estimates of kidney function may also be inaccurate in patients with reduced creatinine generation due to decreased muscle mass (e.g., malnutritio n, severe hypoalbumin emia, sarcopenia, chronic neuromuscul ar disease, amputations , severe heart failure or liver disease) and in patients with increased creatinine generation due to increased muscle mass (e.g., muscle builders, anabolic steroids) or increased dietary intake. CKD is diagnosed based on abnormaliti es of kidney structure or function, present for >3 months, with implication s for health and disease. CKD is classified and staged based on cause, eGFR and albuminuria (quantified as urine albumin to creatinine ratio). An eGFR >60 mL/min/1.73 m2 in the absence of increased urine albumin excretion or structural abnormaliti es does not CKD. eGFR provides only an estimate of measured GFR within +/- 30% for most patients. As mentioned, nutritional status and muscle mass, among many factors, may lead to inaccuracy in the estimate. Consider ordering the creatinine- cystatin C panel if better accuracy is needed for clinical decision-pat hammond. eGFR (mL/min/1.7 3 m2) CKD stage Interpretat ion Normal 60-89 Mild decrease 45-59 Mild to moderate decrease 30-44 Moderate to severe decrease 15-29 Severe decrease <15 Kidney failure 0055A-3 [facility] [place] Vital Signs Combined list of inpatient and outpatient Vital Signs from Department of Defense and Veterans Affairs, ranging from 12 months to all on record, depending upon the facility. Vital Sign Value Date Comments Source Peripheral Pulse Rate 73 bpm 02/05/2023 18:19:00 [facility] Systolic Blood Pressure 124 mm[Hg] 02/05/2023 18:19:00 [facility] Diastolic Blood Pressure 77 mm[Hg] 02/05/2023 18:19:00 [facility] Mean Arterial Pressure, Calc 93 mm[Hg] 02/05/2023 18:19:00 [facility] Temperature Oral 36.3 Vijaya 02/05/2023 18:19:00 [facility] Respiratory Rate 16 br/min 02/05/2023 18:19:00 [facility] Peripheral Pulse Rate 56 bpm 02/10/2024 21:28:00 [facility] BP Site Left arm 02/10/2024 21:28:00 [facility] Mean Arterial Pressure, Calc 103 mm[Hg] 02/10/2024 21:28:00 [facility] Temperature Oral 36.5 Vijaya 02/10/2024 21:28:00 [facility] Systolic Blood Pressure 136 mm[Hg] 02/10/2024 21:28:00 [facility] Diastolic Blood Pressure 86 mm[Hg] 02/10/2024 21:28:00 [facility] Blood Pressure Manual Automatic 02/10/2024 21:28:00 [facility] Respiratory Rate 16 br/min 02/10/2024 21:28:00 [facility] Blood Pressure Manual Automatic 10/14/2023 18:54:00 [facility] Respiratory Rate 16 br/min 10/14/2023 18:54:00 [facility] BP Site Left arm 10/14/2023 18:54:00 [facility] Peripheral Pulse Rate 58 bpm 10/14/2023 18:54:00 [facility] Mean Arterial Pressure, Calc 113 mm[Hg] 10/14/2023 18:54:00 [facility] Temperature Oral 36.7 Vijaya 10/14/2023 18:54:00 [facility] Systolic Blood Pressure 156 mm[Hg] 10/14/2023 18:54:00 [facility] Diastolic Blood Pressure 92 mm[Hg] 10/14/2023 18:54:00 [facility] Encounters Combined list of: 1) Encounters from [facility] of Veterans Affairs facilities going backup to the last 18 months, not all VA inpatient encounters are included; 2) Encounters from the Department of Defense facilities going backup to 280 months. Location Location Details Encounter Type Encounter Number Reason For Visit Attending Provider ADM Date DC Date Status Disposition Source [facility] Between Visit [id number] 12/11 Discharge Disposition: Home or Self Care - [address] [place] [address] [facility] Between Visit [id number] 01/09 Discharge Disposition: Home or Self Care - [address] [place] [address] [facility] Outpatient [id number] PIERO BILL EMILY 02/02 Discharge Disposition: Home or Self Care - [address] [place] [address] [facility] Clinic [id number] Encount er for general adult medical examina tion with abnorma l finding s,Poor urinary stream, Urgency of urinati on,Freq uency of micturi tion,En larged prostat e without lower urinary tract symptom s,Essen tial (primar y) hyperte nsion,H yperlip idemia, unspeci fied,En counter for screeni ng for maligna nt neoplas m of colon,E nlarged prostat e without lower urinary tract symptom s,Unspe cified symptom s and signs involvi ng the genitou rinary system, Essenti al (primar y) hyperte nsion,E ncounte r for general adult medical examina tion with abnorma l finding s,Hyper lipidem ia, unspeci fied PIERO BILL EMILY 02/09 Discharge Disposition: Home or Self Care - [address] [place] [address] [facility] yen Outside Documentat ion Only [id number] 04/08 Discharge Disposition: Home or Self Care [address] [place] [address] Procedures Combined list of: 1) Procedures from Department of Veterans Affairs facilities going back up to thelast 18 months, not all VA non-surgical procedures are included; 2) All procedures from the Department of Defense facilities. Procedure Procedure Type Code Date Perfomer Comments Sourc e Colorectal cancer screening; colonoscopy on individual not meeting criteria for hig h risk [facility] Social History Combined list of available smoking, tobacco, and other social history from Department of Defense and Veterans Affairs facilities. Social History Type Response Date Comment Sourc e Sex Representation Male (finding) 05/10/2022 Un known Organization Tobacco Frequent/Daily expos ure to secondhand smoke in indoor/confined spaces No. Cigarette use: Former-cigarette user. Other Tobacco use: Never-other tobacco user (not cigarettes). Ambulatory Pharmacy Sexual Orientation Ambula tory Pharmacy Gender identity Ambulator y Pharmacy Assessment and Plan Combined list of future care activities from Department of Defense and Veterans Affairs facilities (e.g., assessment and plan notes, appointments, orders, and referrals). Additional future care activities may be listed in the Plan of Care section. Result Assessment and Plan Date Source Assessment and Plan Extracted from:Title : [facility]55[facility] IM Clinic - Annual visit/BPH Author: PIERO FAYE MD Date: 02/10/24 1. A nnual wellness exam R eviewed most recent labs, imaging, history, and prev med. Discussed diet and exercise recommendations: 1 50 min/wk vigorous exercise per ACC/AHA. Annual labs o rdered for next year to include PSA, B12, HCV. Preventative Medicine: # General Wellness. -Colon CA Screening: Last2011, due, referral placed -Lung CA: D oes not meet criteria (non-smoker) -Prostate Cancer: BPH sxms, will plan for annual PSA -Osteoporosis Screening: N ot indicated -AAA Screening: Not indicated, nonsmoker -Diabetes Screening: Patient is N on-Diabetic. Last hgba1c of 5 .4 -Lipid Screening: O n statin -ASCVD: 15.9% -Hepatitis C (lifetime): Due, ordered for next year # Vaccinations: -Influenza: Advised to complete annually -Pneumococcal: Due, advised to obtain Prevnar 20 due to immunosuppression -Tetanus: Last Dec 2019 -Zoster: 0 03/23/2020x2 -COVID: C ompleted 2 -RSV: Completed 2023 2. E ssential hypertension Goal <130/80 per ACC/AHA. Home readings at goal, near goal i n clinic. Asymptomatic.?BMP unremarkable. - Continue chlorthalidone 2 5mg daily and losartan 50mg daily - Advised following the DASH diet or a diet low in sodium (<2400mg sodium daily) - Advised to keep daily blood pressure log and to call if readings are consistently above or below goal for >3 days or if symptoms develop 3. H yperlipidemia L DL 148. ASCVD risk: 15.9%. Father had CAD that started in his 50s, mom had strokes and CAD.? - Start Crestor 5mg daily - Continue aspirin 81mg daily for primary prevention given elevated risk and strong family hxy 4. B PH - benign prostatic hyperplasia He reports urgency and frequency, weak stream, up one to three times a night. He has been on Flomax before but did not have a lot of benefit. He is wondering what other options are available other than alpha blockers and 5-alpha reductase inhibitors. - Referral placed to Urology for further eval 5. L UTS - lower urinary tract symptoms Patient encouraged to return to clinic, present to C or ER for persistent worsening or development of other concerning symptoms. Patient cites understanding and agrees with plan of care. A total of 40 minutes was spent on this visit reviewing previous notes, counseling the patient on the listed diagnoses, reviewing/ordering tests, adjusting medications, and documenting the findings in this note. Piero Faye MD Capt, [address], [facility] Internal Medicine Staff Physician Extracted from:Title: 0055[facility] IM Clinic - Hospital follow-up/bacteremia Author: PIERO FAYE MD Date: 10/14/23 1. B acteremia He was admitted to [facility] for strep bacteremia, hypokalemia, positive EBV, and a right upper chest (supraclavicular) m ass. He received IV antibiotics and was told to f/u with ID for positive EBV with a DNA titer in the . He also has f/u with neurosurg. MRI showed only DDD. He is requesting a referral to [facility]. He reports that the supraclavicular mass is improving in size, but he is not sure what they determined it was (lymphadenopathy?). - Obtain hospital records - Plan to refer to [facility] once records are reviewed - Management of mass will be determined by imaging results. - Counseled on the risks and benefits of traveling after the hospital stay 2. E ssential hypertension Goal <130/80 per ACC/AHA. During the hospitalization, chlorthalidone was stopped, losartan was increased to 50mg daily, and he was started on Lopressor 25mg BID. His blood pressure has been 140-150s since then. BMP unremarkable. - Obtained CBC and BMP - Restart losartan 50mg daily and chlorthalidone 25mg daily - Unclear why he was started on Lopressor, will continue for the time being until results are reviewed - Advised following the DASH diet or a diet low in sodium (<2400mg sodium daily) - Advised to keep daily blood pressure log and to call if readings are consistently above or below goal for >3 days or if symptoms develop 3. S oft tissue mass Patient encouraged to return to clinic, present to UCC or ER for persistent worsening or development of other concerning symptoms. Patient cites understanding and agrees with plan of care. A total of 50 minutes was spent on this visit reviewing previous notes, counseling the patient on the listed diagnoses, reviewing/ordering tests, adjusting medications, and documenting the findings in this note. Piero Faye MD Capt, [address] [place] [address], [facility], Internal Medicine Staff Physician Extracted from:Title: 0055 [facility] Low Back Pain Author: THEODORE HERNANDEZ DO Date: 02/12/23 Low back pain History of low back pain 2/2 DJD without acute changes. No new symptoms or red flags. Patient's exam unremarkable. Will place referral to PT as requested, patient also advised to discuss with mamma logist to ensure he/she is not concerned about an autoimmune condition (he is not demonstrating signs or symptoms). Referral placed. Patient encouraged to return to clinic, present to [facility] or ER for persistent worsening or development of other concerning symptoms. Patient cites understanding and agrees with plan of care. A total of 40 minutes was spent on this visit reviewing previous notes, counseling the patient on the listed diagnoses, reviewing/ordering tests, adjusting medications, and documenting the findings in this note. Carole Hernandez DO, [facility] , , [facility] Internal Medicine, [employer] Future Scheduled TestsLaboratoryVitamin B12 [id number] 01/16/25Hemoglobin A1c 01/16/25Hepatitis C Antibody 01/16/25Prostate Specific Antigen 01/16/25CBC w/ Diff 01/16/25Lipid Panel 01/16/25 06/26/2024 [facility] Assessment and Plan Extracted from:Title : [facility] - Annual visit/BPH Author: PIERO FAYE MD Date: 02/10/24 1. A nnual wellness exam R eviewed most recent labs, imaging, history, and prev med. Discussed diet and exercise recommendations: 1 50 min/wk vigorous exercise per ACC/AHA. Annual labs o rdered for next year to include PSA, B12, HCV. Preventative Medicine: # General Wellness. -Colon CA Screening: Last2011, due, referral placed -Lung CA: D oes not meet criteria (non-smoker) -Prostate Cancer: BPH sxms, will plan for annual PSA -Osteoporosis Screening: N ot indicated -AAA Screening: Not indicated, nonsmoker -Diabetes Screening: Patient is N on-Diabetic. Last hgba1c of 5 .4 -Lipid Screening: O n statin -ASCVD: 15.9% -Hepatitis C (lifetime): Due, ordered for next year # Vaccinations: -Influenza: Advised to complete annually -Pneumococcal: Due, advised to obtain Prevnar 20 due to immunosuppression -Tetanus: Last Dec 2019 -Zoster: 0 03/23/2020x2 -COVID: C ompleted 2 -RSV: Completed 2023 2. E ssential hypertension Goal <130/80 per ACC/AHA. Home readings at goal, near goal i n clinic. Asymptomatic.?BMP unremarkable. - Continue chlorthalidone 2 5mg daily and losartan 50mg daily - Advised following the DASH diet or a diet low in sodium (<2400mg sodium daily) - Advised to keep daily blood pressure log and to call if readings are consistently above or below goal for >3 days or if symptoms develop 3. H yperlipidemia L DL 148. ASCVD risk: 15.9%. Father had CAD that started in his 50s, mom had strokes and CAD.? - Start Crestor 5mg daily - Continue aspirin 81mg daily for primary prevention given elevated risk and strong family hxy 4. B PH - benign prostatic hyperplasia He reports urgency and frequency, weak stream, up one to three times a night. He has been on Flomax before but did not have a lot of benefit. He is wondering what other options are available other than alpha blockers and 5-alpha reductase inhibitors. - Referral placed to Urology for further eval 5. L UTS - lower urinary tract symptoms Patient encouraged to return to clinic, present to UCC or ER for persistent worsening or development of other concerning symptoms. Patient cites understanding and agrees with plan of care. A total of 40 minutes was spent on this visit reviewing previous notes, counseling the patient on the listed diagnoses, reviewing/ordering tests, adjusting medications, and documenting the findings in this note. MD John Gaytan, [address], [facility] Internal Medicine Staff Physician Extracted from:Title: 0055C Clinic - Hospital follow-up/bacteremia Author: PIERO FAYE MD Date: 10/14/23 1. B acteremia He was admitted to [facility] for strep bacteremia, hypokalemia, positive EBV, and a right upper chest (supraclavicular) m ass. He received IV antibiotics and was told to f/u with ID for positive EBV with a DNA titer in the . He also has f/u with neurosurg. MRI showed only DDD. [facility] He reports that the supraclavicular mass is improving in size, but he is not sure what they determined it was (lymphadenopathy?). - Obtain hospital records - Plan to refer to [facility] once records are reviewed - Management of mass will be determined by imaging results. - Counseled on the risks and benefits of traveling after the hospital stay 2. E ssential hypertension Goal <130/80 per ACC/AHA. During the hospitalization, chlorthalidone was stopped, losartan was increased to 50mg daily, and he was started on Lopressor 25mg BID. His blood pressure has been 140-150s since then. BMP unremarkable. - Obtained CBC and BMP - Restart losartan 50mg daily and chlorthalidone 25mg daily - Unclear why he was started on Lopressor, will continue for the time being until results are reviewed - Advised following the DASH diet or a diet low in sodium (<2400mg sodium daily) - Advised to keep daily blood pressure log and to call if readings are consistently above or below goal for >3 days or if symptoms develop 3. S oft tissue mass Patient encouraged to return to clinic, present to UC or ER for persistent worsening or development of other concerning symptoms. Patient cites understanding and agrees with plan of care. A total of 50 minutes was spent on this visit reviewing previous notes, counseling the patient on the listed diagnoses, reviewing/ordering tests, adjusting medications, and documenting the findings in this note. MD John Gaytan, [address], [facility] Internal Medicine Staff Physician Extracted from:Title: 0055 [facility] Low Back Pain Author: THEODORE HERNANDEZ DO Date: 02/12/23 Low back pain History of low back pain 2/2 DJD without acute changes. No new symptoms or red flags. Patient's exam unremarkable. Will place referral to PT as requested, patient also advised to discuss with mamma logist to ensure he/she is not concerned about an autoimmune condition (he is not demonstrating signs or symptoms). Referral placed. Patient encouraged to return to clinic, present to UCC or ER for persistent worsening or development of other concerning symptoms. Patient cites understanding and agrees with plan of care. A total of 40 minutes was spent on this visit reviewing previous notes, counseling the patient on the listed diagnoses, reviewing/ordering tests, adjusting medications, and documenting the findings in this note. Carole Hernandez DO, [facility], [facility] Internal Medicine, [place] [facility] Future Scheduled TestsLaboratoryVitamin B12 [id number] 01/16/25Hemoglobin A1c 01/16/25Hepatitis C Antibody 01/16/25Prostate Specific Antigen 01/16/25CBC w/ Diff 01/16/25Lipid Panel 01/16/25 06/26/2024 Unknown Organization Functional Status Combined list of recent functional and cognitive assessments recorded at [facility] of Defense and Veterans Affairs (VA).VA Functional [place] Measurement (FIM) Scale: 1 = Total Assistance (Subject = 0% +), 2 = Maximal Assistance (Subject = 25% +), 3 = Moderate Assistance (Subject = 50% +), 4 = Minimal Assistance (Subject = 75% +), 5 = Supervision, 6 = Modified [place] (Device), 7 = Complete [place] (Timely, Safely). Assessment Date/Time Source Assessment Type Assessment Skill Assessment Score Assessment Details No data available for this section
--- OUTSIDE RECORDS SUMMARY | 2024-06-26 00:52 | XMS_ITS | Encounter Summary ---
Author Organization [facility] Address [address] [place] [address] Care Team Providers Care Quality Assurance Coach Name Role Phone Isaiah Rutledge DO Primary Care Provider + Clinic[address] Primary Care Prov ider Encounter Details Date Type Department Care Team (Late Contact Info) Description 06/05/2010 [facility] Visit EXTERNAL [facility] DEPT Isaiah Rutledge, [address] [place] [address] Social History Tobacco Use Types Packs/Day Years Used Date Smoking Tobacco: Every Day Cigars Comments:1 CIGAR PER WEEK Alcohol Use Standard Drinks/Week Comments Yes 0.8 (1 standard drink = 0.6 oz p ure alcohol) social Sex and Gender Information Value Date Recorded Sex Assigned at Not on file Gender Identity Not on file Sexual Orientation Not on file documented as of this encounter Plan of Treatment Upcoming Encounters Date Type Department Care Team (Late Contact Info) Description 07/06/2024 8:20 AM CDT Office Visit [facility] [address] [place] [address] Samaria Young, DO [address] [place] [address] 09/21/2024 2:00 PM CDT Office Visit [facility] - Rheumatology [address] [place] [phone] Vickie Benavides MD [address] [place] [phone] documented as of this encounter Visit Diagnoses Not on filedocumented in this encounter Care Teams Quality Assurance Coach Relationship Specialty Start Date End Date Isaiah Rutledge DO PCP - General 09/07/09 10/20/[address] [facility] [address] [place] [address] PCP - General 10/21/17 documented as of this encounter
--- OUTSIDE RECORDS SUMMARY | 2024-06-26 00:52 | XMS_ITS | Referral Summary ---
Author Organization [facility] Address [address] [place] [address] Care Team Providers Care Mechanical Unit Repairer Name Role Phone Piero Correia MD Primary Care Provi [facility] Encounters Date Type Department Care Team Description 06/09/2024 2:30 PM CDT Office Visit [facility] Neurosurgery [address] [facility] Medical Office Building [address] [place] [address] Bhavik Bundy MD Cervical disc disorder with myelopathy of mid-cervical region (Primary Dx) 04/03/2024 11:30 AM SHREDDING SPECIALIST Office Visit [facility] Allergy and Immunology [address] [place] [address] [address] [place] [address] Raman Gomez MD PhD Severe persistent asthma without complication (HCC) (Primary Dx); Allergic conjunctivitis of both eyes; Moderate persistent asthma without complication; Non-seasonal allergic rhinitis, unspecified trigger; Seasonal allergic rhinitis due to pollen from Last 3 Months Allergies Active Allergy Reactions Criticality Noted Date Comments Hydrocodone-Acetaminophen Nausea Only,Rash Medium 06/16 Medications chlorthalidone 25 mg tablet Take 1 tablet (25 mg total) by mouth Active ibuprofen (ADVIL,MOTRIN) 800 mg tablet TAKE 1 TABLET EVERY 8 HOURS NEEDED FOR PAIN 7 Active aspirin 81 mg enteric coated tablet 1 tablet (81 mg total) daily Active losartan (COZAAR) 25 mg tablet Take 1 tablet (25 mg total) by mouth daily Active olopatadine (PATADAY) 0.2 % ophthalmic solution INSTILL 1 DROP IN BOTH EYES DAILY 2.5 mL 11 0 Active triamcinolone (NASACORT) 55 mcg nasal inhaler Administer 2 sprays into each nostril daily Active tiZANidine (ZANAFLEX) 4 mg tablet Take 1 tablet (4 mg total) by mouth every 8 (eight) hours as needed 4 Active methotrexate 2.5 mg tablet 20 EA, 0 Refill(s), TAKE 5 TABLETS BY MOUTH EVERY 7 DAYS, 0 total refill(s), Soft Stop 4 Active mometasone-form oterol (Dulera) 200-5 mcg/actuation inhaler INHALE 2 PUFFS BY MOUTH TWICE DAILY. RINSE MOUTH WITH WATER AFTER USE. DO NOT SWALLOW 13 g 9 5 Active Active Problems Problem Noted Date Diagnosed Date Frequency of micturition 06/09/2024 Poor urinary stream 06/09/2024 Urgency of urination 06/09/2024 Benign prostatic hyperplasia without urinary obs truction 02/10/2024 Cervical stenosis of spinal canal 11/12/2023 Cervical disc disorder with myelopathy of mid-cervical region 11/12/2023 Limb pain 11/11/2023 Hyperlipidemia 11/11/2023 Finding of above normal blood pressure 4 Overview (11/11/2023): Advised patient to check BP at home (he has home bp machine) every other day x 2 weeks. If systolic average >140 or diastolic average >90, then make appt for follow-up with me or a colleague of mine to review this . Pt said he has had isolated elevated BP in the past. So, clear instructions were given to patient for follow-up. Advised pt get flu shot yearly. [facility] Dermatophytosis 11/11/2023 Current smoker 11/11/2023 Secondary localized osteoarthrosis, forearm 10/17 Rheumatoid arthritis 11/11/2023 Rash 11/11/2023 Morbid obesity 11/11/2023 Macrocytosis 11/11/2023 Localized superficial swelling of skin 4 Gammaherpesviral mononucleosis 10/14/2023 Enlarged lymph nodes, unspecified 10/14/2023 Bacteremia 10/14/2023 OAG (open angle glaucoma) suspect, low risk, yvette ateral 05/02/2023 Assessment & Plan (05/02/2023 9:23 AM SHREDDING SPECIALIST): Normal intraocular pressure (IOP) Ou- Slightly thin cct OU Previous stable RNFL both eyes (OU) No family history FU 1 year On oct and intraocular pressure (IOP) check Dry eye syndrome of both eyes 05/02/2023 Assessment & Plan (05/02/2023 9:24 AM SHREDDING SPECIALIST): Cont pataday qam and art tears night, monitor Nuclear age-related cataract, both eyes 10/14/19 20 Assessment & Plan (05/02/2023 9:24 AM SHREDDING SPECIALIST): NVS, monitor Presbyopia 10/14/2019 Meibomian gland dysfunction (MGD) of upper and lower lids of both eyes 12/19/2018 Allergic conjunctivitis of both eyes 12/19/2018 Encounter for therapeutic drug monitoring 2017 Hypogonadotropic hypogonadism in male 12/04/2016 Assessment & Plan (03/25/2017 4:17 PM SHREDDING SPECIALIST): Normal T levels x 2 Discussed with pt at length No indication for T replacement Assessment & Plan (12/04/2016 3:04 PM CDT): Pathophysiology of the condition discussed at length. The importance to differentiate between primary vs secondary hypogonadism was discussed. Need to clarify diagnoses and plan treatment based on results was also also discussed. Side effects of T replacement was also explained. Will recheck T levels, morning ,around 8 am X 2 , about a week apart Recheck FSH and LH Check prolactin levels. Abnormal EKG 03/21/2016 Overview (10/22/2019): EKG done on 03/21/2016 showed ectopic atrial rhythm possible inferior infarct. No acute ST changes noted Dyslipidemia 03/21/2016 Overweight 03/21/2016 Pain in throat and chest 03/14/2016 HTN (hypertension) 03/14/2016 History of total knee replacement 07/26/2015 Adverse drug effect 04/17/2012 Encounter for long-term (cur rent) use of high-risk medication 04/17/2012 Osteoarthritis 04/17/2012 Chondromalacia of patella 07/17/2011 Knee pain 06/01/2011 Osteoarthritis of both knees 01/16/2011 ED (erectile dysfunction) 08/31/2009 Assessment & Plan (03/25/2017 4:20 PM SHREDDING SPECIALIST): Partial replacement to Viagra Advised on increasing dose up to 100 mg Other options including vacuum pump discussed Pt also thinks he might have a penile abnormality, to discuss with urologist. Allergic rhinitis 08/31/2009 Asthma 08/31/2009 Rheumatoid arthritis(714.0) 08/31/2009 Overview (10/22/2019): Overview: ICD-10 update 2015 Immunizations Immunization Administration Dates Next Due Hep A, Adult 10/22/1995,10/17/1994 Influenza, Quadrivalent, Rec ombinant, Egg Free, Preservative Free, Intramuscular 12/28/2019 Influenza, Quadrivalent, Spl it, Intramuscular 02/04/2002 Influenza, Quadrivalent, Spl it, Preservative Free, Intramuscular 12/28/2019 Influenza, Split 04/06/2001, 1,01/16/1999,04/27,02/17/1997 Influenza, Trivalent, Preser vative Free, Intramuscular 12/19/2012 Influenza, Unspecified 12/31/2022,2021,01/16/2019,01/16,02/04/2002,04/06/2001,03/21/2000 ,01/16/1999,04/27/1998,02/17/1997 MMR 04/18/1978 Meningococcal Polysaccharide (Menomune) 02/17/1997,06/07/1992 OPV 08/17/1979,04/18/1978 PPD TEST 06/26/2016, 5,08/24/2011,09/30,07/28/2007,07/31/2005,10/12/2002 ,12/24/2000,04/27/1998,10/22/1995 Pfizer SARS-CoV-2 Monovalent Vaccination (12+ Yrs) PURPLE 05/20/2020,05/01/2020 Td, adsorbed 10/11/2017,01/04/1992 Tdap 12/17/2019,07/31/2007 Typhoid H-P SQ/ID 04/27/1998 Typhoid Live 01/04/1992 Typhoid, Unspecified 12/17/1994 Typohid AKD SQ 12/17/1994 Yellow Fever 10/12/1988 ZOSTER Recombinant 03/23/2020,12/17/2019 Social History Tobacco Use Types Packs/Day Years Used Date Smoking Tobacco: Never Passive Smoke Exposure: Never Smokeless Tobacco: Never Tobacco Cessation:Counseling Given: No Comments:occasional cigar Alcohol Use Standard Drinks/Week Comments Yes 0 (1 standard drink = 0.6 oz pur e alcohol) AUDIT-C Answer Date Recorded Q1: How often do you have a drink containing alc ohol? 2-3 times a week 11/12/2023 Q2: How many drinks containi ng alcohol do you have on a typical day when you are drinking? 1 or 2 11/12/2023 Q3: How often do you have si x or more drinks on one occasion? 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 Not on file Not on file Last Filed Vital Signs Vital Sign Reading Time Taken Comments Blood Pressure 135/81 04/03/2024 11:20 AM SHREDDING SPECIALIST Pulse 65 04/03/2024 11:20 AM SHREDDING SPECIALIST Temperature 36.2 C (97.2 F) 04/03/2024 11:20 AM SHREDDING SPECIALIST Respiratory Rate 18 11/29/2023 8:29 AM CDT Oxygen Saturation 97% 04/03/2024 11:20 AM SHREDDING SPECIALIST Inhaled Oxygen Concentration - - Weight 107 kg (236 lb) 06/09/2024 2:06 PM CDT Height 190.5 cm (6' 3 ) 06/09/2024 2:06 PM CDT Body Mass Index 29.5 06/09/2024 2:06 PM CDT Plan of Treatment Not on file Insurance [facility] [place] [address] [place] [address] [employer] [place] [employer] [place] [facility] Care Teams Mechanical Unit Repairer Relationship Specialty Start Date End Date Piero Correia MD [address] [facility] [address] [place], [place] [id number] PCP - General Internal Medicine 11/12/23
--- OUTSIDE RECORDS SUMMARY | 2024-06-26 00:52 | XMS_ITS | Clinical Summary ---
Author Organization [facility] Address [address] [place] [address] Care Team Providers Care Plate Worker Name Role Phone Piero Correia MD Primary Care Provi yamileth Allergies Active Allergy Reactions Criticality Noted Date [...] follow-up. Advised pt get flu shot yearly. [facility] Dermatophytosis 11/11/2023 Current smoker 11/11/2023 Secondary localized osteoarthrosis, forearm 10/17 Rheumatoid arthritis 11/11/2023 Rash 11/11/2023 Morbid obesity 11/11/2023 Macrocytosis 11/11/2023 Localized superficial swelling of skin Gammaherpesviral mononucleosis 10/14/2023 Enlarged lymph nodes, unspecified 10/14/2023 Bacteremia 10/14/2023 OAG (open angle glaucoma) suspect, low risk, yvette ateral 05/02/2023 Assessment & Plan (05/02/2023 9:23 AM DIE MAINTENANCE): Normal intraocular pressure (IOP) Ou- Slightly thin cct OU Previous stable RNFL both eyes (OU) No family history FU 1 year On oct and intraocular pressure (IOP) check Dry eye syndrome of both eyes 05/02/2023 Assessment & Plan (05/02/2023 9:24 AM DIE MAINTENANCE): Cont pataday qam and art tears night, monitor Nuclear age-related cataract, both eyes 10/14/19 20 Assessment & Plan (05/02/2023 9:24 AM DIE MAINTENANCE): NVS, monitor Presbyopia 10/14/2019 Meibomian gland dysfunction (MGD) of upper and lower lids of both eyes 12/19/2018 Allergic conjunctivitis of both eyes 12/19/2018 Encounter for therapeutic drug monitoring 2017 Hypogonadotropic hypogonadism in male 12/04/2016 Assessment & Plan (03/25/2017 4:17 PM DIE MAINTENANCE): Normal T levels x 2 Discussed with [...] 08/31/2009 Assessment & Plan (03/25/2017 4:20 PM DIE MAINTENANCE): Partial replacement to Viagra Advised on increasing dose up to 100 mg Other options including vacuum pump discussed Pt also thinks he might have a penile abnormality, to discuss with urologist. Allergic rhinitis 08/31/2009 Asthma 08/31/2009 Rheumatoid arthritis(714.0) 08/31/2009 Overview (10/22/2019): Overview: ICD-10 update 2015 Encounters Date Type Department Care Team Description 06/09/2024 2:30 PM CDT Office Visit [facility] Neurosurgery [address] [facility] Medical Office Building [address] [place] [address] Bhavik Bundy MD Cervical disc disorder with myelopathy of mid-cervical region (Primary Dx) 04/03/2024 11:30 AM DIE MAINTENANCE Office Visit [facility] Allergy and Immunology [address] [facility] [address] [place] [address] Raman Gomez MD PhD Severe persistent asthma without complication (HCC) (Primary Dx); Allergic conjunctivitis of both eyes; Moderate persistent asthma without complication; Non-seasonal allergic rhinitis, unspecified trigger; Seasonal allergic rhinitis due to pollen from Last 3 Months Immunizations Immunization Administration Dates Next Due Hep [...] 12/17/1994 Yellow Fever 10/12/1988 ZOSTER Recombinant 03/23/2020,12/17/2019 Surgical History Surgery Date Site/Laterality Comments REPLACEMENT TOTAL KNEE BILATERAL KNEE ARTHROSCOPY JOINT REPLACEMENT Medical History Medical History Date Comments Rheumatoid arteritis (HCC) Primary generalized (osteo)arthritis Asthma Hypertension Spine disorder C1-C7 and neck Family History Medical History Relation Name Comments Hypertension Brother Diabetes Father Heart attack Father Heart disease Father Hypertension Father Diabetes Maternal Grandmother Arthritis Mother Diabetes Mother Heart disease Mother Rheum arthritis Mother Stroke Mother Relation Name Status Comments Brother Father Alive Maternal Grandmother Mother Alive Social History Tobacco Use Types Packs/Day Years [...] on file Legal Sex Male 7:04 AM DIE MAINTENANCE Gender Identity Male 12/16/2018 2:24 PM CDT Sexual Orientation Straight 12/16/2018 2: 24 PM CDT 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 on file Not on file Not on file Obstetrics History Last Filed Vital Signs Vital Sign Reading Time Taken Comments Blood Pressure 135/81 04/03/2024 11:20 AM DIE MAINTENANCE Pulse 65 04/03/2024 11:20 AM DIE MAINTENANCE Temperature 36.2 C (97.2 F) 04/03/2024 11:20 AM DIE MAINTENANCE Respiratory Rate 18 11/29/2023 8:29 AM CDT Oxygen Saturation 97% 04/03/2024 11:20 AM DIE MAINTENANCE Inhaled Oxygen Concentration - - Weight 107 kg (236 lb) 06/09/2024 2:06 PM CDT Height 190.5 cm (6' 3 ) 06/09/2024 2:06 PM CDT Body Mass Index 29.5 06/09/2024 2:06 PM CDT Plan of Treatment Health Maintenance Due Date Last Done Comments Colon Cancer Screening-Colonoscopy 1960 Hepatitis C Screening 1960 Prostate Cancer Screening-PSA 1960 Hepatitis B Screening 1978 Regular Well Visit/Exam 18-64 1978 Pneumococcal vaccine <65 (1 of 2 - PCV) 06/28/1979 Depression Screening 03/25/2018 03/25/2017, 12/05/19 17 Covid-19 Vaccine (2023-2 5 season) 2023 11/24/2021, 04/01/2021, 05/20/2020, Additional history exists DTaP/Tdap/Td Vaccine (4 - Td or Tdap) 12/16/2029 12/17/2019, 10/11/2017, 07/31/2007, Additional history exists Zoster Vaccine Completed 03/23/2020, 12/17/2019 Influenza Vaccine Completed 11/29/2023, , 01/02/2022, Additional history exists Insurance [employer] CHOICE [employer] CHOICE [facility] [employer] ACCESS CHOICE [facility] Care Teams Plate Worker Relationship Specialty Start Date End Date Piero Correia MD [address] [facility] [address] [place] [address] PCP - General Internal Medicine 11/12/23
--- OUTSIDE RECORDS SUMMARY | 2024-06-26 00:52 | XMS_ITS | Encounter Summary ---
Author Organization [facility] Care Team Providers Care Aluminum Siding Mechanic Name Role Phone Mesfin Davies MD Primary Care Provider [phone] Elaine Blackwood MD Primary Care Provider Mesfin Davies MD Primary Care Provider [phone] Elaine Black[place] MD Primary Care Provider Estephanie Coates DO Primary Care Provider [phone] Piero Correia MD Primary Care Provi yamileth Encounter Details Date Type Department Care Team (Latest Contact Info) Description 01/31/2016 Orders Only [facility]INCON[facility] ProviderVarinder MD [address] [place] [id number] Social History Tobacco Use Types Packs/Day Years Used Date Smoking Tobacco: Never Assessed Sex and Gender Information Value Date Recorded Sex Assigned at Not on file Legal Sex Male 7:04 AM DIGITAL STRATEGY SPECIALIST Gender Identity Male 12/16/2018 2:24 PM CDT Sexual Orientation Straight 12/16/2018 2: 24 PM CDT documented as of this encounter Plan of Treatment Not on file documented as of this encounter Procedures Procedure Name Priority Date/Time Associated Diagnosis Comments SCAN - LABS 03/07/2016 12:00 AM DIGITAL STRATEGY SPECIALIST documented in this encounter Results * SCAN - LABS (03/07/2016 12:00 AM DIGITAL STRATEGY SPECIALIST) Narrative 03/07/2016 12:00 AM DIGITAL STRATEGY SPECIALIST Ordered by an unspecified provider. us Historical Provider Final Res ult documented in this encounter Visit Diagnoses Not on filedocumented in this encounter Care Teams Aluminum Siding Mechanic Relationship Specialty Start Date End Date Mesfin Davies MD PCP - General 11/26/16 11/26/16 Elaine Black[place] MD [address] [facility], [place] [address] PCP - General Family Practice 11/27/16 12/13/16 Mesfin Davies MD PCP - General 12/14/16 03/24/17 Elaine Black[place] MD [address] [facility], [place] [id number] PCP - General Family Practice 03/25/17 10/13/19 Estephanie Coates DO [address] [facility], [place] [address] PCP - General Family Medicine 10/14/19 11/11/23 Piero Correia MD [address] [facility] [address] [facility] [id number] PCP - General Internal Medicine 11/12/23 documented as of this encounter
--- OUTSIDE RECORDS SUMMARY | 2024-06-26 00:52 | XMS_ITS | Clinical Summary ---
Author Organization [facility] Address [facility] [place] [address] Care Team Providers Care Athletic Team Physician Name Role Phone Micha Braun DO Primary Care Provider [phone] Allergies Active Allergy Reactions Criticality Noted Date Comments Hydrocodone Rash Medium 09/26/2015 Hydrocodone-Acetaminophe n Nausea Only,Rash Medium 07/05/2015 Other reaction(s): Nausea Only Medications HUMIRA PEN 40 MG/0.8ML injection INJECT 40 MG (0.8 ML) UNDER THE SKIN EVERY TWO WEEKS 05/08/2022 Active DULERA 200-5 MCG/ACT Aerosol INHALE 2 PUFFS BY MOUTH 2 TIMES DAILY. RINSE MOUTH WITH WATER AFTER USE. DO NOT SWALLOW. Active losartan (COZAAR) 25 MG tablet Take 1 tablet (25 mg total) by mouth daily. Active chlorthalidone (HYGROTEN) 25 MG tablet Take 1 tablet (25 mg total) by mouth. Active ibuprofen (MOTRIN) 800 MG tablet Take 1 tablet (800 mg total) by mouth. 04/17/2022 Active mometasone (NASONEX) 50 MCG/ACT nasal spray 1 spray by Nasal route 2 (two) times daily. Active Active Problems Problem Noted Date Diagnosed Date Encounter for screening colonoscopy 08/16/2022 Overview (08/16/2022): Added automatically from request for surgery [id number] Family History Medical History Relation Comments Hypertension Father Hypertension Mother Relation Status Comments Father Alive Mother Alive Social History Tobacco Use Types Packs/Day Years Used Date Smoking Tobacco: Never Smokeless Tobacco: Never Tobacco Cessation:Counseling Given: No Alcohol Use Standard Drinks/Week Comments Yes 0 (1 standard drink = 0.6 oz pur e alcohol) PHQ-2 Answer Date Recorded Patient Health Questionnaire-2 Score 0 08/15/2022 Sex and Gender Information Value Date Recorded Sex Assigned at Not on file Legal Sex Male 7:06 PM CDT Gender Identity Not on file Sexual Orientation Not on file Last Filed Vital Signs Vital Sign Reading Time Taken Comments Blood Pressure 120/70 08/15/2022 2:55 PM CDT Pulse 72 08/15/2022 2:55 PM CDT Temperature 35.9 C (96.7 F) 08/15/2022 2:55 PM CDT Respiratory Rate - - Oxygen Saturation 99% 08/15/2022 2:55 PM CDT Inhaled Oxygen Concentration - - Weight 103.1 kg (227 lb 6.4 oz) 08/15/2022 2:55 PM CDT Height 190.5 cm (6' 3 ) 08/15/2022 2:55 PM CDT Body Mass Index 28.42 08/15/2022 2:55 PM CDT Plan of Treatment Health Maintenance Due Date Last Done Comments Colorectal Cancer Screening Colonoscopy (10 Years) 1960 Annual Physical 06/28/1963 Hepatitis C 1978 COVID-19 Vaccine ( season) 2023 12/21/2022, 11/24/2021, 04/01/2021, Additional history exists PHQ-2 (Physician [place]) 03/18/2024 08/15/2022 DTaP, Tdap and Td Vaccines (4 - Td or Tdap) 12/16/2029 12/17/2019, 10/11/2017, 07/31/2007, Additional history exists RSV Immunization or 60+ Years (1 - 1-dose 75+ series) 06/28/2035 Meningococcal Vaccine Aged Out 02/17/1997, 993 No longer eligible based on patient's age to complete this topic Zoster Vaccines Completed 03/23/2020, 12/17/2019 Meningococcal B Vaccine Aged Out No l onger eligible based on patient's age to complete this topic Pneumococcal Vaccine: Pediatrics (0 to 5 Years) and At-Risk Patients (6 to 64 Years) Aged Out No longer eligible based on patient's age to complete this topic RSV Immunizations Under 20 Months Aged Out No longer eligible based on patient's age to complete this topic Insurance [facility] Care Teams Athletic Team Physician Relationship Specialty Start Date End Date Micha Braun DO [address] [place] [address] PCP - General INTERNAL MEDICINE 05/09/22
--- OUTSIDE RECORDS SUMMARY | 2024-06-26 00:52 | XMS_ITS | Encounter Summary ---
Author Organization [facility] Address [address] [place] [address] Care Team Providers Care Business Intelligence Architect Name Role Phone [address] Primary Care Prov ider Encounter Details Date Type Department Care Team (Late Contact Info) Description 06/14/2021 Lab Requisition [facility] [address] [facility], [place] [phone] Daquan Kinney MD [address] [place] [address] Social History Tobacco Use Types Packs/Day Years Used Date Smoking Tobacco: Some Days Cigarettes Last attempted to quit: 05/21/2012 Cigars Smokeless Tobacco: Never Comments:1 CIGAR PER WEEK, q uit cigarettes 05/2012 Alcohol Use Standard Drinks/Week Comments Yes 0.8 (1 standard drink = 0.6 oz p ure alcohol) social PHQ-2 Answer Date Recorded PHQ2 TOTAL SCORE 0 02/01/2021 Sex and Gender Information Value Date Recorded Sex Assigned at Not on file Gender Identity Not on file Sexual Orientation Not on file documented as of this encounter Plan of Treatment Upcoming Encounters Date Type Department Care Team (Late Contact Info) Description 07/06/2024 8:20 AM CDT Office Visit [facility] - [facility] [address] [place] [address] Samaria Young, DO [address] [address] 09/21/2024 2:00 PM CDT Office Visit [facility] - Rheumatology [address] [place] [phone] Vickie Benavides MD [address] [facility] [place] [phone] documented as of this encounter Goals Goal Patient Goal Type Associated Problems Recent Progress Patient-Stated? Author [facility] Lifestyle: Have labs drawn Lifestyle No Melissa Munoz documented as of this encounter Procedures Procedure Name Priority Date/Time Associated Diagnosis Comments DERMATOPATHOLOGY Routine 06/13/2021 12:0 0 AM CDT documented in this encounter Results * DERMATOPATHOLOGY (06/13/2021 12:00 AM CDT) Case Report Dermatopathology Report Case: [id number] Authorizing Provider: Daquan Kinney MD Collected: 06/13/2021 12:00 AM Ordering Location: [facility] Received: 06/14/2021 04:27 PM Pathologist: Uma Shay MD Specimen: Skin, left mid chest 12:48 PM CDT DERMATOPATHOLOGY LABORATORY Final Diagnosis Specimen A. SKIN, left mid chest: LENTIGINOUS MELANOCYTIC NEVUS, COMPOUND TYPE, IRRITATED (COMPOUND MELANOCYTIC NEVUS WITH ARCHITECTURAL DISORDER) (D22.5) 12:48 PM CDT DERMATOPATHOLOGY LABORATORY Clinical History Nevus vs MM. Path # [id number]. 12:48 PM CDT DERMATOPATHOLOGY LABORATORY Gross Description Specimen A: Received is one formalin filled container labeled with the patient's name and designated left mid chest. The specimen consists of a shave biopsy measuring [id number]. Jar 0. 12:48 PM CDT DERMATOPATHOLOGY LABORATORY Microscopic Description Specimen A. SKIN, left mid chest: This is a compound nevus. There is melanin pigment in the stratum corneum. There is architectural disorder characterized by a lentiginous proliferation of melanocytes between irregular nevus nests of cells along the dermal epidermal junction. There is underlying fibroplasia of the papillary dermis. The intradermal component is bland in appearance and matures with depth. (Compound Juancarlos's Nevus or Compound Dysplastic Nevus) 2 12:48 PM CDT DERMATOPATHOLOGY LABORATORY Disclaimer An external and internal positive and negative controls are appropriate for the histochemical, immunohistochemical and immunofluorescence stain(s) in this case (if any), except where stated explicitly. The performance characteristics of the stain(s) cited in this report were developed and its performance characteristic determined by the Dermatopathology Laboratory at [facility], directed by Dr. Sanjana Ham. These tests need not be, and therefore are not, approved by the [place] Food and Drug Administration. The tests are used for clinical purposes. Billing Codes Specimen Charges Stain Charges 38914 1 2 12:48 PM CDT DERMATOPATHOLOGY LABORATORY Embedded Images 2 12:48 PM CDT DERMATOPATHOLOGY LABORATORY Pathology/Cytolog y TISSUE SPECIMEN FROM SKIN / Unknown 06/13/2021 06/14/2021 4:27 PM CDT Daquan Kinney MD LAB - PATHOLOGY/CYTO LOGY ORDERABLES DERMATOPATHOLOGY LABORATORY [facility] - Department of Dermatology [facility] Medicine [address] [place] [address], [address] [phone] documented in this encounter Visit Diagnoses Not on filedocumented in this encounter Care Teams Business Intelligence Architect Relationship Specialty Start Date End [facility] [address] [place] [address] PCP - General 10/21/17 documented as of this encounter
[2024-06-26 08:40] VITALS: BP 123/77; PULSE 62; RESP 18; TEMP 36.6; O2SAT 99
[2024-06-26] MEDS: LACTATED RINGERS 1,000 ML 150 ML IV CONT (08:48)
--- NOTE | 2024-06-26 08:59 | P.PNAN_ITS ---
Anes - Initial Pre Proc Eval Procedure: Operation Date: 06/26/24 09:45 Proposed Procedures p Screening Colonoscopy - Neri Puente MD Date/Time: 06/26/24 08:59 Surgeon: Neri Puente MD Pre Op Diagnosis: Screening Patient Data Age: 63 Gender: M Height: 1.91 m Weight: 104.1 kg Last Vital Signs Temp 98 F 06/26/24 08:40 Pulse 62 06/26/24 08:40 Resp 18 06/26/24 08:40 BP 123/77 06/26/24 08:40 Pulse Ox 99 06/26/24 08:40 O2 Del Method Room Air 06/26/24 08:40 Allergies Allergy/AdvReac Type Severity Reaction Status Date / Time codeine AdvReac Severe Other Verified 06/26/24 08:38 hydrocodone (From [place]) AdvReac Severe Other Verified 06/26/24 08:38 Home Medications ?Medication ?Instructions ?Recorded ?Confirmed ?Type mometasone-formoterol HFA 200 2 puff inhalation BID 07/02/22 06/26/24 History mcg-5 mcg/actuation aerosol inhaler (Dulera) adalimumab 40 mg/0.8 mL See Rx Instructions .Route .COMPLEX 09/16/23 06/22/24 History subcutaneous pen kit (Humira Pen) linezolid 600 mg tablet 600 mg PO Q12HR #11 tabs 09/25/23 06/22/24 Rx losartan 50 mg tablet (Cozaar) 50 mg PO DAILY #30 tabs 09/25/23 06/26/24 Rx metoprolol tartrate 25 mg tablet 25 mg PO BID #60 tabs 09/25/23 06/26/24 Rx ibuprofen 800 mg tablet 800 mg PO TID 06/22/24 06/26/24 History methotrexate sodium 2.5 mg tablet 2.5 mg PO WEEKLY 06/22/24 06/26/24 History rosuvastatin 5 mg tablet 5 mg PO DAILY 06/22/24 06/26/24 History Patient hx anesthesia problems: none Family hx anesthesia problems: none Results Review: All pre-operative results and documents have been reviewed as part of the pre- operative evaluation. [facility] Past Medical History Medical History (Updated 09/24/23 @ 15:49 by Mateo Fonseca MD) White matter disease, unspecified Right optic neuritis Immunocompromised patient Hypertension Rheumatoid arthritis Asthma Surgical History Surgical History History of bilateral knee arthroplasty (2016) Family History Family History Father Heart disease Mother Diabetes mellitus Heart disease Grandparent Diabetes mellitus Social History Social History Social History: Surrogate medical decision maker: Tori Irene, spouse. Code status: Full code. Smoking status: Never smoker Alcohol intake: current Drinks per week: 2 Alcohol use details: BEER Substance use: never Substance use type: does not use Do You Feel Safe in your Home?: Yes Lack of Transportation: No Lack of Food: Never True Current Housing: I Have Housing Concerned About Future Housing: No Difficulty Paying Gas/Electric Bills: No Difficulty Paying for Meds: No Currently Unemployed: No Education: Trade/Vocational Certificate Difficulty w/ Childcare or Family Care: No Living arrangements: with family Additional living arrangements comments: Lives with spouse in [place]. Additional occupation/education comments: [employer]. Spiritual care concerns: No Anes - Eval Final PreProcedure Day of Procedure 06/26/24 08:59 Patient weight: normal Heart: regular rate and rhythm Lungs: clear to auscultation Airway: Mallampati scale class II Neurological: alert and oriented Last oral intake: >/= 8 hours ASA classification: III Emergent: no Anesthetic plan: proceed Anesthesia type and monitoring: general GIVS and standard monitoring Results Review: All pre-operative results and documents have been reviewed as part of the pre- operative evaluation. Informed Consent: The patient's anesthetic plan and its attendant risks and benefits were d iscussed with the patient/family/POA. Questions were solicited and answers provided to the satisfaction of the patient/family/POA.
--- NOTE | 2024-06-26 09:14 | PM.HPGS ---
History of Present Illness History of Present Illness Consent: Risks, benefits, and alternatives have been discussed and questions answered. Patient agrees to proceed with procedure. Chief complaint: Screening Narrative: Montez Irene is a 63 year old male here for screening colonoscopy, last one more than 10 years ago Review of Systems Review of Systems: All systems reviewed & are unremarkable except as noted in HPI and below PMFSH Past Medical History Medical History (Updated 06/26/24 @ 09:15 by Neri Puente MD) Colon cancer screening White matter disease, unspecified Right optic neuritis Immunocompromised patient Hypertension Rheumatoid arthritis Asthma Surgical History Surgical History History of bilateral knee arthroplasty (2016) Family History Family History Father Heart disease Mother Diabetes mellitus Heart disease Grandparent Diabetes mellitus Social History Social History Social History: Surrogate medical decision maker: Tori Irene, spouse. Code status: Full code. Smoking status: Never smoker Alcohol intake: current Drinks per week: 2 Alcohol use details: BEER Substance use: never Substance use type: does not use Do You Feel Safe in your Home?: Yes Lack of Transportation: No Lack of Food: Never True Current Housing: I Have Housing Concerned About Future Housing: No Difficulty Paying Gas/Electric Bills: No Difficulty Paying for Meds: No Currently Unemployed: No Education: Trade/Vocational Certificate Difficulty w/ Childcare or Family Care: No Living arrangements: with family Additional living arrangements comments: Lives with spouse in [place]. Additional occupation/education comments: [employer]. Spiritual care concerns: No Meds Home Medications and Allergies Home Medications ?Medication ?Instructions ?Recorded ?Confirmed ?Type mometasone-formoterol HFA 200 2 puff inhalation BID 07/02/22 06/26/24 History mcg-5 mcg/actuation aerosol inhaler (Dulera) adalimumab 40 mg/0.8 mL See Rx Instructions .Route .COMPLEX 09/16/23 06/22/24 History subcutaneous pen kit (Humira Pen) linezolid 600 mg tablet 600 mg PO Q12HR #11 tabs 07/10/24 04/07/25 Rx losartan 50 mg tablet (Cozaar) 50 mg PO DAILY #30 tabs 09/25/23 06/26/24 Rx metoprolol tartrate 25 mg tablet 25 mg PO BID #60 tabs 09/25/23 06/26/24 Rx ibuprofen 800 mg tablet 800 mg PO TID 06/22/24 06/26/24 History methotrexate sodium 2.5 mg tablet 2.5 mg PO WEEKLY 06/22/24 06/26/24 History rosuvastatin 5 mg tablet 5 mg PO DAILY 06/22/24 06/26/24 History Allergies Allergy/AdvReac Type Severity Reaction Status Date / Time codeine AdvReac Severe Other Verified 06/26/24 08:38 hydrocodone (From [place]) AdvReac Severe Other Verified 06/26/24 08:38 Vital Signs Vital Signs - 24 hr 06/26/24 08:40 Temperature 98 F Pulse Rate 62 Respiratory Rate 18 Blood Pressure 123/77 Pulse Oximetry 99 Oxygen Delivery Room Air Exam Const: General: comfortable and no acute distress HENMT: Face/Nose/Sinus: Normal nares present Eyes: General: appearance normal, both eyes and all related structures Neck: Neck: no JVD Resp: Auscultation: clear to auscultation bilaterally Cardio: Rate: regular rate Rhythm: regular rhythm GI: Inspection: non-distended GI Palp: Yes Soft to palpation Skin: General skin exam: normal color Neuro: General: gait normal Speech: normal speech Extrem: General: normal to inspection Psych: Mental Status: mental status grossly normal Assessment and Plan Assessment and plan (1) Colon cancer screening: Code(s): Z12.11 - Encounter for screening for malignant neoplasm of colon Status: Acute Assessment and Plan: colonoscopy
[2024-06-26 09:33] VITALS: BP 101/64; PULSE 60; RESP 18; O2SAT 99
[2024-06-26 09:43] VITALS: BP 101/63; PULSE 60; RESP 18; O2SAT 96
[2024-06-26 09:50] VITALS: BP 115/63; PULSE 60; RESP 18; O2SAT 97
== END 2024-06-26 09:59 | disposition home or self-care (01) ==
PROVIDERS: Visit Provider Internal Medicine Gastroenterology
PROC: 0DJD8ZZ Inspection of Lower Intestinal Tract, Via Natural or Artificial Opening Endoscopic (ICD-10-PCS; CPT 45378; principal; 2024-06-26 09:45)
DX: Z12.11 Encounter for screening for malignant neoplasm of colon (principal); K63.5 Polyp of colon; K57.30 Diverticulosis of large intestine without perforation or abscess without bleeding; I10 Essential (primary) hypertension; J45.909 Unspecified asthma, uncomplicated; R90.82 White matter disease, unspecified; M06.9 Rheumatoid arthritis, unspecified; H46.8 Other optic neuritis; Z79.51 Long term (current) use of inhaled steroids; Z79.620 Long term (current) use of immunosuppressive biologic; Z79.1 Long term (current) use of non-steroidal anti-inflammatories (NSAID); Z98.890 Other specified postprocedural states; Z82.49 Family history of ischemic heart disease and other diseases of the circulatory system
CPT/HCPCS: 45385; 88305; J2704; J7120